=== PATIENT | male | born 1970 | race Caucasian/White ===

== ENCOUNTER 2017-10-11 11:33 | Inpatient (IN) | payer BC ==
[2017-10-11] MEDS ORDERED: SODIUM CHLORIDE 0.9% 1,000 ML IV ONE (12:40)
[2017-10-11] MEDS ORDERED: LIDOCAINE 2% INJ 20 MG/ML (20 ML MDV) ONE (13:56)
[2017-10-11] MEDS ORDERED: ALPRAZolam 0.25 MG TAB PO PRN (13:57)
[2017-10-11] MEDS ORDERED: ALPRAZolam 0.5 MG TAB PO PRN (13:57)
[2017-10-11] MEDS ORDERED: NITROGLYCERIN SL TABS 0.4 MG TAB SUBLINGUAL PRN ×2 (13:57→14:54)
[2017-10-11] MEDS ORDERED: ASPIRIN 325 MG TAB PO STA (13:57)
[2017-10-11] MEDS ORDERED: MIDAZOLAM 2 MG/2 ML VIAL ONE (14:27)
[2017-10-11] MEDS ORDERED: LIDOCAINE 2% INJ 20 MG/ML SQ ONE (14:29)
[2017-10-11] MEDS ORDERED: MIDAZOLAM 2 MG/2 ML VIAL IV ONE (14:30)
[2017-10-11] MEDS ORDERED: BIVALIRUDIN BOLUS 250 MG/50 ML IV ONE (14:35)
[2017-10-11] MEDS ORDERED: BIVALIRUDIN 250 MG in SODIUM CHLORIDE 0.9% 50 ML IV ONE (14:35)
[2017-10-11] MEDS ORDERED: NITROGLYCERIN 1000MCG/10ML SYRINGE INTRACORON ONE (14:42)
[2017-10-11] MEDS ORDERED: TICAGRELOR 90 MG TAB ONE (14:45)
[2017-10-11] MEDS ORDERED: TICAGRELOR 90 MG TAB PO ONE (14:46)
[2017-10-11] MEDS ORDERED: IOHEXOL 350 MG/ML (PER ML) 100ML BTL INJ ONE (14:48)
[2017-10-11] MEDS ORDERED: ZOLPIDEM 5 MG TAB PO PRN (14:54)
[2017-10-11] MEDS ORDERED: MAG HYDROX/AL HYDROX/SIMETH 30 ML CUP PO PRN (14:54)
[2017-10-11] MEDS ORDERED: RX INFO: IV CONTRAST WAS GIVEN 1 EACH MISC MISCELLANE PRN (14:54)
[2017-10-11] MEDS ORDERED: ATROPINE SULFATE 0.1 MG/ML 10ML SYRINGE IV PRN (14:54)
--- NOTE | 2017-10-11 16:22 | PTCA ---
PERCUTANEOUSTRANS CORORONARY ANGIOGRAPHY DATE OF SERVICE: 10/11/2017. PROCEDURE: PTCA and stenting of dominant distal right coronary artery. PERFORMED BY: Dr. Sarah Marcos. ANESTHESIA: Moderate conscious sedation time 19 minutes. CLINICAL INFORMATION: Mr. Lior Lao is a 47-year-old gentleman with family history of CAD who smokes 1-2 packs a day. He came in to [facility] with a clinical picture of non-ST elevation [facility] and underwent a cardiac cath by Dr. Briscoe. Study revealed an 80-90% distal RCA stenosis and he was transferred with a sheath already in place. He was advised PCI and I discussed with the patient the rationale, risks, benefits, options and proceeded to perform the procedure on the same day. PROCEDURE NOTE: The existing 6-Kyrgyz introducer in the right femoral artery was used to perform the procedure. The patient received Angiomax bolus and infusion as per protocol. He also received 180 mg of Brilinta. A standard right Lorne guide catheter was used to cannulate the right coronary artery. A BMW wire was used to cross the lesion. Without predilatation, a 2.5 caliber 12 mm long Xience stent was deployed at 13 atmospheres. Patient had mild chest discomfort and inferior ST elevation. Excellent angiographic result was achieved without complication. The sheath was taken out and Angio-Seal device used to secure hemostasis and he was sent to the room in stable condition. ASSESSMENT: From the pre PTCA stenosis of about 80-90% after stenting the residual stenosis is 0% with remarkably improved angiographic appearance and flow without complication. Results were discussed with the patient but no family was available. MMODL / IJN: [id number] /
[2017-10-11] MEDS: SODIUM CHLORIDE 0.9% 1,000 ML IV SCH (18:44)
[2017-10-11] MEDS ORDERED: ATORVASTATIN 80 MG TAB PO SCH (21:00)
[2017-10-11] MEDS ORDERED: LISINOPRIL 10 MG TAB PO SCH (21:00)
[2017-10-12] MEDS: SODIUM CHLORIDE 0.9% 1,000 ML IV SCH (06:11)
[2017-10-12 07:24] LABS: Basophils # (A) 0.1 k/uL (0-0.2); Basophils % (A) 1 %; Eosinophils # (A) 0.3 k/uL (0-0.7); Eosinophils % (A) 4 %; HGB 19.8 gm/dL (13.0-17.5); Lymphocytes # (A) 1.6 k/uL (1.0-4.8); Lymphocytes % (A) 18 %; MCH 32.8 pg (25.0-35.0); MCHC 32.6 g/dL (31.0-37.0); MCV 100.5 fL (80.0-100.0); Macrocytosis Slight; Mean Platelet Volume 7.4; Monocytes # (A) 0.6 k/uL (0-1.0); Monocytes % (A) 7 %; Neutrophils # (A) 6.4 k/uL (1.3-7.7); Neutrophils % (A) 69 %; Platelet Count 209 k/uL (150-450); RBC 6.05 m/uL (4.30-5.90); RDW 14.4 % (11.5-15.5); WBC 9.2 k/uL (3.8-10.6)
[2017-10-12 07:28] LABS: Blood Urea Nitrogen 8 mg/dL (9-20); Calcium 9.8 mg/dL (8.4-10.2); Carbon Dioxide 21 mmol/L (22-30); Glucose 108 mg/dL (74-99); Potassium 4.5 mmol/L (3.5-5.1); Sodium 140 mmol/L (137-145)
[2017-10-12 07:42] LABS: Anion Gap 12 mmol/L; Chloride 107 mmol/L (98-107)
[2017-10-12 07:44] LABS: HCT 60.8 % (39.0-53.0)
[2017-10-12] MEDS: NICOTINE 14MG/24HR PATCH TRANSDERM SCH ×2 (08:44→08:55)
[2017-10-12] MEDS ORDERED: CLOPIDOGREL 75 MG TAB PO SCH (09:00)
[2017-10-12] MEDS ORDERED: ASPIRIN 81 MG PO SCH (09:00)
[2017-10-12 09:01] VITALS: BP 135/85; PULSE 62; RESP 18; TEMP 96.5
[2017-10-12 09:46] VITALS: BMI 24.3
--- NOTE | 2017-10-12 10:43 | DS ---
DISCHARGE SUMMARY DATE OF ADMISSION: 10/11/2017 DATE OF DISCHARGE: 10/12/2017. PROCEDURES PERFORMED: Left heart angioplasty with stent placement of right coronary artery. This is a 47-year-old gentleman who was admitted to [facility] with chest pain and underwent cardiac catheterization that revealed a tight stenosis involving right coronary artery. He was transferred to [place] where he underwent angioplasty with stent placement. Overnight he has done well and is free of symptoms. He is free of angina. Groin is free of bleeding or hematoma. Foot pulses are intact. On exam, vital signs are stable. There is no jugular venous distention. Chest is clear to auscultation. Heart exam reveals first and second heart sounds. No gallop. Examination of the extremities did not reveal edema. Peripheral pulses are felt. GROIN: There is no bruit. LABS: His hemoglobin is 19.8. Platelet count is normal. Potassium is 4.5. Creatinine is 0.8. DISCHARGE MEDICATIONS: Discharge medications Include: 1. Aspirin. 2. Lipitor 80 mg daily. 3. Plavix 75 mg daily. 4. Lisinopril 10 mg daily. FOLLOWUP: He will be followed up in my office in a week's time. MMODL / IJN: [id number] /
== END 2017-10-12 11:09 | disposition home or self-care (01) | DRG 247 ==
LOC: 6SEL 15:48
PROVIDERS: ADMIT Internal Medicine Interventional Cardiology; ATTEND Internal Medicine Interventional Cardiology
PROC: 027034Z Dilation of Coronary Artery, One Artery with Drug-eluting Intraluminal Device, Percutaneous Approach (ICD-10-PCS; principal; 2017-10-11 13:59)
DX: I21.4 Non-ST elevation (NSTEMI) myocardial infarction (principal); E78.5 Hyperlipidemia, unspecified; I10 Essential (primary) hypertension; F17.210 Nicotine dependence, cigarettes, uncomplicated; I25.10 Atherosclerotic heart disease of native coronary artery without angina pectoris; Z82.49 Family history of ischemic heart disease and other diseases of the circulatory system
CPT/HCPCS: 80048; 85025

== ENCOUNTER 2018-02-02 08:41 | Observation (INO) | payer BC ==
[2018-02-02] MEDS ORDERED: NITROGLYCERIN OINT 1 INCH/GM PACKET TOPICAL STA (08:50)
[2018-02-02] MEDS ORDERED: ASPIRIN 81 MG PO STA (08:50)
--- NOTE | 2018-02-02 08:55 | ED ---
General Adult HPI - General Chief complaint: Chest Pain Stated complaint: CHEST PAIN Time Seen by Provider: 02/02/18 08:41 Source: EMS, RN notes reviewed Mode of arrival: EMS Limitations: no limitations - History of Present Illness Initial comments: This is a 47-year-old male who presents emergency Department with a past medical history significant for cardiac stents smoking high blood pressure high cholesterol. Patient states he comes in today because started having chest pain about 45 minutes ago at work while exerting himself. Patient states he was mildly short of breath. Patient denies any radiation of the pain today. Patient states it was a pressure sensation just like he had before when he had a stent placed. Patient states the only differences that last time he had radiation of the pain to the neck and arm which she does not have today. Any abdominal pain patient denies any nausea or vomiting. Patient states she was diaphoretic at the scene. Patient states he received an aspirin and nitroglycerin in route and it took away his pain. Patient denies any recent fever chills or cough. Patient denies headache patient denies numbness weakness. - Related Data Home Medications Medication Instructions Recorded Confirmed Ibuprofen [Advil] 400 mg PO Q6HR PRN 02/02/18 02/02/18 Lisinopril [Zestril] 20 mg PO DAILY 02/02/18 02/02/18 Previous Rx's Medication Instructions Recorded Aspirin 81 mg PO DAILY #30 chew 10/12/17 Atorvastatin [Lipitor] 80 mg PO HS #30 tab 10/12/17 Clopidogrel [Plavix] 75 mg PO DAILY #30 tab 10/12/17 Allergies Allergy/AdvReac Type Severity Reaction Status Date / Time amoxicillin Allergy Rash/Hives Verified 02/02/18 09:25 Review of Systems ROS Statement: Those systems with pertinent positive or pertinent negative responses have been documented in the HPI. ROS Other: All systems not noted in ROS Statement are negative. Past Medical History Past Medical History: Chest Pain / Angina, Hypertension Additional Past Medical History / Comment(s): arthritis History of Any Multi-Drug Resistant Organisms: None Reported Past Surgical History: Appendectomy, Heart Catheterization With Stent, Tonsillectomy Additional Past Surgical History / Comment(s): Stent placed September 2017 Smoking Status: Current every day smoker General Exam - General Exam Comments Initial Comments: GENERAL: Patient is well-developed and well-nourished. Patient is nontoxic and well- hydrated and is in mild distress. ENT: Neck is soft and supple. No significant lymphadenopathy is noted. Oropharynx is clear. Moist mucous membranes. Neck has full range of motion without eliciting any pain. EYES: The sclera were anicteric and conjunctiva were pink and moist. Extraocular movements were intact and pupils were equal round and reactive to light. Eyelids were unremarkable. PULMONARY: Unlabored respirations. Good breath sounds bilaterally. No audible rales rhonchi or wheezing was noted. CARDIOVASCULAR: There is a regular rate and rhythm without any murmurs gallops or rubs. ABDOMEN: Soft and nontender with normal bowel sounds. No palpable organomegaly was noted. There is no palpable pulsatile mass. SKIN: Skin is clear with no lesions or rashes and otherwise unremarkable. NEUROLOGIC: Patient is alert and oriented x3. Cranial nerves II through XII are grossly intact. Motor and sensory are also intact. Normal speech, volume and content. Symmetrical smile. MUSCULOSKELETAL: Normal extremities with adequate strength and full range of motion. No lower extremity swelling or edema. No calf tenderness. LYMPHATICS: No significant lymphadenopathy is noted PSYCHIATRIC: Normal psychiatric evaluation. Normal interpersonal interactions appears functionally intact in deals appropriately with others. No signs of depression. No signs of anxiety. Limitations: no limitations Course Vital Signs 02/02/18 02/02/18 08:44 10:26 Temperature 97.8 F Pulse Rate 58 L 53 L Respiratory 18 16 Rate Blood Pressure 154/93 138/75 O2 Sat by Pulse 99 99 Oximetry Medical Decision Making - Medical Decision Making EKG shows sinus bradycardia 57 bpm AL interval 112 QRS is 88 QT interval is 420 QTC is 408. Patient's EKG shows no ST segment elevation or depression or T wave abnormalities are noted. Patient's chest x-ray shows no acute abnormality. Patient had relief with nitroglycerin. Patient was started on heparin because the unstable angina. I spoke with Dr. Kurtz and he agreed to admit the patient admitted the patient I wrote admitting orders I consult to cardiology continue the heparin Nitropaste and aspirin on the floor. - Lab Data Result diagrams: 02/02/18 08:52 02/02/18 08:52 Lab Results 02/02/18 02/02/18 02/02/18 Range/Units 08:52 08:52 08:52 WBC 11.3 H (3.8-10.6) k/uL RBC 3.72 L (4.30-5.90) m/uL Hgb 12.2 L (13.0-17.5) gm/dL Hct 35.0 L (39.0-53.0) % MCV 94.1 (80.0-100.0) fL MCH 32.9 (25.0-35.0) pg MCHC 35.0 (31.0-37.0) g/dL RDW 14.0 (11.5-15.5) % Plt Count 278 (150-450) k/uL Neutrophils % 64 % Lymphocytes % 26 % Monocytes % 6 % Eosinophils % 3 % Basophils % 1 % Neutrophils # 7.2 (1.3-7.7) k/uL Lymphocytes # 2.9 (1.0-4.8) k/uL Monocytes # 0.6 (0-1.0) k/uL Eosinophils # 0.3 (0-0.7) k/uL Basophils # 0.1 (0-0.2) k/uL PT (9.0-12.0) sec INR (<1.2) APTT (22.0-30.0) sec Sodium 140 (137-145) mmol/L Potassium 4.1 (3.5-5.1) mmol/L Chloride 108 H (98-107) mmol/L Carbon Dioxide 20 L (22-30) mmol/L Anion Gap 12 mmol/L BUN 17 (9-20) mg/dL Creatinine 0.77 (0.66-1.25) mg/dL Est GFR (CKD-EPI)AfAm >90 (>60 ml/min/1.73 sqM) Est GFR (CKD-EPI)NonAf >90 (>60 ml/min/1.73 sqM) Glucose 114 H (74-99) mg/dL Calcium 9.4 (8.4-10.2) mg/dL Magnesium 1.7 (1.6-2.3) mg/dL Total Bilirubin 0.9 (0.2-1.3) mg/dL AST 28 (17-59) U/L ALT 40 (21-72) U/L Alkaline Phosphatase 77 (38-126) U/L Total Creatine Kinase 169 (55-170) U/L CK-MB (CK-2) 1.1 (0.0-2.4) ng/mL CK-MB (CK-2) Rel Index 0.7 Troponin I <0.012 (0.000-0.034) ng/mL Total Protein 5.8 L (6.3-8.2) g/dL Albumin 3.8 (3.5-5.0) g/dL 02/02/18 Range/Units 08:52 WBC (3.8-10.6) k/uL RBC (4.30-5.90) m/uL Hgb (13.0-17.5) gm/dL Hct (39.0-53.0) % MCV (80.0-100.0) fL MCH (25.0-35.0) pg MCHC (31.0-37.0) g/dL RDW (11.5-15.5) % Plt Count (150-450) k/uL Neutrophils % % Lymphocytes % % Monocytes % % Eosinophils % % Basophils % % Neutrophils # (1.3-7.7) k/uL Lymphocytes # (1.0-4.8) k/uL Monocytes # (0-1.0) k/uL Eosinophils # (0-0.7) k/uL Basophils # (0-0.2) k/uL PT 10.2 (9.0-12.0) sec INR 1.0 (<1.2) APTT 23.7 (22.0-30.0) sec Sodium (137-145) mmol/L Potassium (3.5-5.1) mmol/L Chloride (98-107) mmol/L Carbon Dioxide (22-30) mmol/L Anion Gap mmol/L BUN (9-20) mg/dL Creatinine (0.66-1.25) mg/dL Est GFR (CKD-EPI)AfAm (>60 ml/min/1.73 sqM) Est GFR (CKD-EPI)NonAf (>60 ml/min/1.73 sqM) Glucose (74-99) mg/dL Calcium (8.4-10.2) mg/dL Magnesium (1.6-2.3) mg/dL Total Bilirubin (0.2-1.3) mg/dL AST (17-59) U/L ALT (21-72) U/L Alkaline Phosphatase (38-126) U/L Total Creatine Kinase (55-170) U/L CK-MB (CK-2) (0.0-2.4) ng/mL CK-MB (CK-2) Rel Index Troponin I (0.000-0.034) ng/mL Total Protein (6.3-8.2) g/dL Albumin (3.5-5.0) g/dL Critical Care Time Critical Care Time: Yes Total Critical Care Time: 35 Disposition Clinical Impression: Unstable angina pectoris Disposition: ADMITTED IP TO THIS HOSP Referrals: Katlyn Díaz MD [Primary Care Provider] - 1-2 days Time of Disposition: 10:35
--- NOTE | 2018-02-02 09:12 | XR ---
EXAMINATION TYPE: XR chest 2V DATE OF EXAM: 02/02/2018 COMPARISON: 05/28/2009 HISTORY: Chest pain TECHNIQUE: Frontal and lateral views of the chest are obtained. FINDINGS: There is no focal air space opacity. No evidence for pneumothorax. No pleural effusion. The cardiac silhouette size is within normal limits. The osseous structures are grossly intact. IMPRESSION: 1. No acute cardiopulmonary process.
[2018-02-02 09:34] LABS: Basophils # (A) 0.1 k/uL (0-0.2); Basophils % (A) 1 %; Eosinophils # (A) 0.3 k/uL (0-0.7); Eosinophils % (A) 3 %; HGB 12.2 gm/dL (13.0-17.5); Lymphocytes # (A) 2.9 k/uL (1.0-4.8); Lymphocytes % (A) 26 %; MCH 32.9 pg (25.0-35.0); MCV 94.1 fL (80.0-100.0); Mean Platelet Volume 7.3; Monocytes # (A) 0.6 k/uL (0-1.0); Monocytes % (A) 6 %; Neutrophils # (A) 7.2 k/uL (1.3-7.7); Neutrophils % (A) 64 %; Platelet Count 278 k/uL (150-450); RBC 3.72 m/uL (4.30-5.90); WBC 11.3 k/uL (3.8-10.6)
[2018-02-02 09:45] LABS: ALT 40 U/L (21-72); AST 28 U/L (17-59); Albumin 3.8 g/dL (3.5-5.0); Alkaline Phosphatase 77 U/L (38-126); Anion Gap 12 mmol/L; Blood Urea Nitrogen 17 mg/dL (9-20); Calcium 9.4 mg/dL (8.4-10.2); Carbon Dioxide 20 mmol/L (22-30); Chloride 108 mmol/L (98-107); Glucose 114 mg/dL (74-99); Magnesium 1.7 mg/dL (1.6-2.3); Potassium 4.1 mmol/L (3.5-5.1); Sodium 140 mmol/L (137-145); Total Bilirubin 0.9 mg/dL (0.2-1.3); Total Protein 5.8 g/dL (6.3-8.2)
[2018-02-02 09:46] LABS: Partial Thromboplastin Time 23.7 sec (22.0-30.0); Prothrombin Time 10.2 sec (9.0-12.0)
[2018-02-02 10:01] LABS: Creatine Kinase 169 U/L (55-170)
[2018-02-02 10:14] LABS: Creatine Kinase MB 1.1 ng/mL (0.0-2.4); Troponin I <0.012 ng/mL (0.000-0.034)
[2018-02-02] MEDS ORDERED: HEPARIN SODIUM,PORCINE 5,000 UNIT/ML 1 ML VIAL IV ONE (10:34)
[2018-02-02] MEDS ORDERED: NITROGLYCERIN SL TABS 0.4 MG TAB SUBLINGUAL PRN (10:36)
[2018-02-02] MEDS ORDERED: HEPARIN SODIUM,PORCINE/D5W PMX 25,000 UNIT in DEXTROSE/WATER 1 500ML.BAG IV SCH (10:45)
[2018-02-02] MEDS ORDERED: HEPARIN SOD,PORK IN 0.45% NACL 25,000 UNIT in 0.45% NACL 1 500ML.BAG IV SCH (10:45)
--- NOTE | 2018-02-02 11:44 | P.HPIM ---
History of Present Illness Is an 65 years old male with past medical history of coronary artery disease, and diverticular disease. SP cardiac cath and stent placement in 09/2017 which showed a right coronary artery stenosis who presents because of chest pain of one-day duration, was at work when he felt central chest pain, nonradiating, pressure-like, 7/10 in severity, similar to the September chest pain when he heart heart attack. His chest pain is almost resolved by the time I'm seeing the patient. Patient confirms to me he was taking his Plavix and aspirin at home as well as at rest of his medication In the ED patient blood cell count of 11.3 K. Hemoglobin 12.2. INR is 1.0. Creatinine 0.77. Chest x-ray shows no acute cardiopulmonary process EKG shows sinus bradycardia with sinus arrhythmia Patient is currently smoker about one PPD, alcohol occasionally, illicit drugs only marijuana, no cough Review of Systems CONSTITUTIONAL: No fever, no malaise, no fatigue. HEENT: No recent visual problems or hearing problems. Denied any sore throat. CARDIOVASCULAR: No orthopnea, PND, no palpitations, no syncope. PULMONARY: No shortness of breath, no cough, no hemoptysis. GASTROINTESTINAL: No diarrhea, no nausea, no vomiting, no abdominal pain. Normoactive bowel sounds. NEUROLOGICAL: No headaches, no weakness, no numbness. HEMATOLOGICAL: Denies any bleeding or petechiae. GENITOURINARY: Denies any burning micturition, frequency, or urgency. MUSCULOSKELETAL/RHEUMATOLOGICAL: Denies any joint pain, swelling, or any muscle pain. ENDOCRINE: Denies any polyuria or polydipsia. Past Medical History Past Medical History: Chest Pain / Angina, Hypertension Additional Past Medical History / Comment(s): arthritis History of Any Multi-Drug Resistant Organisms: None Reported Past Surgical History: Appendectomy, Heart Catheterization With Stent, Tonsillectomy Additional Past Surgical History / Comment(s): Stent placed September 2017 Smoking Status: Current every day smoker Medications and Allergies Home Medications Medication Instructions Recorded Confirmed Type Aspirin 81 mg PO DAILY #30 chew 10/12/17 02/02/18 Rx Atorvastatin [Lipitor] 80 mg PO HS #30 tab 10/12/17 02/02/18 Rx Clopidogrel [Plavix] 75 mg PO DAILY #30 tab 10/12/17 02/02/18 Rx Ibuprofen [Advil] 400 mg PO Q6HR PRN 02/02/18 02/02/18 History Lisinopril [Zestril] 20 mg PO DAILY 02/02/18 02/02/18 History Allergies Allergy/AdvReac Type Severity Reaction Status Date / Time amoxicillin Allergy Rash/Hives Verified 02/02/18 09:25 Physical Exam Vitals: Vital Signs Temp Pulse Resp BP Pulse Ox 02/02/18 11:06 50 L 18 123/70 99 02/02/18 10:26 53 L 16 138/75 99 02/02/18 08:44 97.8 F 58 L 18 154/93 99 Intake and Output 02/01/18 02/02/18 02/02/18 22:59 06:59 14:59 Other: Weight 73.482 kg GENERAL: The patient is alert and oriented x3, not in any acute distress. Well developed, well nourished. HEENT: Pupils are round and equally reacting to light. EOMI. No scleral icterus. No conjunctival pallor. Normocephalic, atraumatic. No pharyngeal erythema. No thyromegaly. CARDIOVASCULAR: S1 and S2 present. No murmurs, rubs, or gallops. PULMONARY: Chest is clear to auscultation, no wheezing or crackles. ABDOMEN: Soft, nontender, nondistended, normoactive bowel sounds. No palpable organomegaly. MUSCULOSKELETAL: No joint swelling or deformity. EXTREMITIES: No cyanosis, clubbing, or pedal edema. NEUROLOGICAL: Gross neurological examination did not reveal any focal deficits. SKIN: No rashes. Results CBC & Chem 7: 02/02/18 08:52 02/02/18 08:52 Labs: Abnormal Lab Results - Last 24 Hours (Table) 02/02/18 02/02/18 Range/Units 08:52 08:52 WBC 11.3 H (3.8-10.6) k/uL RBC 3.72 L (4.30-5.90) m/uL Hgb 12.2 L (13.0-17.5) gm/dL Hct 35.0 L (39.0-53.0) % Chloride 108 H (98-107) mmol/L Carbon Dioxide 20 L (22-30) mmol/L Glucose 114 H (74-99) mg/dL Total Protein 5.8 L (6.3-8.2) g/dL Assessment and Plan Plan: -Chest pain syndrome, patient has history of CAD, SP catheter and stent placement on 09/2017, and consult cardiology team for evaluation. First troponin is negative at less than 0.012. Patient is on heparin drip, continue with aspirin. He was on Plavix at home -Bradycardia, heart rate is in the 50s. Patient denies dizziness. He is not on beta amber. Cardiology team evaluating the patient -Hypertension, continue with lisinopril -Hyperlipidemia continue with Lipitor 80 mg at bedtime -current smoker , 1 PPD, counseled and wants to quit. Continue with nicotine patch DVT prophylaxis he is already on heparin drip GI prophylaxis Pepcid
[2018-02-02] MEDS: CLOPIDOGREL 75 MG TAB PO SCH (12:51)
[2018-02-02] MEDS: FAMOTIDINE 20 MG TAB PO SCH ×2 (12:51→20:36)
[2018-02-02] MEDS: NICOTINE 21MG/24HR PATCH TRANSDERM SCH (12:51)
[2018-02-02] MEDS ORDERED: ALPRAZolam 0.25 MG TAB PO PRN (13:55)
[2018-02-02] MEDS ORDERED: SODIUM CHLORIDE 0.9% 1,000 ML in EMPTY BAG 1 BAG IV ONE (13:55)
[2018-02-02] MEDS ORDERED: ALPRAZolam 0.5 MG TAB PO PRN (13:55)
--- NOTE | 2018-02-02 14:09 | P.CRDCN ---
History of Present Illness History of present illness: Mr. Lao is a pleasant 47-year-old male past medical history significant for coronary artery disease s/p stenting of distal RCA 09/2017, hypertension and chronic tobacco use. He follows with Dr. Briscoe in the office. We have been asked to see him in consultation for chest pain. He states he developed a tightness in the left precordial region this morning while working. He had associated acute onset of diaphoresis and palpitations. The tightness persisted until EMS arrived and gave him 3 SL nitroglyerin. He denies shortness of breath, nausea, vomiting or dizziness. No radiation of the pain to the arm, back, neck or jaw. This is how he felt prior to his stent in September although last time he had radiation down his right arm. Despite recommendations he is still smoking. He states he is fairly compliant with medications but does miss sometimes. EKG reveals sinus mechanism with no acute ST or T-wave abnormalities. Chest xray is negative for an acute cardiopulmonary process. Laboratory data reviewed, WBC 11.3, hemoglobin 12.2, platelets 278, sodium 140, potassium 4.1, creatinine 0.77, GFR greater than 90, magnesium 1.7, cardiac enzymes negative 1. Current cardiac medications include Plavix 75 mg daily, atorvastatin 80 mg daily , lisinopril 20 mg daily and aspirin 81 mg daily. Most recent echocardiogram reveals preserved left ventricular systolic function with ejection fraction 55%. Review of Systems At the time of my exam: CONSTITUTIONAL: Denies fever. Denies chills. EYES: Denies blurred vision. Denies vision changes. Denies eye pain. EARS, NOSE, MOUTH & THROAT: Denies headache. Denies sore throat. Denies ear pain. CARDIOVASCULAR: Denies chest pain. Denies shortness of breath. Denies orthopnea. Denies PND. Denies palpitations. RESPIRATORY: Denies cough. GASTROINTESTINAL: Denies abdominal pain. Denies diarrhea. Denies constipation. Denies nausea. Denies vomiting. MUSCULOSKELETAL: Denies myalgias. INTEGUMENTARY: Denies pruitis. Denies rash. NEUROLOGIC: Denies numbness. Denies tingling. Denies weakness. PSYCHIATRIC: Denies anxiety. Denies depression. ENDOCRINE: Denies fatigue. Denies weight change. Denies polydipsia. Denies polyurina. GENITOURINARY: Denies burning, hematuria or urgency with micturation. HEMATOLOGIC: Denies history of anemia. Denies bleeding. Past Medical History Past Medical History: Chest Pain / Angina, Hypertension Additional Past Medical History / Comment(s): arthritis Last Myocardial Infarction Date:: 09/2017 History of Any Multi-Drug Resistant Organisms: None Reported Past Surgical History: Appendectomy, Heart Catheterization With Stent, Tonsillectomy Additional Past Surgical History / Comment(s): Stent placed September 2017 Past Anesthesia/Blood Transfusion Reactions: No Reported Reaction Date of Last Stent Placement:: 10/11/17 Smoking Status: Current every day smoker - Past Family History Father Family Medical History: Coronary Artery Disease (CAD), Myocardial Infarction (GA ) Additional Family Medical History / Comment(s): Father had CABG-6 vessel and cardiac stents. Pt does not know at what age his father had a GA. Mother Family Medical History: No Reported History Medications and Allergies Home Medications Medication Instructions Recorded Confirmed Type Aspirin 81 mg PO DAILY #30 chew 10/12/17 02/02/18 Rx Atorvastatin [Lipitor] 80 mg PO HS #30 tab 10/12/17 02/02/18 Rx Clopidogrel [Plavix] 75 mg PO DAILY #30 tab 10/12/17 02/02/18 Rx Ibuprofen [Advil] 400 mg PO Q6HR PRN 02/02/18 02/02/18 History Lisinopril [Zestril] 20 mg PO DAILY 02/02/18 02/02/18 History Allergies Allergy/AdvReac Type Severity Reaction Status Date / Time amoxicillin Allergy Rash/Hives Verified 02/02/18 09:25 Physical Exam Vitals: Vital Signs Temp Pulse Pulse Resp BP BP Pulse Ox 02/02/18 11:20 97.8 F 66 18 176/79 98 02/02/18 11:06 50 L 18 123/70 99 02/02/18 10:26 53 L 16 138/75 99 02/02/18 08:44 97.8 F 58 L 18 154/93 99 Intake and Output 02/01/18 02/02/18 02/02/18 22:59 06:59 14:59 Other: Weight 79 kg Blood pressure 176/79 heart rate 66 afebrile maintaining oxygen saturation on room air GENERAL: This is a 47-year-old male in no apparent distress at the time of my examination. HEENT: Head is atraumatic, normocephalic. Pupils are equal, round. Sclerae anicteric. Conjunctivae are clear. Mucous membranes of the mouth are moist. Neck is supple. There is no jugular venous distention. No carotid bruit is heard. LUNGS: Clear to auscultation no wheezes, rales or rhonchi. No chest wall tenderness is noted on palpation or with deep breathing. HEART: Regular rate and rhythm without murmurs, rubs or gallops. S1 and S2 heard. ABDOMEN: Soft, nontender. Bowel sounds are heard. No organomegaly noted. EXTREMITIES: No evidence of peripheral edema and no calf tenderness noted. VASCULAR: Radial and dorsalis pedis pulses palpated, no evidence of clubbing. NEUROLOGIC: Patient is awake, alert and oriented x3. Results 02/02/18 08:52 02/02/18 08:52 Cardiac Enzymes 02/02/18 02/02/18 Range/Units 08:52 08:52 AST 28 (17-59) U/L CK-MB (CK-2) 1.1 (0.0-2.4) ng/mL Troponin I <0.012 (0.000-0.034) ng/mL Coagulation 02/02/18 Range/Units 08:52 PT 10.2 (9.0-12.0) sec APTT 23.7 (22.0-30.0) sec CBC 02/02/18 Range/Units 08:52 WBC 11.3 H (3.8-10.6) k/uL RBC 3.72 L (4.30-5.90) m/uL Hgb 12.2 L (13.0-17.5) gm/dL Hct 35.0 L (39.0-53.0) % Plt Count 278 (150-450) k/uL Comprehensive Metabolic Panel 02/02/18 Range/Units 08:52 Sodium 140 (137-145) mmol/L Potassium 4.1 (3.5-5.1) mmol/L Chloride 108 H (98-107) mmol/L Carbon Dioxide 20 L (22-30) mmol/L BUN 17 (9-20) mg/dL Creatinine 0.77 (0.66-1.25) mg/dL Glucose 114 H (74-99) mg/dL Calcium 9.4 (8.4-10.2) mg/dL AST 28 (17-59) U/L ALT 40 (21-72) U/L Alkaline Phosphatase 77 (38-126) U/L Total Protein 5.8 L (6.3-8.2) g/dL Albumin 3.8 (3.5-5.0) g/dL Current Medications Generic Name Dose Route Start Last Admin Trade Name Freq PRN Reason Stop Dose Admin Aspirin 325 mg 02/03/18 09:00 Aspirin PO DAILY [facility] Atorvastatin Calcium 80 mg 02/02/18 21:00 Lipitor PO HS [facility]IN[facility] Famotidine 20 mg 02/02/18 12:00 Pepcid PO BID [facility] Heparin Sodium/Dextrose 25,000 500 mls @ 17.63 mls/hr 02/02/18 10:45 11:00 unit/ IV Solution IV 12 units/kg/hr .Q24H AMINATA 17.63 mls/hr Protocol Administration 12 UNITS/KG/HR Lisinopril 20 mg 02/03/18 09:00 Zestril PO DAILY [facility] Nicotine 1 patch 02/02/18 12:00 Habitrol 21mg/24hr Patch TRANSDERM DAILY [facility] Nitroglycerin 1 inch 02/02/18 12:00 Nitro-Bid Oint TOPICAL Q6HR [facility] Nitroglycerin 0.4 mg 02/02/18 10:36 Nitrostat SUBLINGUAL Q5M PRN Chest Pain Intake and Output 02/01/18 02/02/18 02/02/18 22:59 06:59 14:59 Other: Weight 79 kg Patient Weight 02/03/18 06:59 Weight 79 kg 02/02/18 08:52 02/02/18 08:52 Assessment and Plan Assessment: ASSESSMENT 1. Unstable angina 2. History of known coronary artery disease status post recent angioplasty of the distal RCA September 2017 3. Hypertension, uncontrolled 4. Chronic nicotine dependence 5. Questionable compliance PLAN Obtain 2-D echocardiogram and Doppler study to assess cardiac structure and function We recommend proceeding with cardiac catheterization to assess for in-stent restenosis. I have discussed the risks, benefits and alternative therapies for the above-mentioned procedure and for both sedation/analgesia as well as necessary blood product administration, if indicated, as they pertain to this patient. The patient has indicated understanding and acceptance of the risks and procedures discussed. Questions have been answered appropriately and he is in agreement to move forward with the above stated procedure. 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 He has been bloated for this procedure tomorrow morning. Smoking cessations discussed. Further recommendations based upon clinical course. Thank you kindly for this consultation. Nurse Practitioner note has been reviewed, I agree with a documented findings and plan of care. Patient was seen and examined.
[2018-02-02] MEDS ORDERED: LISINOPRIL 20 MG TAB PO ONE (14:10)
[2018-02-02 17:06] LABS: Creatine Kinase 138 U/L (55-170)
[2018-02-02 17:20] LABS: Creatine Kinase MB 0.8 ng/mL (0.0-2.4); Troponin I <0.012 ng/mL (0.000-0.034)
[2018-02-02] MEDS: NITROGLYCERIN OINT 1 INCH/GM PACKET TOPICAL SCH ×3 (17:21→23:16)
[2018-02-02 19:51] VITALS: RESP 16
[2018-02-02] MEDS ORDERED: ACETAMINOPHEN TAB 325 MG TAB PO PRN (20:30)
[2018-02-02] MEDS ORDERED: ATORVASTATIN 80 MG TAB PO SCH (21:00)
[2018-02-02 22:47] LABS: Creatine Kinase 125 U/L (55-170)
[2018-02-02 23:01] LABS: Creatine Kinase MB 0.6 ng/mL (0.0-2.4); Troponin I <0.012 ng/mL (0.000-0.034)
[2018-02-03] MEDS: NITROGLYCERIN OINT 1 INCH/GM PACKET TOPICAL SCH ×3 (05:16→17:00)
[2018-02-03 05:53] LABS: Basophils # (A) 0.1 k/uL (0-0.2); Basophils % (A) 1 %; Eosinophils # (A) 0.4 k/uL (0-0.7); Eosinophils % (A) 4 %; HCT 36.1 % (39.0-53.0); HGB 12.4 gm/dL (13.0-17.5); Lymphocytes % (A) 34 %; MCH 32.8 pg (25.0-35.0); MCHC 34.2 g/dL (31.0-37.0); Mean Platelet Volume 7.2; Monocytes # (A) 0.5 k/uL (0-1.0); Monocytes % (A) 5 %; Neutrophils # (A) 4.7 k/uL (1.3-7.7); Neutrophils % (A) 54 %; Platelet Count 262 k/uL (150-450); RBC 3.76 m/uL (4.30-5.90); RDW 14.1 % (11.5-15.5); WBC 8.7 k/uL (3.8-10.6)
[2018-02-03 06:09] LABS: Anion Gap 8 mmol/L; Blood Urea Nitrogen 11 mg/dL (9-20); Calcium 8.9 mg/dL (8.4-10.2); Carbon Dioxide 25 mmol/L (22-30); Chloride 109 mmol/L (98-107); Cholesterol 106 mg/dL (<200); Glucose 109 mg/dL (74-99); HDL Cholesterol 38 mg/dL (40-60); LDL Cholesterol,Calculated 55 mg/dL (0-99); Potassium 3.8 mmol/L (3.5-5.1); Sodium 142 mmol/L (137-145); Triglycerides 65 mg/dL (<150)
[2018-02-03] MEDS ORDERED: ASPIRIN 325 MG TAB PO STA (08:02)
[2018-02-03] MEDS: FAMOTIDINE 20 MG TAB PO SCH (08:45)
[2018-02-03] MEDS: CLOPIDOGREL 75 MG TAB PO SCH (08:45)
[2018-02-03] MEDS: NICOTINE 21MG/24HR PATCH TRANSDERM SCH (08:45)
[2018-02-03] MEDS ORDERED: ASPIRIN 325 MG TAB PO SCH (09:00)
[2018-02-03] MEDS ORDERED: LISINOPRIL 20 MG TAB PO SCH (09:00)
[2018-02-03] MEDS ORDERED: ASPIRIN 81 MG PO SCH (09:00)
[2018-02-03] MEDS ORDERED: MIDAZOLAM 2 MG/2 ML VIAL ONE (09:21)
[2018-02-03] MEDS ORDERED: LIDOCAINE 2% INJ 20 MG/ML SQ ONE (09:22)
[2018-02-03] MEDS: MIDAZOLAM 2 MG/2 ML VIAL IV ONE ×2 (09:29→10:21)
[2018-02-03] MEDS ORDERED: SODIUM CHLORIDE 0.9% 1,000 ML IV ONE (09:29)
[2018-02-03] MEDS ORDERED: IV FLUID CONTINUATION 1,000 ML IV ONE (09:29)
[2018-02-03] MEDS ORDERED: IOPAMIDOL-370 125ML BTL INJ ONE (10:25)
[2018-02-03] MEDS ORDERED: RX INFO: IV CONTRAST WAS GIVEN 1 EACH MISC MISCELLANE PRN (10:31)
[2018-02-03] MEDS ORDERED: SODIUM CHLORIDE 0.9% 1,000 ML IV SCH (10:45)
--- NOTE | 2018-02-03 11:02 | CC ---
CARDIAC CATHETERIZATION REPORT INDICATION: Unstable angina. PROCEDURE NOTE: After obtaining informed consent, left heart catheterization and coronary angiogram were performed via the right femoral artery using standard Lorne catheters. Patient tolerated the procedure well without any obvious immediate complications. Femoral angiogram was performed and Angio-Seal was deployed for hemostasis. Patient received moderate conscious sedation and total sedation time was 10 minutes. We initially started cardiac catheterization around 9 o'clock. Patient was sedated at that time, but we could not do cardiac catheterization because of challenges with the equipment. Equipment was fixed and we started back the second cardiac cath around 10:15 or so. FINDINGS: 1. HEMODYNAMICS: Left ventricular end-diastolic pressure is 8 to 10 mm, there is no significant gradient across aortic valve. 2. LEFT VENTRICULOGRAM: Left ventriculogram is not performed. 3. ANGIOGRAPHIC DATA: 4. LEFT MAIN CORONARY ARTERY: Left main coronary artery is a normal-sized vessel and is free of stenosis. Divides into left anterior descending coronary artery, circumflex coronary artery and ramus intermedius. LAD and its branches and circumflex coronary artery are free of significant stenosis. 5. RAMUS INTERMEDIUS is a small caliber vessel that has both the proximal and middle areas of stenosis that at their worst same around 30%-40% stenosed and there is no significant progression compared to prior cardiac cath done in September. 6. RIGHT CORONARY ARTERY is a large dominant vessel and was previously stented in the distal part, the stent appears patent. CONCLUSION: 1. Patent stent within the right coronary artery. 2. Mild to moderate disease involving proximal and midportion of the ramus intermedius, which has remained unchanged compared to a cardiac catheterization done in September. Patient does not need any intervention at this time. We will continue with the optimal aggressive medical therapy and risk factor modification. MMODL / IJN: [id number] /
--- NOTE | 2018-02-03 11:29 | ECHOF ---
Referral Reason:cp MEASUREMENTS -------- HEIGHT: 175.3 cm WEIGHT: 78.9 kg BP: 176/79 RVIDd: 3.4 cm (< 3.3) IVSd: 0.9 cm (0.6 - 1.1) LVIDd: 4.8 cm (3.9 - 5.3) LVPWd: 0.9 cm (0.6 - 1.1) IVSs: 1.3 cm LVIDs: 3.8 cm LVPWs: 1.3 cm LA Diam: 3.0 cm (2.7 - 3.8) LAESV Index (A-L): 28.66 ml/m Ao Diam: 3.3 cm (2.0 - 3.7) AV Cusp: 1.7 cm (1.5 - 2.6) LA Diam: 3.7 cm (2.7 - 3.8) MV EXCURSION: 22.213 mm (> 18.000) MV EF SLOPE: 115 mm/s (70 - 150) EPSS: 0.4 cm MV E Shakir: 0.88 m/s MV DecT: 222 ms MV A Shakir: 0.81 m/s MV E/A Ratio: 1.08 RAP: 5.00 mmHg RVSP: 20.61 mmHg FINDINGS -------- Sinus rhythm. This was a technically good study. LV size, wall thickness and systolic function are normal, with an EF greater than 55%. The left marivel tricular size is normal. The right ventricle is normal in size. The left atrial size is normal. Normal LA size by volume 22+/-6 ml/m2. The right atrial size is normal. The aortic valve is trileaflet, and appears structurally normal. No aortic stenosis or regurgitation. Mild mitral annular calcification present. Mild mitral regurgitation is present. Mild tricuspid regurgitation present. There is no evidence of pulmonary hypertension. The right v entricular systolic pressure, as measured by Doppler, is 20.61mmHg. There is no pulmonic regurgitation present. The aortic root size is normal. There is no pericardial effusion. CONCLUSIONS -------- 1. LV size, wall thickness and systolic function are normal, with an EF greater than 55%. 2. The left ventricular size is normal. 3. The right ventricle is normal in size. 4. The left atrial size is normal. 5. Normal LA size by volume 22+/-6 ml/m2. 6. The right atrial size is normal. 7. The aortic valve is trileaflet, and appears structurally normal. No aortic stenosis or regurgitati on. 8. Mild mitral annular calcification present. 9. Mild mitral regurgitation is present. 10. Mild tricuspid regurgitation present. 11. There is no evidence of pulmonary hypertension. 12. The right ventricular systolic pressure, as measured by Doppler, is 20.61mmHg. 13. There is no pulmonic regurgitation present. 14. The aortic root size is normal. 15. There is no pericardial effusion. PRIVATE TUTOR: Kesha Garcia RDCS
--- NOTE | 2018-02-03 14:57 | P.DS ---
Providers Date of admission: 02/02/18 10:47 Attending physician: Justice Kurtz Consults: 02/02/18 10:36 Consult Physician Urgent Consulting Provider: [facility] Consult Reason/Comments: [place] Do you want consulting provider notified?: Yes Primary care physician: Bre Potts [facility] Course: Is an 65 years old male with past medical history of coronary artery disease, and diverticular disease. SP cardiac cath and stent placement in 09/2017 which showed a right coronary artery stenosis who presents because of chest pain of one-day duration, 7/10 in severity, similar to the September chest pain when he heart heart attack. His chest pain is almost resolved by the time I'm seeing the patient. Patient confirms to me he was taking his Plavix and aspirin at home as well as at rest of his medication. Chest x-ray shows no acute cardiopulmonary process. EKG shows sinus bradycardia with sinus arrhythmia. 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 Which showed patent stents. And he did not need any intervention at this time. Echo: EF more than 55%. Patient currently is chest pain-free. He is been cleared by cardiology for discharge. His leukocytosis improved and WBC is 8.7K upon discharge Patient is currently smoker about one PPD, alcohol occasionally, illicit drugs only marijuana. Patient is counseled to quit smoking risks including but not limited to cancers, heart disease, stroke, organ dysfunction and/or are explained to the patient and he verbalized understanding and acceptance Patient is found stable and can be discharged home however he needs follow-up as an outpatient Discharge exam GENERAL: The patient is alert and oriented x3, not in any acute distress. Well developed, well nourished. HEENT: Pupils are round and equally reacting to light. EOMI. No scleral icterus. No conjunctival pallor. Normocephalic, atraumatic. No pharyngeal erythema. No thyromegaly. CARDIOVASCULAR: S1 and S2 present. No murmurs, rubs, or gallops. PULMONARY: Chest is clear to auscultation, no wheezing or crackles. ABDOMEN: Soft, nontender, nondistended, normoactive bowel sounds. No palpable organomegaly. MUSCULOSKELETAL: No joint swelling or deformity. EXTREMITIES: No cyanosis, clubbing, or pedal edema. NEUROLOGICAL: Gross neurological examination did not reveal any focal deficits. SKIN: No rashes. Time spent more than 35 minutes Plan - Discharge Summary Discharge Rx Participant: No New Discharge Prescriptions: No Action Aspirin 81 mg PO DAILY #30 chew Atorvastatin [Lipitor] 80 mg PO HS #30 tab Clopidogrel [Plavix] 75 mg PO DAILY #30 tab Ibuprofen [Advil] 400 mg PO Q6HR PRN PRN Reason: Pain Lisinopril [Zestril] 20 mg PO DAILY Discharge Medication List Aspirin 81 mg PO DAILY #30 chew 10/12/17 [Rx] Atorvastatin [Lipitor] 80 mg PO HS #30 tab 10/12/17 [Rx] Clopidogrel [Plavix] 75 mg PO DAILY #30 tab 10/12/17 [Rx] Ibuprofen [Advil] 400 mg PO Q6HR PRN 02/02/18 [History] Lisinopril [Zestril] 20 mg PO DAILY 02/02/18 [History] Follow up Appointment(s)/Referral(s): Katlyn Díaz MD [Primary Care Provider] - 1-2 days Bird Briscoe MD [STAFF PHYSICIAN] - 02/10/18 2:15 pm
[2018-02-03 16:03] VITALS: BP 150/78; PULSE 58; TEMP 98.2
[2018-02-04] MEDS ORDERED: ASPIRIN 81 MG PO SCH (09:00)
== END 2018-02-03 18:14 | disposition home or self-care (01) ==
LOC: EC 08:41 → 3OBS 10:47
PROVIDERS: ADMIT Internal Medicine; ATTEND Internal Medicine
DX: R07.89 Other chest pain (principal); R06.02 Shortness of breath; R61 Generalized hyperhidrosis; I10 Essential (primary) hypertension; F17.210 Nicotine dependence, cigarettes, uncomplicated; D72.829 Elevated white blood cell count, unspecified; F12.90 Cannabis use, unspecified, uncomplicated; M19.90 Unspecified osteoarthritis, unspecified site; I25.110 Atherosclerotic heart disease of native coronary artery with unstable angina pectoris; K57.90 Diverticulosis of intestine, part unspecified, without perforation or abscess without bleeding; R00.1 Bradycardia, unspecified; Z95.5 Presence of coronary angioplasty implant and graft; Z79.82 Long term (current) use of aspirin; Z79.02 Long term (current) use of antithrombotics/antiplatelets; Z79.899 Other long term (current) drug therapy; Z88.0 Allergy status to penicillin; I25.2 Old myocardial infarction; Z90.89 Acquired absence of other organs; Z82.49 Family history of ischemic heart disease and other diseases of the circulatory system
CPT/HCPCS: 99152; 99291 ×2; 96365 ×2; 96376 ×2; 96366 ×2; 36415; 94760; 93005; 93306; 93458; 80061; 80053; 80048; 82550; 82553; 83735; 84484; 85025 ×2; 85610; 85730 ×2; 71046; G0378 ×2; C1760; C1894; C1769; S4990 ×2; J2001; J2250; J1644 ×2; Q9967

== ENCOUNTER 2018-06-17 08:26 | Day surgery (SDC) | payer BC ==
[2018-06-15 15:55] VITALS: BMI 25.1
--- NOTE | 2018-06-17 06:16 | HP ---
HISTORY AND PHYSICAL CHIEF COMPLAINT: Severely impacted cerumen of the right ear. HISTORY OF PRESENT ILLNESS: This patient is a 48-year-old male who was recently seen in my office complaining of having bilateral decreased hearing. At the time that he was seen in the office, clinical examination of the ears revealed bilaterally impacted cerumen. Initially all of the impacted cerumen was removed from the patient's left ear and there was evidence of a possible perforation of the left tympanic membrane. However, multiple attempts to remove the impacted cerumen from the right ear was not successful because the cerumen was packed down to and on to the right tympanic membrane, which made it quite uncomfortable. Therefore, it was recommended the patient undergo removal of impacted cerumen from the right external auditory canal under IV sedation. PAST MEDICAL HISTORY: Past medical history reveals the patient has allergies to AMOXICILLIN. His current medications atorvastatin, clopidogrel, one baby aspirin daily, lisinopril, clindamycin. REVIEW OF SYSTEMS: Review of systems reveals the cardiovascular system to be positive for hypertension. The metabolic endocrine system is positive for hypercholesterolemia. The remainder of the review of systems is essentially unremarkable. PHYSICAL EXAMINATION: This patient is a 48-year-old male who is alert and cooperative. HEENT EXAMINATION: Patient is normocephalic. Left tympanic membrane reveals a moderate- sized perforation of the left tympanic membrane with no cholesteatoma or drainage in the left middle ear space. Examination of the right ear however reveals severely impacted cerumen which is impacted against the right tympanic membrane. Pupils are equal, round, reactive to light and accommodation. Extraocular movements are within normal limits. Intranasal examination reveals moderate to severe septal deviation with bilateral compensatory hypertrophy of the inferior turbinates. Examination of the oropharynx, cranial nerves 2 through 12 and the remainder of the head and neck exam are all within normal limits. CHEST/CARDIOVASCULAR: Both lung willoughby are clear to percussion and auscultation. The patient is in regular sinus rhythm. S1 and S2 are present without any murmurs, S3s or S4s. Peripheral pulses are bilaterally symmetrical. ABDOMEN: There is no evidence of any masses, megaly, or tenderness. The abdomen is soft. Skin is unremarkable. Musculoskeletal and neurological are within normal limits. RECTAL EXAMINATION: The rectal exam is deferred at this time because the patient has this done on a regular basis at his family physician's office. The remainder of physical exam is essentially unremarkable. IMPRESSION: Severely impacted cerumen of the right external auditory canal. PLAN: The patient is scheduled to undergo removal of impacted cerumen of the right external auditory canal under IV sedation in the a.m. ATTENTION RNS: I have not ordered any pre-surgical medications or pre-surgical prophylactic antibiotics for this patient. If the pharmacy department sends any pre- surgical prophylactic antibiotics to the pre-surgical area for this patient, please cancel the order and return the medication to the pharmacy department and make sure that the patient's account is credited appropriately. I have discussed the risks, benefits and alternative therapies for the above-mentioned procedure and for both sedation/analgesia as well as necessary blood product administration, if indicated, as they pertain to this patient. The patient has indicated his or her understanding and acceptance of the risks and procedures discussed. AZAEL / DIXIE: [id number] /
[~2018-06-17 08:26] MED LIST: LACTATED RINGERS 1,000 ML IV SCH; Pre Op ABX Message 1 EACH MISC MISCELLANE ONE
[2018-06-17 08:38] VITALS: TEMP 97.8
[2018-06-17] MEDS ORDERED: LACTATED RINGERS 1,000 ML IV ONE (08:42)
[2018-06-17] MEDS ORDERED: LIDOCAINE 1% 20 ML VIAL (10MG/ML) FOR IV START INTRADERMA ONE (08:43)
[2018-06-17] MEDS ORDERED: ONDANSETRON 4 MG/2 ML VIAL IVP ONE (08:50)
[2018-06-17] MEDS ORDERED: DEXAMETHASONE SOD PHOS (MDV) 100 MG/10 ML VIAL IVP ONE (08:50)
[2018-06-17] MEDS ORDERED: PROPOFOL 10 MG/ML 20 ML VIAL IV ONE (10:05)
[2018-06-17] MEDS ORDERED: LIDOCAINE 1% INJ 10MG/ML (20 ML MDV) ONE (10:05)
[2018-06-17] MEDS ORDERED: OFLOXACIN 0.3% OPHTH DROPS 5 ML BOTTLE RIGHT EAR ONE ×2 (10:23→10:36)
[2018-06-17] MEDS ORDERED: OFLOXACIN 0.3% OPHTH DROPS 5 ML BOTTLE LEFT EAR ONE (10:40)
[2018-06-17 11:10] VITALS: BP 117/69; PULSE 49; RESP 16
--- NOTE | 2018-06-19 18:03 | HP ---
OPERATIVE REPORT DATE OF SURGERY: 06/17/2018 PREOPERATIVE DIAGNOSIS: Severely impacted cerumen of the right external auditory canal and bilateral tympanic membrane perforations. POSTOPERATIVE DIAGNOSES: Severely impacted cerumen of the right external auditory canal and bilateral tympanic membrane perforations. ANESTHESIA: IV sedation with MAC. OPERATIVE PROCEDURE: Removal of impacted cerumen from the right external auditory canal and inspection of the left tympanic membrane under anesthesia. SURGEON: Dr. Browne. COMPLICATIONS: None. OPERATIVE PROCEDURE: The patient is placed on operating table in supine position and after uneventful induction and IV sedation, satisfactory sedation was obtained. Next, using the Zeiss operating microscope and a #3 aural speculum, the right external auditory canal was noted to be severely impacted with cerumen, which was impacted against the right tympanic membrane and into the right middle ear space. Therefore, the cerumen was very carefully peeled away from the skin of the external auditory canal and from the skin of the tympanic membrane remnant. In addition to this, the cerumen was carefully removed from the right middle ear space so as to not disturb the middle ear ossicles. After removing the cerumen, it was noted that there was a small amount of purulent material in the middle ear space with no evidence of any cholesteatoma. The middle ear ossicles in the right ear appeared to be intact. Attention was then directed to the left ear where again using the Zeiss operating microscope and a #3 aural speculum, the left external auditory canal was cleansed of all wax and debris. Inspection revealed that the patient had some purulent material in the left external auditory canal which was coming from the middle ear space. There was a central perforation of the left tympanic membrane. All of the purulent material was suctioned free from middle ear space and middle ear ossicles appeared to be free of any infection or cholesteatoma. The middle ear ossicles in the left ear also appeared to be intact. At this point, the procedure was terminated. There were no intraoperative complications. Patient tolerated procedure well and was returned to the recovery room in satisfactory condition. MMODL / IJN: [id number] / MTDD
== END 2018-06-17 11:37 | disposition home or self-care (01) ==
LOC: OR 08:26
PROVIDERS: ATTEND Otolaryngology
DX: H61.23 Impacted cerumen, bilateral (principal); I10 Essential (primary) hypertension; E78.00 Pure hypercholesterolemia, unspecified; I25.2 Old myocardial infarction; Z95.5 Presence of coronary angioplasty implant and graft; F17.210 Nicotine dependence, cigarettes, uncomplicated; Z88.0 Allergy status to penicillin; Z79.2 Long term (current) use of antibiotics; Z79.02 Long term (current) use of antithrombotics/antiplatelets; Z79.82 Long term (current) use of aspirin; Z79.899 Other long term (current) drug therapy; H72.93 Unspecified perforation of tympanic membrane, bilateral
CPT/HCPCS: 69210; J2405; J2001; J1100; J2704

== ENCOUNTER 2019-03-08 16:21 | Emergency (ER) | payer BC ==
--- NOTE | 2019-03-08 17:02 | ED ---
ENT HPI - General Chief complaint: Dental/Oral Stated complaint: Dental pain Time Seen by Provider: 03/08/19 16:57 Source: patient, RN notes reviewed, old records reviewed Mode of arrival: ambulatory Limitations: no limitations - History of Present Illness Initial comments: This is a 48-year-old male the ER with known history of dental disease. Patient resents today for evaluation dental abscess and x-ray sinusitis, no fevers. Patient denies any recent trauma. Patient was getting tooth pulled at dentists today and they're concerned over swelling over the aspect of right aspect of his maxilla right toe area. Patient is no difficulty swelling. No other complaints MD complaint: tooth pain, other (Right facial swelling) -: days(s) Location: R ear Severity: moderate Severity scale (1-10): 5 Improves with: none Worsens with: none Associated Symptoms: sore throat - Related Data Home Medications Medication Instructions Recorded Confirmed Clopidogrel [Plavix] 75 mg PO DAILY 06/15/18 03/08/19 Lisinopril [Zestril] 10 mg PO DAILY 06/15/18 03/08/19 Atorvastatin [Lipitor] 80 mg PO DAILY 03/08/19 03/08/19 Azithromycin [Zithromax] 500 mg PO DAILY 03/08/19 03/08/19 Ibuprofen [Motrin] 800 mg PO TID PRN 03/08/19 03/08/19 Previous Rx's Medication Instructions Recorded Aspirin 81 mg PO DAILY #30 chew 10/12/17 Clindamycin HCl [Cleocin] 300 mg PO Q6HR #40 cap 03/08/19 Allergies Allergy/AdvReac Type Severity Reaction Status Date / Time amoxicillin Allergy Rash/Hives Verified 03/08/19 17:30 Review of Systems ROS Statement: Those systems with pertinent positive or pertinent negative responses have been documented in the HPI. ROS Other: All systems not noted in ROS Statement are negative. Past Medical History Past Medical History: Chest Pain / Angina, Hyperlipidemia, Hypertension, Myocardial Infarction ([place]) Additional Past Medical History / Comment(s): 'silent heart attack', bruises easily, constipation, Last Myocardial Infarction Date:: 10/11/2017 History of Any Multi-Drug Resistant Organisms: None Reported Past Surgical History: Appendectomy, Heart Catheterization With Stent, Hernia Repair, Tonsillectomy Additional Past Surgical History / Comment(s): one cardiac stent, cyst removed from back of left leg, Past Anesthesia/Blood Transfusion Reactions: No Reported Reaction Date of Last Stent Placement:: 10/11/17 Past Psychological History: No Psychological Hx Reported Smoking Status: Current every day smoker - Past Family History Father Family Medical History: Deep Vein Thrombosis (DVT), Myocardial Infarction ([place]) Additional Family Medical History / Comment(s): CABG Mother Family Medical History: No Reported History General Exam - General Exam Comments Initial Comments: Right-sided facial swelling Limitations: no limitations General appearance: alert, in no apparent distress Head exam: Present: atraumatic, normocephalic, normal inspection Eye exam: Present: normal appearance, PERRL, EOMI. Absent: scleral icterus, conjunctival injection, periorbital swelling ENT exam: Present: normal exam, mucous membranes moist Neck exam: Present: normal inspection. Absent: tenderness, meningismus, lymphadenopathy Respiratory exam: Present: normal lung sounds bilaterally. Absent: respiratory distress, wheezes, rales, rhonchi, stridor Cardiovascular Exam: Present: regular rate, normal rhythm, normal heart sounds. Absent: systolic murmur, diastolic murmur, rubs, gallop, clicks GI/Abdominal exam: Present: soft, normal bowel sounds. Absent: distended, tenderness, guarding, rebound, rigid Extremities exam: Present: normal inspection, full ROM, normal capillary refill. Absent: tenderness, pedal edema, joint swelling, calf tenderness Back exam: Present: normal inspection Neurological exam: Present: alert, oriented X3, CN II-XII intact Psychiatric exam: Present: normal affect, normal mood Skin exam: Present: warm, dry, intact, normal color. Absent: rash Course Vital Signs 03/08/19 16:34 Temperature 98.8 F Pulse Rate 80 Respiratory 16 Rate Blood Pressure 115/75 O2 Sat by Pulse 98 Oximetry - Reevaluation(s) Reevaluation #1: 03/08/19 18:49 Medical record is reviewed Reevaluation #2: 03/08/19 18:49 Patient has adequate pain control Medical Decision Making - Medical Decision Making 48 male the ER for evaluation resents today for evaluation of facial swelling and pain. CT is negative for discrete abscess. No fever. Labwork is normal patient can be discharged home on antibiotics anti-inflammatories - Lab Data Result diagrams: 03/08/19 17:30 03/08/19 17:30 Lab Results 03/08/19 03/08/19 Range/Units 17:30 17:30 WBC 16.7 H (3.8-10.6) k/uL RBC 4.61 (4.30-5.90) m/uL Hgb 14.4 (13.0-17.5) gm/dL Hct 42.0 (39.0-53.0) % MCV 91.1 (80.0-100.0) fL MCH 31.2 (25.0-35.0) pg MCHC 34.2 (31.0-37.0) g/dL RDW 14.3 (11.5-15.5) % Plt Count 285 (150-450) k/uL Neutrophils % 72 % Lymphocytes % 17 % Monocytes % 7 % Eosinophils % 2 % Basophils % 1 % Neutrophils # 12.0 H (1.3-7.7) k/uL Lymphocytes # 2.8 (1.0-4.8) k/uL Monocytes # 1.2 H (0-1.0) k/uL Eosinophils # 0.3 (0-0.7) k/uL Basophils # 0.1 (0-0.2) k/uL Sodium 139 (137-145) mmol/L Potassium 4.0 (3.5-5.1) mmol/L Chloride 105 (98-107) mmol/L Carbon Dioxide 24 (22-30) mmol/L Anion Gap 10 mmol/L BUN 11 (9-20) mg/dL Creatinine 0.82 (0.66-1.25) mg/dL Est GFR (CKD-EPI)AfAm >90 (>60 ml/min/1.73 sqM) Est GFR (CKD-EPI)NonAf >90 (>60 ml/min/1.73 sqM) Glucose 104 H (74-99) mg/dL Calcium 10.0 (8.4-10.2) mg/dL Phosphorus 3.4 (2.5-4.5) mg/dL Magnesium 2.1 (1.6-2.3) mg/dL Total Bilirubin 1.1 (0.2-1.3) mg/dL AST 19 (17-59) U/L ALT 20 L (21-72) U/L Alkaline Phosphatase 85 (38-126) U/L Total Protein 7.1 (6.3-8.2) g/dL Albumin 4.4 (3.5-5.0) g/dL - EKG Data -: EKG Interpreted by Me (EKG shows sinus rhythm at 75, KY 90, QRS 80, QTC 408) - Radiology Data Radiology results: report reviewed (CT soft tissue neck and facial bones negative for abscess), image reviewed Disposition Clinical Impression: Dental abscess Disposition: HOME SELF-CARE Condition: Good Instructions (If sedation given, give patient instructions): Dental Abscess (ED) Prescriptions: Clindamycin HCl [Cleocin] 300 mg PO Q6HR #40 cap Is patient prescribed a controlled substance at d/c from ED?: No Referrals: Katlyn Díaz MD [Primary Care Provider] - 1-2 days
[2019-03-08] MEDS ORDERED: DEXAMETHASONE SOD PHOSPHATE 10 MG/ML 1 ML VIAL IV STA (17:07)
[2019-03-08] MEDS ORDERED: SODIUM CHLORIDE 0.9% 1,000 ML IV STA (17:07)
[2019-03-08] MEDS ORDERED: KETOROLAC 30 MG/ML 1 ML VIAL IVP STA (17:07)
[2019-03-08] MEDS ORDERED: CLINDAMYCIN 600 MG in DEXTROSE 5% IN WATER 50 ML IVPB STA ×2 (17:07)
[2019-03-08 17:41] LABS: Basophils # (A) 0.1 k/uL (0-0.2); Basophils % (A) 1 %; Eosinophils # (A) 0.3 k/uL (0-0.7); Eosinophils % (A) 2 %; HGB 14.4 gm/dL (13.0-17.5); Lymphocytes # (A) 2.8 k/uL (1.0-4.8); Lymphocytes % (A) 17 %; MCH 31.2 pg (25.0-35.0); MCHC 34.2 g/dL (31.0-37.0); MCV 91.1 fL (80.0-100.0); Mean Platelet Volume 6.8; Monocytes # (A) 1.2 k/uL (0-1.0); Monocytes % (A) 7 %; Neutrophils % (A) 72 %; Platelet Count 285 k/uL (150-450); RBC 4.61 m/uL (4.30-5.90); RDW 14.3 % (11.5-15.5); WBC 16.7 k/uL (3.8-10.6)
[2019-03-08 17:51] LABS: ALT 20 U/L (21-72); AST 19 U/L (17-59); African American GFR (CKD) >90 (>60 ml/min/1.73 sqM); Albumin 4.4 g/dL (3.5-5.0); Alkaline Phosphatase 85 U/L (38-126); Anion Gap 10 mmol/L; Blood Urea Nitrogen 11 mg/dL (9-20); Carbon Dioxide 24 mmol/L (22-30); Chloride 105 mmol/L (98-107); Glucose 104 mg/dL (74-99); Magnesium 2.1 mg/dL (1.6-2.3); Phosphorus 3.4 mg/dL (2.5-4.5); Sodium 139 mmol/L (137-145); Total Bilirubin 1.1 mg/dL (0.2-1.3); Total Protein 7.1 g/dL (6.3-8.2)
--- NOTE | 2019-03-08 18:14 | CT ---
EXAMINATION TYPE: CT soft tissue neck w con DATE OF EXAM: 03/08/2019 6:05 PM COMPARISON: HISTORY: Right side jaw swelling, Right eye vision changes CT DLP: 249.8 mGycm Automated exposure control for dose reduction was used. CONTRAST: CT scan of the neck is performed following with IV Contrast, patient injected with 100 mL of Isovue 3 00. Axial images are obtained, coronal and sagittal reformatted images are reviewed. FINDINGS: There is normal branching pattern of the great vessels on the aortic arch. Thyroid gland is symmetric . Epiglottis appears normal. Prevertebral soft tissues appear normal. Tongue appears normal. There is asymmetric enlargement of the left submandibular salivary gland compared to the right. Left parotid gland appears larger than the right. There are bilateral anterior triangle cervical lymph nodes. Thes e measure up to 1 cm. Posterior cervical lymph nodes are fairly normal. The tonsils are fairly symmet luca. Adenoids are not enlarged. There is asymmetric subcutaneous edema and soft tissue swelling anterior to the right maxilla. There is some mucosal asymmetric thickening right maxillary sinus. Cervical vertebra have mild straightening. There is degenerative mild disc space narrowing at C5-6 wi th spurring of the endplates. I see no pathologic fluid collection. IMPRESSION: There is some asymmetric enlargement of the left parotid and left submandibular salivary glands compared to the right. Nonspecific bilateral anterior triangle cervical lymph nodes. Asymmetric increased soft tissue swelling anterior to the right maxilla in the subcutaneous tissues. Mild right maxillary sinusitis.
--- NOTE | 2019-03-08 18:16 | CT ---
EXAMINATION TYPE: CT facial bones w con DATE OF EXAM: 03/08/2019 COMPARISON: None HISTORY: Right side jaw swelling, Right eye vision changes CT DLP: 249.8 mGycm Automated exposure control for dose reduction was used. CONTRAST: CT scan of the facial bones is performed with IV Contrast, patient injected with 100 mL of Isovue 300 . TECHNIQUE: CT scan of the sinuses is performed without contrast, axial images are obtained, coronal r eformatted images are also reviewed. FINDINGS: There is soft tissue swelling and subcutaneous edema anterior to the right maxilla. There i s mucosal thickening right maxillary sinus. There is mucosal mild thickening at the right ostiomeatal complex. The other paranasal sinuses are fairly well aerated. I see no focal bone destruction. Maxil la is intact. Zygomatic arches are intact. There is no evidence of orbital mass. There is no retro-or bital mass. IMPRESSION: Right-sided maxillary sinusitis. Right side maxillary soft tissue swelling.
[2019-03-08 19:11] VITALS: BP 127/87; PULSE 64; RESP 18; TEMP 98.2
== END 2019-03-08 19:12 | disposition home or self-care (01) ==
LOC: EC 16:21
DX: K04.7 Periapical abscess without sinus (principal); J02.9 Acute pharyngitis, unspecified; I20.9 Angina pectoris, unspecified; E78.5 Hyperlipidemia, unspecified; I10 Essential (primary) hypertension; I25.2 Old myocardial infarction; F17.200 Nicotine dependence, unspecified, uncomplicated; Z90.49 Acquired absence of other specified parts of digestive tract; Z95.5 Presence of coronary angioplasty implant and graft; Z98.890 Other specified postprocedural states; Z79.02 Long term (current) use of antithrombotics/antiplatelets; Z79.899 Other long term (current) drug therapy; Z88.0 Allergy status to penicillin
CPT/HCPCS: 36415; 80053; 83735; 84100; 85025; 87040; 70487; 70491; 99284; 96365; 96375 ×2; J1100; J1885; Q9967

== ENCOUNTER 2019-03-09 09:11 | Emergency (ER) | payer BC ==
[2019-03-09 09:28] VITALS: BP 116/72; PULSE 77; RESP 18; TEMP 97.7
[2019-03-09] MEDS ORDERED: KETOROLAC 30 MG/ML 1 ML VIAL IVP STA (10:12)
[2019-03-09] MEDS ORDERED: ONDANSETRON 4 MG/2 ML VIAL IVP STA (10:12)
[2019-03-09] MEDS ORDERED: SODIUM CHLORIDE 0.9% 1,000 ML IV STA (10:12)
--- NOTE | 2019-03-09 10:14 | ED ---
General Adult HPI - General Chief complaint: Abdominal Pain Stated complaint: Kidney pain, vomiting Time Seen by Provider: 03/09/19 09:52 Source: patient, RN notes reviewed Mode of arrival: wheelchair Limitations: no limitations - History of Present Illness Initial comments: 48-year-old male with a past medical history of chest pain, CT, hyperlipidemia, hypertension presents to the emergency department for a chief complaint of right flank and lower back pain. States has been ongoing for about 2 weeks. However last night this worsened and is not letting up this time. States it radiates around into his right hip. He states movement seems to make this worse including standing. States he feels better laying on his right side. Denies any pain with movement of the right hip. Denies fevers or chills. Denies dysuria. Denies noticing any blood in the urine. Denies any history of kidney stones.Patient has no other complaints at this time including shortness of breath, chest pain, abdominal pain, nausea or vomiting, headache, or visual baker ges. - Related Data Home Medications Medication Instructions Recorded Confirmed Clopidogrel [Plavix] 75 mg PO DAILY 06/15/18 03/08/19 Lisinopril [Zestril] 10 mg PO DAILY 06/15/18 03/08/19 Atorvastatin [Lipitor] 80 mg PO DAILY 03/08/19 03/08/19 Azithromycin [Zithromax] 500 mg PO DAILY 03/08/19 03/08/19 Ibuprofen [Motrin] 800 mg PO TID PRN 03/08/19 03/08/19 Previous Rx's Medication Instructions Recorded Aspirin 81 mg PO DAILY #30 chew 10/12/17 Clindamycin HCl [Cleocin] 300 mg PO Q6HR #40 cap 03/08/19 Allergies Allergy/AdvReac Type Severity Reaction Status Date / Time amoxicillin Allergy Rash/Hives Verified 03/09/19 09:26 Review of Systems ROS Statement: Those systems with pertinent positive or pertinent negative responses have been documented in the HPI. ROS Other: All systems not noted in ROS Statement are negative. Past Medical History Past Medical History: Chest Pain / Angina, Hyperlipidemia, Hypertension, Myocardial Infarction (CT) Additional Past Medical History / Comment(s): 'silent heart attack', bruises easily, constipation, Last Myocardial Infarction Date:: 10/11/2017 History of Any Multi-Drug Resistant Organisms: None Reported Past Surgical History: Appendectomy, Heart Catheterization With Stent, Hernia Repair, Tonsillectomy Additional Past Surgical History / Comment(s): one cardiac stent, cyst removed from back of left leg, Past Anesthesia/Blood Transfusion Reactions: No Reported Reaction Date of Last Stent Placement:: 10/11/17 Past Psychological History: No Psychological Hx Reported Smoking Status: Current every day smoker - Past Family History Father Family Medical History: Deep Vein Thrombosis (DVT), Myocardial Infarction (CT) Additional Family Medical History / Comment(s): CABG Mother Family Medical History: No Reported History General Exam Limitations: no limitations General appearance: alert, in no apparent distress Head exam: Present: atraumatic, normocephalic, normal inspection Eye exam: Present: normal appearance, PERRL, EOMI. Absent: scleral icterus, conjunctival injection, periorbital swelling ENT exam: Present: normal exam, mucous membranes moist Neck exam: Present: normal inspection, full ROM. Absent: tenderness, meningismus, lymphadenopathy Respiratory exam: Present: normal lung sounds bilaterally. Absent: respiratory distress, wheezes, rales, rhonchi, stridor Cardiovascular Exam: Present: regular rate, normal rhythm, normal heart sounds. Absent: systolic murmur, diastolic murmur, rubs, gallop, clicks GI/Abdominal exam: Present: soft, normal bowel sounds. Absent: distended, tenderness, guarding, rebound, rigid Extremities exam: Present: full ROM (Full range motion of the right hip without pain.) Back exam: Present: CVA tenderness (R). Absent: CVA tenderness (L) Course Vital Signs 03/09/19 09:26 Temperature 97.7 F Pulse Rate 77 Respiratory 18 Rate Blood Pressure 116/72 O2 Sat by Pulse 98 Oximetry Medical Decision Making - Medical Decision Making 48-year-old male with a past medical history of chest pain, CT, hyperlipidemia, hypertension presents to the emergency department for chief complaint of right flank pain and lower right-sided back pain. Patient states that this has been ongoing for several weeks. States that it feels better when he lies on his right side and worse with walking. On exam patient does have some right CVA tenderness. No pain with passive range of motion of the right hip. Neurovascular status intact in the right lower extremity with a DP pulses 2+. No abdominal tenderness. Exam is generally unremarkable, patient does not seem distressed. CBC does reveal a white count of 19.2 however this is likely secondary to dental abscess. Patient started antibiotics about 24 hours ago and had a CT of the soft tissue neck and face yesterday. Patient does have poor dentition noted, at this time no abscess but does have some mild right-sided facial swelling. CMP is unremarkable. Urine negative for infection. CT abdomen and pelvis shows diverticulosis without acute diverticulitis. Patient given pain medications, isn't better at this time. At this time I do not see an emergent cause for right-sided back pain could be muscular skeletal in nature, no changes in urination or bowel function. Patient will follow up with his primary care provider for this however he will return here for any worsening symptoms that she does agree to do. - Lab Data Result diagrams: 03/09/19 10:20 03/09/19 10:20 Lab Results 03/09/19 03/09/19 03/09/19 Range/Units 10:20 10:20 10:20 WBC 19.2 H (3.8-10.6) k/uL RBC 4.37 (4.30-5.90) m/uL Hgb 13.7 (13.0-17.5) gm/dL Hct 39.6 (39.0-53.0) % MCV 90.5 (80.0-100.0) fL MCH 31.4 (25.0-35.0) pg MCHC 34.7 (31.0-37.0) g/dL RDW 15.1 (11.5-15.5) % Plt Count 295 (150-450) k/uL Neutrophils % 82 % Lymphocytes % 10 % Monocytes % 6 % Eosinophils % 0 % Basophils % 0 % Neutrophils # 15.7 H (1.3-7.7) k/uL Lymphocytes # 1.9 (1.0-4.8) k/uL Monocytes # 1.2 H (0-1.0) k/uL Eosinophils # 0.0 (0-0.7) k/uL Basophils # 0.1 (0-0.2) k/uL Sodium 141 (137-145) mmol/L Potassium 4.5 (3.5-5.1) mmol/L Chloride 106 (98-107) mmol/L Carbon Dioxide 23 (22-30) mmol/L Anion Gap 12 mmol/L BUN 18 (9-20) mg/dL Creatinine 0.94 (0.66-1.25) mg/dL Est GFR (CKD-EPI)AfAm >90 (>60 ml/min/1.73 sqM) Est GFR (CKD-EPI)NonAf >90 (>60 ml/min/1.73 sqM) Glucose 109 H (74-99) mg/dL Calcium 10.5 H (8.4-10.2) mg/dL Total Bilirubin 0.8 (0.2-1.3) mg/dL AST 21 (17-59) U/L ALT 26 (21-72) U/L Alkaline Phosphatase 86 (38-126) U/L Total Protein 7.0 (6.3-8.2) g/dL Albumin 4.2 (3.5-5.0) g/dL Amylase 48 (30-110) U/L Lipase 49 (23-300) U/L Urine Color Yellow Urine Appearance Cloudy (Clear) Urine pH 6.0 (5.0-8.0) Ur Specific [place] 1.038 H (1.001-1.035) Urine Protein 1+ H (Negative) Urine Glucose (UA) 3+ H (Negative) Urine Ketones Trace H (Negative) Urine Blood Negative (Negative) Urine Nitrite Negative (Negative) Urine Bilirubin Negative (Negative) Urine Urobilinogen 4.0 (<2.0) mg/dL Ur Leukocyte Esterase Negative (Negative) Urine RBC 9 H (0-5) /hpf Urine WBC 3 (0-5) /hpf Hyaline Casts 10 H (0-2) /lpf Urine Mucus Many H (None) /hpf Ur Yeast w Hyphae Rare (None) /hpf Disposition Clinical Impression: Right flank pain Disposition: HOME SELF-CARE Condition: Good Instructions (If sedation given, give patient instructions): Flank Pain (ED) Additional Instructions: Please follow up with primary care in 1-2 days. Return here to the emergency department if you have any worsening symptoms. Is patient prescribed a controlled substance at d/c from ED?: No Referrals: Katlyn Díaz MD [Primary Care Provider] - 1-2 days Time of Disposition: 11:42
[2019-03-09 10:32] LABS: Basophils # (A) 0.1 k/uL (0-0.2); Basophils % (A) 0 %; Eosinophils % (A) 0 %; HCT 39.6 % (39.0-53.0); HGB 13.7 gm/dL (13.0-17.5); Lymphocytes # (A) 1.9 k/uL (1.0-4.8); Lymphocytes % (A) 10 %; MCH 31.4 pg (25.0-35.0); MCHC 34.7 g/dL (31.0-37.0); MCV 90.5 fL (80.0-100.0); Mean Platelet Volume 7.7; Monocytes # (A) 1.2 k/uL (0-1.0); Monocytes % (A) 6 %; Neutrophils # (A) 15.7 k/uL (1.3-7.7); Neutrophils % (A) 82 %; Platelet Count 295 k/uL (150-450); RBC 4.37 m/uL (4.30-5.90); RDW 15.1 % (11.5-15.5); WBC 19.2 k/uL (3.8-10.6)
[2019-03-09 10:40] LABS: ALT 26 U/L (21-72); AST 21 U/L (17-59); African American GFR (CKD) >90 (>60 ml/min/1.73 sqM); Albumin 4.2 g/dL (3.5-5.0); Alkaline Phosphatase 86 U/L (38-126); Amylase 48 U/L (30-110); Anion Gap 12 mmol/L; Blood Urea Nitrogen 18 mg/dL (9-20); Calcium 10.5 mg/dL (8.4-10.2); Carbon Dioxide 23 mmol/L (22-30); Chloride 106 mmol/L (98-107); Glucose 109 mg/dL (74-99); Lipase 49 U/L (23-300); Potassium 4.5 mmol/L (3.5-5.1); Sodium 141 mmol/L (137-145); Total Bilirubin 0.8 mg/dL (0.2-1.3)
[2019-03-09 10:56] LABS: Appearance,Urine Cloudy (Clear); Bilirubin,Urine Negative (Negative); Blood,Urine Negative (Negative); Color,Urine Yellow; Glucose,Urine (UA) 3+ (Negative); Hyaline Casts,Urine 10 /lpf (0-2); Hyphae Yeast, Urine Rare /hpf; Ketones,Urine Trace (Negative); Leukocyte Esterase,Urine Negative (Negative); Mucus,Urine Many /hpf; Nitrite,Urine Negative (Negative); Protein,Urine 1+ (Negative); RBC,Urine 9 /hpf (0-5); Specific Gravity,Urine 1.038 (1.001-1.035); WBC,Urine 3 /hpf (0-5)
--- NOTE | 2019-03-09 11:03 | CT ---
EXAMINATION TYPE: CT abdomen pelvis wo con DATE OF EXAM: 03/09/2019 COMPARISON: None INDICATION: Right flank pain. DLP: 446.4 mGycm, Automated exposure control for dose reduction was used. CONTRAST: 0 mL of Isovue 300. Study performed without Oral Contrast TECHNIQUE: Axial images were obtained from above the diaphragm to the pubic rami in the axial plane a t 5 mm thick sections. Reconstructed images are reviewed on the computer in the coronal plane. FINDINGS: Limited CT sections are obtained the lung bases. The lung bases are clear. CT ABDOMEN: Liver: Normal Spleen: Normal Pancreas: Normal Adrenal glands: The adrenal glands are normal. Gallbladder: Normal Kidneys: No masses are evident. No hydronephrosis is present. No cysts are present. Delayed images were obtained through the kidneys, which remain unremarkable. Aorta: Vascular calcification is within the aorta. Inferior vena cava: Normal. CT PELVIS: Loops of bowel within the abdomen and pelvis are normal. Some scattered diverticuli are within the sigmoid colon. No acute diverticulitis is evident There are loops of bowel which are incompletely di stended or lack oral contrast limiting their evaluation. Appendix: Not identified. No suspicious inflammatory changes or dilated tubular structures are eviden t. Correlate with the patient's surgical history. Couple of small nonspecific lymph nodes in the righ t lower quadrant. Urinary bladder: Contrast is within the decompressed urinary bladder. Genitourinary structures: Prostate is mildly prominent. Osseous structures: No suspicious lytic or sclerotic lesions. IMPRESSIONS: 1. Diverticulosis without acute diverticulitis.
[2019-03-09] MEDS ORDERED: MORPHINE SULFATE 4 MG/ML SYRINGE IVP STA (11:15)
== END 2019-03-09 12:14 | disposition home or self-care (01) ==
LOC: EC 09:11
DX: K57.90 Diverticulosis of intestine, part unspecified, without perforation or abscess without bleeding (principal); M54.5 Low back pain; R22.0 Localized swelling, mass and lump, head; D72.829 Elevated white blood cell count, unspecified; E78.5 Hyperlipidemia, unspecified; I10 Essential (primary) hypertension; I25.2 Old myocardial infarction; F17.200 Nicotine dependence, unspecified, uncomplicated; Z90.49 Acquired absence of other specified parts of digestive tract; Z95.5 Presence of coronary angioplasty implant and graft; Z79.02 Long term (current) use of antithrombotics/antiplatelets; Z79.899 Other long term (current) drug therapy; Z88.0 Allergy status to penicillin
CPT/HCPCS: 99284; 96374; 96375 ×2; 96361; 36415; 80053; 82150; 83690; 85025; 81001; 74176; J2270; J2405; J1885

== ENCOUNTER 2019-03-16 09:03 | Emergency (ER) | payer BC ==
[2019-03-16 09:07] VITALS: BP 124/73; PULSE 80; RESP 18; TEMP 97.8
[2019-03-16] MEDS ORDERED: methylPREDNISolone SOD SUCCI 125 MG/2 ML VIAL IM ONE (09:22)
[2019-03-16] MEDS ORDERED: HYDROcodone/APAP 5-325MG 1 EACH TAB PO STA (09:22)
[2019-03-16] MEDS ORDERED: ORPHENADRINE 30 MG/ML 2 ML VIAL IM STA (09:22)
[2019-03-16] MEDS ORDERED: KETOROLAC 60 MG/2 ML VIAL IM STA (09:22)
--- NOTE | 2019-03-16 09:30 | ED ---
Extremity Problem HPI - General Chief complaint: Extremity Problem,Nontraumatic Stated complaint: Hip pain Time Seen by Provider: 03/16/19 09:11 Source: patient, RN notes reviewed, old records reviewed Mode of arrival: ambulatory Limitations: no limitations - History of Present Illness Initial comments: Patient is a 48-year-old male with chief complaint of right hip pain for one week. He reports it radiates on his leg. Patient reports he was here last week for this incomplete, and was evaluated for possible kidney stone. At that time he had a CT of his abdomen and pelvis which was negative for any acute process. All test were within normal limits. Patient reports he called his PCP, they had repeat blood work. Patient states that he has had no fall or trauma to his lower back or hip. Patient denies any saddle anesthesia. - Related Data Home Medications Medication Instructions Recorded Confirmed Clopidogrel [Plavix] 75 mg PO DAILY 06/15/18 03/16/19 Lisinopril [Zestril] 10 mg PO DAILY 06/15/18 03/16/19 Atorvastatin [Lipitor] 80 mg PO DAILY 03/08/19 03/16/19 Ibuprofen [Motrin] 800 mg PO TID PRN 03/08/19 03/16/19 Previous Rx's Medication Instructions Recorded Aspirin 81 mg PO DAILY #30 chew 10/12/17 Cyclobenzaprine [Flexeril] 10 mg PO TID #12 tab 03/16/19 Dexamethasone 0.75 mg PO DAILY #12 tab 03/16/19 HYDROcodone/APAP 5-325MG [[place] 1 tab PO Q6HR PRN #10 tab 03/16/19 5-325] Allergies Allergy/AdvReac Type Severity Reaction Status Date / Time amoxicillin Allergy Rash/Hives Verified 03/16/19 09:31 Review of Systems ROS Statement: Those systems with pertinent positive or pertinent negative responses have been documented in the HPI. ROS Other: All systems not noted in ROS Statement are negative. Past Medical History Past Medical History: Chest Pain / Angina, Hyperlipidemia, Hypertension, Myocardial Infarction ([place]) Additional Past Medical History / Comment(s): 'silent heart attack', bruises easily, constipation, Last Myocardial Infarction Date:: 10/11/2017 History of Any Multi-Drug Resistant Organisms: None Reported Past Surgical History: Appendectomy, Heart Catheterization With Stent, Hernia Repair, Tonsillectomy Additional Past Surgical History / Comment(s): one cardiac stent, cyst removed from back of left leg, Past Anesthesia/Blood Transfusion Reactions: No Reported Reaction Date of Last Stent Placement:: 10/11/17 Past Psychological History: No Psychological Hx Reported Smoking Status: Current every day smoker Past Alcohol Use History: Occasional Past Drug Use History: Marijuana - Past Family History Father Family Medical History: Deep Vein Thrombosis (DVT), Myocardial Infarction ([place]) Additional Family Medical History / Comment(s): CABG Mother Family Medical History: No Reported History General Exam - General Exam Comments Initial Comments: This Patient is a 48-year-old male. Alert and oriented 3. No distress. Limitations: no limitations General appearance: alert, in no apparent distress Head exam: Present: atraumatic, normocephalic, normal inspection Eye exam: Present: normal appearance, PERRL, EOMI. Absent: scleral icterus, conjunctival injection, periorbital swelling ENT exam: Present: normal exam, mucous membranes moist Neck exam: Present: normal inspection. Absent: tenderness, meningismus, lymphadenopathy Respiratory exam: Present: normal lung sounds bilaterally. Absent: respiratory distress, wheezes, rales, rhonchi, stridor Cardiovascular Exam: Present: regular rate, normal rhythm, normal heart sounds. Absent: systolic murmur, diastolic murmur, rubs, gallop, clicks GI/Abdominal exam: Present: soft, normal bowel sounds. Absent: distended, tenderness, guarding, rebound, rigid Extremities exam: Present: normal inspection, full ROM, normal capillary refill. Absent: tenderness, pedal edema, joint swelling, calf tenderness Right Hip exam: Present: normal inspection, tenderness (Patient is has tenderness over right sciatic notch.) Knee exam: Present: normal inspection, full ROM Lower Leg exam: Present: normal inspection, full ROM Ankle exam: Present: normal inspection, full ROM Foot/Toe exam: Present: normal inspection, full ROM Neurovascular tendon exam: Present: no vascular compromise Gait: observed and normal Back exam: Present: normal inspection Neurological exam: Present: alert, oriented X3, CN II-XII intact Psychiatric exam: Present: normal affect, normal mood Skin exam: Present: warm, dry, intact, normal color. Absent: rash Course Vital Signs 03/16/19 09:04 Temperature 97.8 F Pulse Rate 80 Respiratory 18 Rate Blood Pressure 124/73 O2 Sat by Pulse 96 Oximetry Medical Decision Making - Medical Decision Making 48-year-old male presents emergency Department today with complaints of right hip pain radiating down the leg. At this time Patient is positive for sciatic nerve tenderness. and given IM Toradol's for Norflex and slight Medrol given by mouth Norvasc ago. Patient was evaluated one week ago had a CT of the abdomen and pelvis. That time there is no sign of any acute osseous lesions. Discussed no further imaging needs today. Patient is likely suffering from some piriformis syndrome. Patient will be discharged at this time with prescription for integument her medicine. Disposition Clinical Impression: Right sciatic nerve pain Disposition: HOME SELF-CARE Condition: Good Instructions (If sedation given, give patient instructions): Sciatica (ED) Additional Instructions: Patient advised him close follow-up with primary care physician. Recommend following with rn orthopedic as well. Take medications as prescribed. Return to emergency department if any alarming signs occur. Prescriptions: Dexamethasone 0.75 mg PO DAILY #12 tab Cyclobenzaprine [Flexeril] 10 mg PO TID #12 tab HYDROcodone/APAP 5-325MG [[place] 5-325] 1 tab PO Q6HR PRN #10 tab PRN Reason: Pain Is patient prescribed a controlled substance at d/c from ED?: Yes When asked, does pt state using other controlled substances?: No If prescribed controlled substance>3 days was MAPS reviewed?: Prescribed <3 Days If opioid is for acute pain is fill amount 7 days or less?: Yes If Rx opioid, was Start Talking consent form obtained?: Yes Referrals: Katlyn Díaz MD [Primary Care Provider] - 1-2 days Time of Disposition: 10:18
== END 2019-03-16 10:31 | disposition home or self-care (01) ==
LOC: EC 09:03
DX: M54.31 Sciatica, right side (principal); F17.200 Nicotine dependence, unspecified, uncomplicated; E78.5 Hyperlipidemia, unspecified; I20.9 Angina pectoris, unspecified; I10 Essential (primary) hypertension; I25.2 Old myocardial infarction; Z79.02 Long term (current) use of antithrombotics/antiplatelets; Z79.899 Other long term (current) drug therapy; Z88.0 Allergy status to penicillin; Z95.5 Presence of coronary angioplasty implant and graft
CPT/HCPCS: 99283; 96372; J2360; J2930; J1885

== ENCOUNTER 2019-06-08 06:04 | Inpatient (IN) | payer BC ==
[2019-06-08] MEDS ORDERED: ASPIRIN 81 MG PO STA (06:23)
[2019-06-08] MEDS ORDERED: MORPHINE SULFATE 4 MG/ML SYRINGE IV STA (06:23)
[2019-06-08] MEDS ORDERED: SODIUM CHLORIDE 0.9% 500 ML 500 ML IV STA (06:23)
--- NOTE | 2019-06-08 06:25 | ED ---
Chest Pain HPI - General Chief Complaint: Chest Pain Stated Complaint: chest pain Time Seen by Provider: 06/08/19 06:14 Source: patient, family Mode of arrival: ambulatory Limitations: no limitations - History of Present Illness Initial Comments: This patient is a 49-year-old man who presents to be evaluated for chest pain that started when he is going to work last night. Patient states that it is in the epigastric area. The pain is aching and it does seem to get better and worse. He also has had some nausea and vomiting, stating that he has thrown up over a dozen times. No blood or coffee-ground emesis. MD Complaint: chest pain Onset/Timin -: hour(s) Onset: during rest Pain Location: substernal Pain Radiation: none Severity: severe Quality: sharp Consistency: intermittent Improves With: nothing Worsens With: nothing Anginal Symptoms: nausea, vomiting Treatments Prior to Arrival: none - Related Data Home Medications Medication Instructions Recorded Confirmed Lisinopril [Zestril] 10 mg PO HS 06/15/18 06/08/19 Atorvastatin [Lipitor] 80 mg PO HS 03/08/19 06/08/19 Aspirin 81 mg PO HS 06/08/19 06/08/19 Ibuprofen [Advil] 600 mg PO TID PRN 06/08/19 06/08/19 Allergies Allergy/AdvReac Type Severity Reaction Status Date / Time amoxicillin Allergy Rash/Hives Verified 06/08/19 08:08 Review of Systems ROS Statement: Those systems with pertinent positive or pertinent negative responses have been documented in the HPI. ROS Other: All systems not noted in ROS Statement are negative. Constitutional: Denies: fever, chills, weakness Respiratory: Denies: cough, dyspnea Cardiovascular: Reports: chest pain. Denies: palpitations, edema, syncope Gastrointestinal: Reports: nausea, vomiting. Denies: abdominal pain, diarrhea Genitourinary: Denies: urgency, dysuria, hematuria Musculoskeletal: Denies: back pain Skin: Denies: rash Neurological: Denies: headache, weakness, numbness EKG Findings - EKG Results: EKG: interpreted by ZULEYMA, sinus rhythm (Rate 61 bpm), normal axis, normal QRS, normal ST/T Past Medical History Past Medical History: Chest Pain / Angina, Hyperlipidemia, Hypertension, Myocardial Infarction ([place]) Additional Past Medical History / Comment(s): 'silent heart attack', bruises easily, constipation, Last Myocardial Infarction Date:: 10/11/2017 History of Any Multi-Drug Resistant Organisms: None Reported Past Surgical History: Appendectomy, Heart Catheterization With Stent, Hernia Repair, Tonsillectomy Additional Past Surgical History / Comment(s): one cardiac stent, cyst removed from back of left leg, Past Anesthesia/Blood Transfusion Reactions: No Reported Reaction Date of Last Stent Placement:: 10/11/17 Past Psychological History: No Psychological Hx Reported Smoking Status: Current every day smoker Past Alcohol Use History: Occasional Past Drug Use History: Marijuana - Past Family History Father Family Medical History: Deep Vein Thrombosis (DVT), Myocardial Infarction (SD) Additional Family Medical History / Comment(s): CABG Mother Family Medical History: No Reported History General Exam Limitations: no limitations General appearance: alert, in no apparent distress Head exam: Present: atraumatic, normocephalic Eye exam: Present: normal appearance. Absent: scleral icterus, conjunctival injection ENT exam: Present: normal oropharynx Neck exam: Present: normal inspection Respiratory exam: Present: normal lung sounds bilaterally. Absent: respiratory distress, wheezes, rales, rhonchi, stridor Cardiovascular Exam: Present: regular rate, normal rhythm, normal heart sounds. Absent: systolic murmur, diastolic murmur, rubs, gallop GI/Abdominal exam: Present: soft. Absent: distended, tenderness, guarding, rebound, mass Extremities exam: Present: normal inspection, normal capillary refill. Absent: pedal edema, calf tenderness Back exam: Present: normal inspection. Absent: CVA tenderness (R), CVA tenderness (L) Skin exam: Present: warm, dry, intact, normal color. Absent: rash Course Vital Signs 06/08/19 06/08/19 06/08/19 06:05 07:00 07:30 Temperature 98 F Pulse Rate 62 45 L 44 L Respiratory 20 15 18 Rate Blood Pressure 157/42 146/84 161/86 O2 Sat by Pulse 99 100 99 Oximetry 06/08/19 08:00 Temperature Pulse Rate 43 L Respiratory 17 Rate Blood Pressure 143/79 O2 Sat by Pulse 99 Oximetry Disposition Clinical Impression: Epigastric abdominal pain Disposition: ADMITTED IP TO THIS HOSP Condition: Fair Is patient prescribed a controlled substance at d/c from ED?: No
[2019-06-08 06:32] LABS: HGB 16.4 gm/dL (13.0-17.5); MCH 33.7 pg (25.0-35.0); MCV 96.5 fL (80.0-100.0); Mean Platelet Volume 6.4; Neutrophils % (A) 61 %; Platelet Count 312 k/uL (150-450); RBC 4.87 m/uL (4.30-5.90); RDW 12.8 % (11.5-15.5); WBC 10.3 k/uL (3.8-10.6)
[2019-06-08 06:33] LABS: Basophils # (A) 0.2 k/uL (0-0.2); Basophils % (A) 2 %; Eosinophils # (A) 0.3 k/uL (0-0.7); Eosinophils % (A) 3 %; Lymphocytes # (A) 2.6 k/uL (1.0-4.8); Lymphocytes % (A) 26 %; Monocytes # (A) 0.7 k/uL (0-1.0); Monocytes % (A) 7 %; Neutrophils # (A) 6.3 k/uL (1.3-7.7)
[2019-06-08 06:43] LABS: ALT 27 U/L (21-72); AST 24 U/L (17-59); African American GFR (CKD) >90 (>60 ml/min/1.73 sqM); Albumin 4.3 g/dL (3.5-5.0); Alkaline Phosphatase 98 U/L (38-126); Amylase 52 U/L (30-110); Anion Gap 8 mmol/L; Blood Urea Nitrogen 10 mg/dL (9-20); Carbon Dioxide 24 mmol/L (22-30); Chloride 105 mmol/L (98-107); Glucose 123 mg/dL (74-99); Magnesium 1.9 mg/dL (1.6-2.3); Potassium 4.3 mmol/L (3.5-5.1); Sodium 137 mmol/L (137-145); Total Bilirubin 1.1 mg/dL (0.2-1.3); Total Protein 6.9 g/dL (6.3-8.2)
[2019-06-08 06:45] LABS: D-Dimer 0.35 mg/L FEU (<0.60); INR 0.9 (<1.2); Partial Thromboplastin Time 23.9 sec (22.0-30.0); Prothrombin Time 9.9 sec (9.0-12.0)
[2019-06-08] MEDS ORDERED: NITROGLYCERIN SL TABS 0.4 MG TAB SUBLINGUAL PRN (07:01)
--- NOTE | 2019-06-08 07:06 | XR ---
EXAMINATION TYPE: XR chest 2V DATE OF EXAM: 06/08/2019 COMPARISON: Chest x-ray February 02, 2018. HISTORY: Chest pain for one day. TECHNIQUE: Frontal and lateral views of the chest are obtained. FINDINGS: Overlying EKG leads are seen. There is no focal air space opacity, pleural effusion, or pne umothorax seen. The cardiac silhouette size is within normal limits. The osseous structures are in tact. IMPRESSION: No acute cardiopulmonary process. No significant change from prior.
[2019-06-08] MEDS ORDERED: MORPHINE SULFATE 4 MG/ML SYRINGE IVP STA (07:28)
[2019-06-08] MEDS: SODIUM CHLORIDE 0.9% 1,000 ML IV SCH (08:03)
[2019-06-08 08:32] VITALS: RESP 18
[2019-06-08 08:56] VITALS: BMI 25.1
[2019-06-08] MEDS ORDERED: INFLUENZA VACCINE (6 MOS+) 60 MCG/0.5 ML SYRINGE IM ONE (08:58)
--- NOTE | 2019-06-08 09:49 | US ---
EXAMINATION TYPE: US gallbladder DATE OF EXAM: 06/08/2019 COMPARISON: CT from March 09, 2019 CLINICAL HISTORY: cp, nausea, vomit. EXAM MEASUREMENTS: Liver Length: 13.3 cm Gallbladder Wall: 0.3 cm CBD: 0.2 cm Right Kidney: 10.2 x 4.2 x 4.5 cm Extensive overlying bowel gas. Pancreas: Partially obscured by bowel gas Liver: portions visualized wnl, somewhat obscured by bowel gas Gallbladder: wnl Evidence for sonographic Rivera's sign: no CBD: wnl Right Kidney: Inferior pole obscured by overlying bowel gas IMPRESSION: Suboptimal study without shadowing mobile gallstones or ultrasound evidence for acute cho lecystitis
[2019-06-08] MEDS ORDERED: MORPHINE SULFATE 2 MG/ML SYRINGE IVP PRN ×2 (12:12→13:21)
--- NOTE | 2019-06-08 13:00 | ECHOF ---
Referral Reason:cp MEASUREMENTS -------- HEIGHT: 175.3 cm WEIGHT: 77.1 kg BP: 153/85 RVIDd: 3.1 cm (< 3.3) IVSd: 1.2 cm (0.6 - 1.1) LVIDd: 4.7 cm (3.9 - 5.3) LVPWd: 1.1 cm (0.6 - 1.1) IVSs: 1.7 cm LVIDs: 2.9 cm LVPWs: 1.7 cm LA Diam: 3.5 cm (2.7 - 3.8) LAESV Index (A-L): 28.22 ml/m Ao Diam: 3.0 cm (2.0 - 3.7) AV Cusp: 2.0 cm (1.5 - 2.6) MV EXCURSION: 21.150 mm (> 18.000) MV EF SLOPE: 139 mm/s (70 - 150) EPSS: 0.6 cm MV E Shakir: 1.03 m/s MV DecT: 261 ms MV A Shakir: 0.78 m/s MV E/A Ratio: 1.32 RAP: 5.00 mmHg RVSP: 22.03 mmHg TAPSE: 25.68 mm FINDINGS -------- Sinus rhythm. This was a technically good study. The left ventricular size is normal. There is borderline concentric left ventricular hypertrophy. Overall left ventricular systolic function is normal with, an EF between 60 - 65 %. The diastolic filling pattern is normal for the age of the patient 11.21. The right ventricle is normal in size. Normal LA size by volume 22+/-6 ml/m2. The right atrium is normal in size. Interatrial and interventricular septum intact. The aortic valve is trileaflet and appears structurally normal. The mitral valve is normal. Mild tricuspid regurgitation present. Right ventricular systolic pressure is normal at < 35 mmHg. There is no pulmonic regurgitation present. The aortic root size is normal. Normal inferior vena cava with normal inspiratory collapse consistent with estimated right atrial pre ssure of 5 mmHg. There is no pericardial effusion. CONCLUSIONS -------- 1. Sinus rhythm. 2. This was a technically good study. 3. The left ventricular size is normal. 4. There is borderline concentric left ventricular hypertrophy. 5. Overall left ventricular systolic function is normal with, an EF between 60 - 65 %. 6. The diastolic filling pattern is normal for the age of the patient 11.21 7. The right ventricle is normal in size. 8. Normal LA size by volume 22+/-6 ml/m2. 9. The right atrium is normal in size. 10. Interatrial and interventricular septum intact. 11. The aortic valve is trileaflet and appears structurally normal. 12. The mitral valve is normal. 13. Mild tricuspid regurgitation present. 14. Right ventricular systolic pressure is normal at < 35 mmHg. 15. There is no pulmonic regurgitation present. 16. The aortic root size is normal. 17. Normal inferior vena cava with normal inspiratory collapse consistent with estimated right atrial pressure of 5 mmHg. 18. There is no pericardial effusion. HOURLY ASSOCIATE: Julia Garcia RDCS
--- NOTE | 2019-06-08 13:19 | P.HPIM ---
History of Present Illness This is a pleasant 49 years old male with past medical history of coronary artery disease status post stent placement, hyperlipidemia, hypertension. Patient presents with moderate to severe epigastric abdominal pain which started yesterday, the pain is about 9/10 in severity coming down with morphine 2/10, felt like pressure associated with recurrent vomiting, patient vomited about 12 times with no blood, mainly fluid. He did not have bowel movement for the last 24 hour, he is not passing gases. His last bowel movement was yesterday which was regular. No chest pain or dyspnea. He has some mild dry cough. Vitas looks stable except for mild symptomatic bradycardia. Labs including CBC, BMP, LFTs are unremarkable. Serial troponins are negative. D-dimer is within normal limits at 0.35. Lipase is normal.chest x-ray: No acute pulmonary process. EKG: Normal sinus rhythm at [address]-T changes. Gall bladder ultrasound showing gallbladder normal, no evidence of acute cholecystitis by ultrasound on admission patient was given 500 mL of normal saline bolus, and started on pain medication with morphine. Review of Systems CONSTITUTIONAL: No fever, no malaise, no fatigue. HEENT: No recent visual problems or hearing problems. Denied any sore throat. CARDIOVASCULAR: No orthopnea, PND, no palpitations, no syncope. PULMONARY: No shortness of breath, no cough, no hemoptysis. GASTROINTESTINAL: No diarrhea, Normoactive bowel sounds. NEUROLOGICAL: No headaches, no weakness, no numbness. HEMATOLOGICAL: Denies any bleeding or petechiae. GENITOURINARY: Denies any burning micturition, frequency, or urgency. MUSCULOSKELETAL/RHEUMATOLOGICAL: Denies any joint pain, swelling, or any muscle pain. ENDOCRINE: Denies any polyuria or polydipsia. Past Medical History Past Medical History: Coronary Artery Disease (CAD), Chest Pain / Angina, Hyperlipidemia, Hypertension, Myocardial Infarction ([place]) Additional Past Medical History / Comment(s): Irregular heart beat at times "fluttering" Last Myocardial Infarction Date:: 10/11/2017 History of Any Multi-Drug Resistant Organisms: None Reported Past Surgical History: Appendectomy, Heart Catheterization With Stent, Hernia Repair, Tonsillectomy Additional Past Surgical History / Comment(s): PCI with one stent, R inguinal hernia repair, cyst removed from back of L leg, removal of impacted cerumen R ear. Past Anesthesia/Blood Transfusion Reactions: No Reported Reaction Date of Last Stent Placement:: 10/11/17 Smoking Status: Current every day smoker - Past Family History Father Family Medical History: Deep Vein Thrombosis (DVT), Myocardial Infarction ([place]) Additional Family Medical History / Comment(s): Father had a [place] around age 55 yrs. He had CABG Mother Family Medical History: No Reported History Additional Family Medical History / Comment(s): Mother is healthy Medications and Allergies Home Medications Medication Instructions Recorded Confirmed Type Lisinopril [Zestril] 10 mg PO HS 06/15/18 06/08/19 History Atorvastatin [Lipitor] 80 mg PO HS 03/08/19 06/08/19 History Aspirin 81 mg PO HS 06/08/19 06/08/19 History Ibuprofen [Advil] 600 mg PO TID PRN 06/08/19 06/08/19 History Allergies Allergy/AdvReac Type Severity Reaction Status Date / Time amoxicillin Allergy Rash/Hives Verified 06/08/19 08:08 Physical Exam Vitals: Vital Signs Temp Pulse Pulse Resp BP BP Pulse Ox 06/08/19 11:52 98.2 F 50 L 18 150/78 99 06/08/19 08:30 97.9 F 53 L 18 153/85 99 06/08/19 08:00 43 L 17 143/79 99 06/08/19 07:30 44 L 18 161/86 99 06/08/19 07:00 45 L 15 146/84 100 06/08/19 06:05 98 F 62 20 157/42 99 Intake and Output 06/07/19 06/08/19 06/08/19 22:59 06:59 14:59 Other: Weight 77.111 kg GENERAL: The patient is alert and oriented x3, not in any acute distress. Well developed, well nourished. HEENT: Pupils are round and equally reacting to light. EOMI. No scleral icterus. No conjunctival pallor. Normocephalic, atraumatic. No pharyngeal erythema. No thyromegaly. CARDIOVASCULAR: S1 and S2 present. No murmurs, rubs, or gallops. PULMONARY: Chest is clear to auscultation, no wheezing or crackles. -ABDOMEN: Soft, epigastric tenderness with no rebound tenderness or guarding, nondistended, normoactive bowel sounds. No palpable organomegaly. MUSCULOSKELETAL: No joint swelling or deformity. EXTREMITIES: No cyanosis, clubbing, or pedal edema. NEUROLOGICAL: Gross neurological examination did not reveal any focal deficits. SKIN: No rashes. No petechiae Results CBC & Chem 7: 06/08/19 06:16 06/08/19 06:16 Labs: Abnormal Lab Results - Last 24 Hours (Table) 06/08/19 Range/Units 06:16 Glucose 123 H (74-99) mg/dL Thrombosis Risk Factor Assmnt - Choose All That Apply Any of the Below Risk Factors Present?: Yes Each Factor Represents 1 point: Age 41-60 years Other Risk Factors: Yes Each Risk Factor Represents 3 Points: Family history of DVT/PE Other congenital or acquired thrombophilia - If yes, enter type in comment: No Thrombosis Risk Factor Assessment Total Risk Factor Score: 4 Thrombosis Risk Factor Assessment Level: Moderate Risk Assessment and Plan Assessment: abdominal/epigastric pain. Gallbladder ultrasound is negative. history of coronary artery disease status post stent placement Hyperlipidemia Hypertension Plan: this is a pleasant 49 years old male who presents with abdominal pain and recurrent vomiting. Going to do abdominal x-ray, we'll ask for GI and surgery consult. Keep the patient nothing by mouth for now. Pain management. IV fluids. 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 Labs and medication were reviewed.. Continue same treatment. Continue with symptomatic treatment. Resume home medication. Monitor lytes and vitals. DVT and GI prophylaxis. Further recommendations of the clinical course of the patient DVT prophylaxis: Subcutaneous heparin GI Prophylaxis: Protonix Prognosis is guarded
[2019-06-08] MEDS ORDERED: ONDANSETRON 4 MG/2 ML VIAL IVP PRN (13:21)
--- NOTE | 2019-06-08 13:49 | P.CRDCN ---
History of Present Illness History of present illness: This is a pleasant 49-year-old male past medical history significant for coronary artery disease status post stent placement to the RCA, hypertension, dyslipidemia, chronic nicotine dependence and daily marijuana use. He follows in the office with Dr. Briscoe. We have been asked to see him in consultation secondary to chest discomfort. He states yesterday while working he felt a pressure in the chest associated with nausea. The discomfort was ongiong and persistent into the evening with no specific alleviating factors. He vomited a couple times once at home. He took nitro and achieved some relief but not completely. At times the pain is pleuritic. He has some associated shortness of breath and a dry cough. He is seen and examined sitting up in bed in no acute distress chest pain free. EKG reveals sinus mechanism heart rate of [address] or T wave abnormal ities noted. Chest x-ray is negative for an acute cardiopulmonary process. Laboratory data reviewed, CBC unremarkable, d-dimer 0.35, sodium 137, potassium 4.3, creatinine 0.9, magnesium 1.9, cardiac enzymes negative 1. Current daily cardiac medications include lisinopril 10 mg daily, atorvastatin 8 1 mg daily and aspirin 81 mg daily. Most recent cardiac catheterization performed January 2018 revealed patent stent in the RCA and a 30-40% lesion in the proximal to mid ramus. At the time of my exam: CONSTITUTIONAL: Denies fever. Denies chills. EYES: Denies blurred vision. Denies vision changes. Denies eye pain. EARS, NOSE, MOUTH & THROAT: Denies headache. Denies sore throat. Denies ear pain. CARDIOVASCULAR: Denies chest pain. Denies shortness of breath. Denies orthopnea. Denies PND. Denies palpitations. RESPIRATORY: Denies cough. GASTROINTESTINAL: Denies abdominal pain. Denies diarrhea. Denies constipation. Denies nausea. Denies vomiting. MUSCULOSKELETAL: Denies myalgias. INTEGUMENTARY: Denies pruitis. Denies rash. NEUROLOGIC: Denies numbness. Denies tingling. Denies weakness. PSYCHIATRIC: Denies anxiety. Denies depression. ENDOCRINE: Denies fatigue. Denies weight change. Denies polydipsia. Denies polyurina. GENITOURINARY: Denies burning, hematuria or urgency with micturation. HEMATOLOGIC: Denies history of anemia. Denies bleeding. Blood pressure 150/78 heart rate 58 afebrile maintaining oxygen saturation on room air GENERAL: This is a 49-year-old male in no apparent distress at the time of my examination. HEENT: Head is atraumatic, normocephalic. Pupils are equal, round. Sclerae anicteric. Conjunctivae are clear. Mucous membranes of the mouth are moist. Neck is supple. There is no jugular venous distention. No carotid bruit is heard. LUNGS: Clear to auscultation no wheezes, rales or rhonchi. No chest wall tenderness is noted on palpation or with deep breathing. HEART: Regular rate and rhythm without murmurs, rubs or gallops. S1 and S2 heard. ABDOMEN: Soft, nontender. Bowel sounds are heard. No organomegaly noted. EXTREMITIES: No evidence of peripheral edema and no calf tenderness noted. VASCULAR: Radial and dorsalis pedis pulses palpated, no evidence of clubbing. NEUROLOGIC: Patient is awake, alert and oriented x3. ASSESSMENT Chest pain with nausea and vomiting History of coronary artery disease s/p stent placement to the RCA 09/2017 in the setting of an acute NSTEMI Hypertension Dyslipidemia Chronic nicotine dependence Daily marijuana use PLAN Symptoms of constant chest pressure with no change in EKG or troponin unlikely to be related to ACS, consider underlying GI etiology. Continue to obtain serial cardiac enzymes to rule out an acute coronary event. Obtain 2D echocardiogram and doppler study to assess cardiac structure and function. Check an ultrasound of the gallbladder. Tobacco and marijuana use discouraged. Further recommendations to follow based on clinical course. Thank you kindly for this consultation. Nurse Practitioner note has been reviewed, I agree with a documented findings and plan of care. Patient was seen and examined. Past Medical History Past Medical History: Chest Pain / Angina, Hyperlipidemia, Hypertension, Myocardial Infarction ([place]) Additional Past Medical History / Comment(s): 'silent heart attack', bruises easily, constipation, Last Myocardial Infarction Date:: 10/11/2017 History of Any Multi-Drug Resistant Organisms: None Reported Past Surgical History: Appendectomy, Heart Catheterization With Stent, Hernia Repair, Tonsillectomy Additional Past Surgical History / Comment(s): one cardiac stent, cyst removed from back of left leg, Past Anesthesia/Blood Transfusion Reactions: No Reported Reaction Date of Last Stent Placement:: 10/11/17 Past Psychological History: No Psychological Hx Reported Smoking Status: Current every day smoker Past Alcohol Use History: Occasional Past Drug Use History: Marijuana - Past Family History Father Family Medical History: Deep Vein Thrombosis (DVT), Myocardial Infarction ([place]) Additional Family Medical History / Comment(s): CABG Mother Family Medical History: No Reported History Medications and Allergies Home Medications Medication Instructions Recorded Confirmed Type Lisinopril [Zestril] 10 mg PO HS 06/15/18 06/08/19 History Atorvastatin [Lipitor] 80 mg PO HS 03/08/19 06/08/19 History Aspirin 81 mg PO HS 06/08/19 06/08/19 History Ibuprofen [Advil] 600 mg PO TID PRN 06/08/19 06/08/19 History Allergies Allergy/AdvReac Type Severity Reaction Status Date / Time amoxicillin Allergy Rash/Hives Verified 06/08/19 08:08 Physical Exam Vitals: Vital Signs Temp Pulse Pulse Resp BP BP Pulse Ox 06/08/19 08:30 97.9 F 53 L 18 153/85 99 06/08/19 08:00 43 L 17 143/79 99 06/08/19 07:30 44 L 18 161/86 99 06/08/19 07:00 45 L 15 146/84 100 06/08/19 06:05 98 F 62 20 157/42 99 Intake and Output 06/07/19 06/08/19 06/08/19 22:59 06:59 14:59 Other: Weight 77.111 kg Results 06/08/19 06:16 06/08/19 06:16 Cardiac Enzymes 06/08/19 06/08/19 Range/Units 06:16 06:16 AST 24 (17-59) U/L Troponin I <0.012 (0.000-0.034) ng/mL Coagulation 06/08/19 Range/Units 06:16 PT 9.9 (9.0-12.0) sec APTT 23.9 (22.0-30.0) sec CBC 06/08/19 Range/Units 06:16 WBC 10.3 (3.8-10.6) k/uL RBC 4.87 (4.30-5.90) m/uL Hgb 16.4 (13.0-17.5) gm/dL Hct 47.0 (39.0-53.0) % Plt Count 312 (150-450) k/uL Comprehensive Metabolic Panel 06/08/19 Range/Units 06:16 Sodium 137 (137-145) mmol/L Potassium 4.3 (3.5-5.1) mmol/L Chloride 105 (98-107) mmol/L Carbon Dioxide 24 (22-30) mmol/L BUN 10 (9-20) mg/dL Creatinine 0.90 (0.66-1.25) mg/dL Glucose 123 H (74-99) mg/dL Calcium 10.0 (8.4-10.2) mg/dL AST 24 (17-59) U/L ALT 27 (21-72) U/L Alkaline Phosphatase 98 (38-126) U/L Total Protein 6.9 (6.3-8.2) g/dL Albumin 4.3 (3.5-5.0) g/dL Current Medications Generic Name Dose Route Start Last Admin Trade Name Freq PRN Reason Stop Dose Admin Aspirin 325 mg 06/09/19 09:00 Aspirin PO DAILY AMINATA Sodium Chloride 1,000 mls @ 20 mls/hr 06/08/19 07:15 06/08/19 08:03 Saline 0.9% IV 20 mls/hr .Q24H AMINATA Administration Nitroglycerin 0.4 mg 06/08/19 07:01 Nitrostat SUBLINGUAL Q5M PRN Chest Pain Intake and Output 06/07/19 06/08/19 06/08/19 22:59 06:59 14:59 Other: Weight 77.111 kg 06/08/19 06:16 06/08/19 06:16
[2019-06-08] MEDS: PANTOPRAZOLE 40 MG/10 ML VIAL IVP SCH (14:47)
[2019-06-08] MEDS: DEXTROSE 5%-0.9% NACL 1,000 ML IV SCH (14:48)
--- NOTE | 2019-06-08 14:54 | XR ---
EXAMINATION TYPE: XR abdomen 1V DATE OF EXAM: 06/08/2019 2:46 PM CLINICAL HISTORY: Epigastric pain and tenderness. TECHNIQUE: Two supine KUB images of the abdomen are obtained. COMPARISON: Abdominal x-ray May 28, 2009 FINDINGS: Scattered gas is seen in non-distended stomach and small bowel loops. Gas is seen in non-di stended colon. There is no visceromegaly or abnormal calcification appreciated. The lung bases are cl ear and the osseous structures are intact. IMPRESSION: Overall nonobstructive bowel gas pattern.
[2019-06-08] MEDS ORDERED: DICYCLOMINE 20 MG TAB PO PRN (16:20)
--- NOTE | 2019-06-08 18:35 | P.GSCN ---
History of Present Illness Consult date: 06/08/19 History of present illness: 49-year-old male began having abdominal pain midepigastric yesterday he had multiple bouts of emesis greater than 10 yesterday. He denies any blood in his emesis. He's never had pain like this before. He does have a history of CAD. Hit stents placed 3 years ago. He is not currently on Plavix. He takes a baby aspirin daily. He also has hypertension. His past surgical history is significant for appendectomy. He denies any regular NSAID use. He denies any diarrhea. He had a normal bowel movement yesterday. No blood. Ultrasound of the gallbladder showed no signs of his cholecystitis. No gallstones. Past Medical History Past Medical History: Chest Pain / Angina, Hyperlipidemia, Hypertension, Myocardial Infarction ([place]) Additional Past Medical History / Comment(s): 'silent heart attack', bruises easily, constipation, Last Myocardial Infarction Date:: 10/11/2017 History of Any Multi-Drug Resistant Organisms: None Reported Past Surgical History: Appendectomy, Heart Catheterization With Stent, Hernia Repair, Tonsillectomy Additional Past Surgical History / Comment(s): one cardiac stent, cyst removed from back of left leg, Past Anesthesia/Blood Transfusion Reactions: No Reported Reaction Date of Last Stent Placement:: 10/11/17 Past Psychological History: No Psychological Hx Reported Smoking Status: Current every day smoker Past Alcohol Use History: Occasional Past Drug Use History: Marijuana - Past Family History Father Family Medical History: Deep Vein Thrombosis (DVT), Myocardial Infarction ([place]) Additional Family Medical History / Comment(s): CABG Mother Family Medical History: No Reported History Additional Family Medical History / Comment(s): Mother is healthy Medications and Allergies Home Medications Medication Instructions Recorded Confirmed Type Lisinopril [Zestril] 10 mg PO HS 06/15/18 06/08/19 History Atorvastatin [Lipitor] 80 mg PO HS 03/08/19 06/08/19 History Aspirin 81 mg PO HS 06/08/19 06/08/19 History Ibuprofen [Advil] 600 mg PO TID PRN 06/08/19 06/08/19 History Allergies Allergy/AdvReac Type Severity Reaction Status Date / Time amoxicillin Allergy Rash/Hives Verified 06/08/19 08:08 Surgical - Exam Osteopathic Statement: *. No significant issues noted on an osteopathic structural exam other than those noted in the History and Physical/Consult. Vital Signs Temp Pulse Resp BP Pulse Ox 98 F 62 20 157/42 99 06/08/19 06:05 06/08/19 06:05 06/08/19 06:05 06/08/19 06:05 06/08/19 06:05 - General well developed, well nourished, no distress - Eyes PERRL - Respiratory normal expansion, normal respiratory effort - Cardiovascular Rhythm: regular - Abdomen Abdomen: soft, non tender - Neurologic normal coordination, normal sensation - Psychiatric oriented to time, oriented to person, oriented to place Results - Labs 06/08/19 06:16 06/08/19 06:16 Abnormal Lab Results - Last 24 Hours (Table) 06/08/19 Range/Units 06:16 Glucose 123 H (74-99) mg/dL Diabetes panel 06/08/19 Range/Units 06:16 Sodium 137 (137-145) mmol/L Potassium 4.3 (3.5-5.1) mmol/L Chloride 105 (98-107) mmol/L Carbon Dioxide 24 (22-30) mmol/L BUN 10 (9-20) mg/dL Creatinine 0.90 (0.66-1.25) mg/dL Glucose 123 H (74-99) mg/dL Calcium 10.0 (8.4-10.2) mg/dL AST 24 (17-59) U/L ALT 27 (21-72) U/L Alkaline Phosphatase 98 (38-126) U/L Total Protein 6.9 (6.3-8.2) g/dL Albumin 4.3 (3.5-5.0) g/dL Calcium panel 06/08/19 Range/Units 06:16 Calcium 10.0 (8.4-10.2) mg/dL Albumin 4.3 (3.5-5.0) g/dL Pituitary panel 06/08/19 Range/Units 06:16 Sodium 137 (137-145) mmol/L Potassium 4.3 (3.5-5.1) mmol/L Chloride 105 (98-107) mmol/L Carbon Dioxide 24 (22-30) mmol/L BUN 10 (9-20) mg/dL Creatinine 0.90 (0.66-1.25) mg/dL Glucose 123 H (74-99) mg/dL Calcium 10.0 (8.4-10.2) mg/dL Adrenal panel 06/08/19 Range/Units 06:16 Sodium 137 (137-145) mmol/L Potassium 4.3 (3.5-5.1) mmol/L Chloride 105 (98-107) mmol/L Carbon Dioxide 24 (22-30) mmol/L BUN 10 (9-20) mg/dL Creatinine 0.90 (0.66-1.25) mg/dL Glucose 123 H (74-99) mg/dL Calcium 10.0 (8.4-10.2) mg/dL Total Bilirubin 1.1 (0.2-1.3) mg/dL AST 24 (17-59) U/L ALT 27 (21-72) U/L Alkaline Phosphatase 98 (38-126) U/L Total Protein 6.9 (6.3-8.2) g/dL Albumin 4.3 (3.5-5.0) g/dL Assessment and Plan Assessment: abdominal pain likely secondary to gastritis Plan: no plans for acute surgical intervention at this time. Continue with PPI and GI recommendations.
[2019-06-08] MEDS: HEPARIN SODIUM,PORCINE 5,000 UNIT/ML 1 ML VIAL SQ SCH (20:39)
[2019-06-08] MEDS ORDERED: ATORVASTATIN 80 MG TAB PO SCH (21:00)
[2019-06-08] MEDS ORDERED: LISINOPRIL 10 MG TAB PO SCH (21:00)
--- NOTE | 2019-06-08 21:51 | P.CONS ---
History of Present Illness - Reason for Consult Consult date: 06/08/19 Abdominal pain, nausea and vomiting Requesting physician: Joselo E Sheet - Chief Complaint Abdominal pain, nausea and vomiting - History of Present Illness 49-year-old with a past medical history significant for coronary artery disease with prior stent placement, hypertension and hyperlipidemia who presented to the hospital with complaints of abdominal pain. The patient describes abdominal pain in the epigastric region of his abdomen and described as intense and press ure-like in sensation. She states that there is no radiation of the pain and it was constant. The pain has improved with IV pain medications but is still present. No prior episodes of abdominal pain similar in nature. He had associated nausea and vomiting with what he describes as 12 episodes of nonbloody emesis where he brought up previously eating food. Denies any triggering events, sick contacts, or unusual foods or new medications. He reports using Advil 2-3 times per week at which time he'll take 3 pills. He denies any change in bowel habits reporting his last normal bowel movement was yesterday with no blood per rectum or melena noted. Laboratory evaluation on presentation significant for a WBC 10.3, hemoglobin 16.4, platelet count 3- 12,000, INR 0.9, total bilirubin 1.1, alkaline phosphatase 98, AST 24, ALT 25, amylase 52, lipase 64. Ultrasound of the abdomen negative for any cholelithiasis. No prior cholecystectomy, upper endoscopy, colonoscopy or history of peptic ulcer disease. Review of Systems REVIEW OF SYSTEMS: CONSTITUTIONAL: Denies any fevers, chills, weight change or fatigue. CARDIOVASCULAR: Denies any chest pain, palpitations high or low blood pressures RESPIRATORY: Denies any shortness of breath, hemoptysis or cough. GENITOURINARY: No dysuria or hematuria. MUSCULOSKELETAL: No weakness reported. SKIN: Denies any new rashes or lesions, jaundice or pallor. PSYCHIATRIC: Denies any depression or anxiety. NEUROLOGY: Denies headache, denies any new focal deficits. EARS/NOSE/THROAT: No recent hearing change, congestion, nasal discharge or sore throat. EYES: No pain in eyes, discharge or change in vision. GASTROINTESTINAL: As per HPI. Past Medical History Past Medical History: Chest Pain / Angina, Hyperlipidemia, Hypertension, Myocardial Infarction ([place]) Additional Past Medical History / Comment(s): 'silent heart attack', bruises easily, constipation, Last Myocardial Infarction Date:: 10/11/2017 History of Any Multi-Drug Resistant Organisms: None Reported Past Surgical History: Appendectomy, Heart Catheterization With Stent, Hernia Repair, Tonsillectomy Additional Past Surgical History / Comment(s): one cardiac stent, cyst removed from back of left leg, Past Anesthesia/Blood Transfusion Reactions: No Reported Reaction Date of Last Stent Placement:: 10/11/17 Past Psychological History: No Psychological Hx Reported Smoking Status: Current every day smoker Past Alcohol Use History: Occasional Past Drug Use History: Marijuana - Past Family History Father Family Medical History: Deep Vein Thrombosis (DVT), Myocardial Infarction ([place]) Additional Family Medical History / Comment(s): CABG Mother Family Medical History: No Reported History Additional Family Medical History / Comment(s): Mother is healthy Medications and Allergies Home Medications Medication Instructions Recorded Confirmed Type Lisinopril [Zestril] 10 mg PO HS 06/15/18 06/08/19 History Atorvastatin [Lipitor] 80 mg PO HS 03/08/19 06/08/19 History Aspirin 81 mg PO HS 06/08/19 06/08/19 History Ibuprofen [Advil] 600 mg PO TID PRN 06/08/19 06/08/19 History Allergies Allergy/AdvReac Type Severity Reaction Status Date / Time amoxicillin Allergy Rash/Hives Verified 06/08/19 08:08 Physical Exam Vitals: Vital Signs Temp Pulse Pulse Resp BP BP Pulse Ox 06/08/19 13:27 98 06/08/19 11:52 98.2 F 50 L 18 150/78 99 06/08/19 08:30 97.9 F 53 L 18 153/85 99 06/08/19 08:00 43 L 17 143/79 99 06/08/19 07:30 44 L 18 161/86 99 06/08/19 07:00 45 L 15 146/84 100 06/08/19 06:05 98 F 62 20 157/42 99 Intake and Output 06/07/19 06/08/19 06/08/19 22:59 06:59 14:59 Other: Weight 77.111 kg On physical examination, patient appears comfortable in no apparent distress. HEAD: Normocephalic, atraumatic. EYES: No scleral icterus. No conjunctival injection. MOUTH: No lesions, tongue midline. NECK: Trachea midline, no gross abnormalities. CHEST: Clear to auscultation with no wheezing or rhonchi appreciated. HEART: Regular rate and rhythm. ABDOMEN: Soft. Bowel sounds are positive. No organomegaly. No guarding or rigidity. EXTREMITIES: No pedal edema. SKIN: No rashes, no jaundice. NEUROLOGIC: Alert and oriented x3. No focal deficits. Results CBC & Chem 7: 06/08/19 06:16 06/08/19 06:16 Labs: Abnormal Lab Results - Last 24 Hours (Table) 06/08/19 Range/Units 06:16 Glucose 123 H (74-99) mg/dL US - abdomen: report reviewed (Ultrasound of the abdomen with no evidence of cholelithiasis.) Assessment and Plan (1) Abdominal pain Narrative/Plan: 49-year-old with multiple medical comorbidities presenting to the hospital with complaints of abdominal pain in the epigastric region of his abdomen. Pain was severe in nature with associated nausea and vomiting. No elevation in amylase and lipase to suggest pancreatitis, or elevation in liver enzymes or findings on ultrasound to suggest cholelithiasis or cholecystitis. Patient does have a history of daily aspirin use and Advil use 2-3 times weekly with differential including peptic ulcer disease, GERD, esophagitis/gastritis, functional pain or other etiology. Current Visit: Yes Status: Acute Code(s): R10.9 - UNSPECIFIED ABDOMINAL PAIN SNOMED Code(s): 71820303 (2) Nausea and vomiting Current Visit: Yes Status: Acute Code(s): R11.2 - NAUSEA WITH VOMITING, UNSPECIFIED SNOMED Code(s): 21772614 Plan: Supportive care Okay for diet, nothing by mouth after midnight Continue Protonix 40 mg daily Bentyl 20 mg 4 times a day as needed for pain added Plan for EGD tomorrow for further evaluation Continue to monitor CBC, CMP and clinically Ultrasound abdomen reviewed Thank you for allowing us to participate in the care of this patient we will continue to follow
[2019-06-09] MEDS: DEXTROSE 5%-0.9% NACL 1,000 ML IV SCH (02:15)
[2019-06-09 04:31] LABS: Cholesterol 109 mg/dL (<200); HDL Cholesterol 35 mg/dL (40-60); LDL Cholesterol,Calculated 54 mg/dL (0-99); Triglycerides 102 mg/dL (<150)
[2019-06-09] MEDS: SODIUM CHLORIDE 0.9% 1,000 ML IV SCH (08:45)
[2019-06-09] MEDS: PANTOPRAZOLE 40 MG/10 ML VIAL IVP SCH (08:45)
[2019-06-09] MEDS: HEPARIN SODIUM,PORCINE 5,000 UNIT/ML 1 ML VIAL SQ SCH (08:45)
[2019-06-09] MEDS ORDERED: ASPIRIN 81 MG PO SCH (09:00)
[2019-06-09] MEDS ORDERED: ASPIRIN 325 MG TAB PO SCH (09:00)
--- NOTE | 2019-06-09 10:01 | P.PN ---
Subjective This is a pleasant 49-year-old male past medical history significant for coronary artery disease status post stent placement to the RCA, h ypertension, dyslipidemia, chronic nicotine dependence and daily marijuana use. He follows in the office with Dr. Briscoe. He is seen and examined sitting up in bed in no acute distress. He denies ongoing chest pain, nausea or vomiting. He has been seen by GI and is scheduled for an EGD today. Laboratory data reviewed, cardiac enzymes negative x3. Blood pressure 126/76 heart rate 65 afebrile and ma intaining oxygen saturation on room air. Echocardiogram obtained reveals preserved LV systolic function with EF 60-65%, normal diastolic filling, no wall motion abnormalities and mild TR. GENERAL: This is a 49-year-old male in no apparent distress at the time of my examination. HEENT: Head is atraumatic, normocephalic. Pupils are equal, round. Sclerae anicteric. Conjunctivae are clear. Mucous membranes of the mouth are moist. Neck is supple. There is no jugular venous distention. No carotid bruit is heard. LUNGS: Clear to auscultation no wheezes, rales or rhonchi. No chest wall ten derness is noted on palpation or with deep breathing. HEART: Regular rate and rhythm without murmurs, rubs or gallops. S1 and S2 heard. EXTREMITIES: No evidence of peripheral edema and no calf tenderness noted. ASSESSMENT Chest pain with nausea and vomiting History of coronary artery disease s/p stent placement to the RCA 09/2017 in the setting of an acute NSTEMI Hypertension Dyslipidemia Chronic nicotine dependence Daily marijuana use PLAN Stable from a cardiac perspective. Follow up with Dr. Briscoe in 1-week. Nurse Practitioner note has been reviewed, I agree with a documented findings a nd plan of care. Patient was seen and examined. Objective - Vital Signs Vital signs: Vital Signs Temp 98.8 F 06/09/19 07:07 Pulse 65 06/09/19 07:07 Resp 18 06/09/19 08:00 BP 126/76 06/09/19 07:07 Pulse Ox 98 06/09/19 07:07 Intake & Output 06/08/19 06/09/19 06/09/19 18:59 06:59 18:59 Intake Total 495 Balance 495 Intake: Intake, IV Titration 75 Amount Dextrose 5%-0.9% NaCl 1, 75 000 ml @ 75 mls/hr IV . [id number] AMINATA Rx#:[id number] Oral 420 Other: # Voids 1 - Labs CBC & Chem 7: 06/08/19 06:16 06/08/19 06:16 Labs: Abnormal Lab Results - Last 24 Hours (Table) 06/08/19 Range/Units 06:16 HDL Cholesterol 35 L (40-60) mg/dL
[2019-06-09 11:08] VITALS: TEMP 98.6
[2019-06-09] MEDS ORDERED: LIDOCAINE 1% INJ 10MG/ML (20 ML MDV) ONE (13:39)
[2019-06-09] MEDS ORDERED: PROPOFOL 10 MG/ML 20 ML VIAL IV ONE (13:39)
--- NOTE | 2019-06-09 14:01 | P.PCN ---
Date of Procedure: 06/09/19 Procedure(s) Performed: BRIEF HISTORY: Patient is a 49-year-old, pleasant, male, admitted hospital with severe epigastric abdominal pain and chest pain of 2 days' duration. He takes Aleve on a regular basis. Scheduled for an upper endoscopy to evaluate further.. PROCEDURE PERFORMED: Esophagogastroduodenoscopy With biopsy PREOPERATIVE DIAGNOSIS: [Severe epigastric pain of 2 days' duration IV sedation per anesthesia. PROCEDURE: After informed consent was obtained, the patient was brought into [facility] endoscopy unit. IV sedation was administered by Anesthesia under continuous monitoring. Initially the Olympus GIF-140 video endoscope was inserted into the mouth. Esophagus intubated without any difficulty. It was gradually advanced into the stomach and duodenum and carefully examined. The bulb and the second part of the duodenum appeared normal. The scope at this time was withdrawn to the stomach, adequately insufflated with air, and upon careful examination, mucosa of the antrum, had a 2 cm clean-based deep antral ulcer in the pyloric area that was biopsied. There were scattered erosions in the antrum consistent with erosive gastritis. Rest of thebody, cardia and the fundus appeared normal. The scope was then withdrawn into the esophagus. The GE junction was located at 39 cm from the incisors. was a short segment of Gonzalez's esophagus identified which was biopsied. The rest of the esophagus appeared normal. There were no erosions or ulcerations seen and the patient tolerated the procedure well. IMPRESSION: 1. 2 cm clean-based deep antral ulcer status post biopsy 2. Antral erosive Gastritis 3. Short segment Gonzalez's esophagus RECOMMENDATIONS: The findings of this examination were discussed with the patient as well as his family. He was advised to follow with the biopsy results. He will continue with Protonix 40 mg daily and avoid NSAIDs . Diet will be advanced as tolerated.
[2019-06-09] MEDS ORDERED: IV FLUID CONTINUATION 200 ML IV ONE (14:08)
[2019-06-09 15:14] VITALS: BP 144/68; PULSE 52
--- NOTE | 2019-06-09 15:45 | P.DS ---
Providers Date of admission: 06/08/19 14:35 Attending physician: Jonathan Rich Consults: 06/08/19 07:01 Consult Physician Routine Consulting Provider: Keon Briones Consult Reason/Comments: chest pain Do you want consulting provider notified?: Yes 06/08/19 13:20 Consult Physician Urgent Consulting Provider: Gonsalo Walker Consult Reason/Comments: abd pain and vomiting Do you want consulting provider notified?: Yes Consult Physician Urgent Consulting Provider: Brigida Briscoe Consult Reason/Comments: abd pain and vomiting Do you want consulting provider notified?: Yes Primary care physician: Bre Smith [facility] Course: Diagnoses: abdominal/epigastric pain. EGD: Antral ulcer And Gonzalez's esophagus Recurrent vomiting. Resolved history of coronary artery disease status post stent placement Hyperlipidemia Hypertension Hospital course: This is a pleasant 49 years old male with past medical history of coronary artery disease status post stent placement, hyperlipidemia, hypertension. Patient presents with moderate to severe epigastric abdominal pain of one-day duration associated with several bouts of vomiting, patient came to the hospital was started on Protonix his abdominal pain is completely resolved and he tolerated diet well. Patient has been evaluated by several consultants including dynamite packing machine operator, and surgical team who found the patient with no need for further workup. However of gastric dynamite packing machine operator recommended EGD which showed a 2 cm clean-based deep antral ulcer status post biopsy and antral erosive gastritis with short segment of Gonzalez's esophagus. Patient was informed about these findings and he was instructed to follow up with GI team with the appointments made for him on 06/29/2019 risks including but not limited to cancer are explained for the patient and he states he will follow-up. Also patient was counseled that Gonzalez's esophagus was precancerous lesion and he needs to follow up for its and he agrees. As stated above patient's symptoms completely resolved and he tolerated diet well, patient was referred to be discharged home. Patient will be discharged on antiacids Protonix. Patient also advised to avoid NSAIDs slight Improvement and he agrees. Patient was cleared for discharge by GI, surgery and cardiology team Problems and management plan were discussed with the patient and he verbalized understanding and acceptance Patient was found stable and can be discharged home however he needs follow-up as an outpatient. Patient was instructed to follow up with PCP within one week and patient agrees. Patient agrees with the appointments made for him with the [facility] and cartilage team and the timing and states he will follow-up Gen: patient is a AAOx3, no distress CVS: S1-S2, RRR, no murmur Lungs: B/L CTA, no wheezing Abdomen: soft, no distention, no tenderness, positive bowel sounds Extremity: no leg edema or induration Time spent more than 35 minutes Patient Condition at Discharge: Fair Plan - Discharge Summary Discharge Rx Participant: No New Discharge Prescriptions: No Action Lisinopril [Zestril] 10 mg PO HS Atorvastatin [Lipitor] 80 mg PO HS Ibuprofen [Advil] 600 mg PO TID PRN PRN Reason: Pain Aspirin 81 mg PO HS Discharge Medication List Lisinopril [Zestril] 10 mg PO HS 06/15/18 [History] Atorvastatin [Lipitor] 80 mg PO HS 03/08/19 [History] Aspirin 81 mg PO HS 06/08/19 [History] Pantoprazole Sodium [Protonix] 40 mg PO DAILY #30 tablet. 06/09/19 [Rx] Follow up Appointment(s)/Referral(s): Katlyn Díaz MD [Primary Care Provider] - 1-2 days Brigida Briscoe MD [STAFF PHYSICIAN] - 06/29/19 9:50 am Bird Briscoe MD [STAFF PHYSICIAN] - 06/21/19 9:15 am Patient Instructions/Handouts: Chest Pain (DC)
== END 2019-06-09 16:08 | disposition home or self-care (01) | DRG 384 ==
LOC: EC 06:04 → 1SOBS 07:41 → OBSVTOIN 14:35
PROVIDERS: ADMIT Hospitalist; ATTEND Hospitalist
PROC: 0DB58ZX Excision of Esophagus, Via Natural or Artificial Opening Endoscopic, Diagnostic (ICD-10-PCS; principal; 2019-06-09 07:30)
PROC: 0DB78ZX Excision of Stomach, Pylorus, Via Natural or Artificial Opening Endoscopic, Diagnostic (ICD-10-PCS; principal; 2019-06-09 07:30)
DX: K25.9 Gastric ulcer, unspecified as acute or chronic, without hemorrhage or perforation (principal); K22.70 Barrett's esophagus without dysplasia; K29.50 Unspecified chronic gastritis without bleeding; E78.5 Hyperlipidemia, unspecified; F17.200 Nicotine dependence, unspecified, uncomplicated; I10 Essential (primary) hypertension; I25.10 Atherosclerotic heart disease of native coronary artery without angina pectoris; I25.2 Old myocardial infarction; Z79.02 Long term (current) use of antithrombotics/antiplatelets; Z79.82 Long term (current) use of aspirin; Z79.899 Other long term (current) drug therapy; Z82.49 Family history of ischemic heart disease and other diseases of the circulatory system; Z95.5 Presence of coronary angioplasty implant and graft
CPT/HCPCS: 36415; 43239; 71046; 74018; 76705; 80053; 80061; 82150; 83690; 83735; 84484; 85025; 85379; 85610; 85730; 88305; 88342; 90686; 93005; 93306; 94760; 96361; 96374; 96376; 99285

== ENCOUNTER 2019-09-14 07:04 | Emergency (ER) | payer BC ==
[2019-09-14] MEDS ORDERED: KETOROLAC 30 MG/ML 1 ML VIAL IVP STA (07:29)
[2019-09-14] MEDS ORDERED: SODIUM CHLORIDE 0.9% 1,000 ML IV STA ×2 (07:29)
[2019-09-14] MEDS ORDERED: methylPREDNISolone SOD SUCCI 125 MG/2 ML VIAL IV STA (07:29)
[2019-09-14] MEDS ORDERED: ORPHENADRINE 30 MG/ML 2 ML VIAL IVP STA (07:30)
--- NOTE | 2019-09-14 07:36 | ED ---
Extremity Problem HPI - General Chief complaint: Extremity Problem,Nontraumatic Stated complaint: Left Leg Pain Time Seen by Provider: 09/14/19 07:20 Source: patient, RN notes reviewed Mode of arrival: wheelchair - History of Present Illness Initial comments: This is a 49-year-old male with no known prior history of back injury who states for the past couple weeks she's had some low back pain and pain radiates from his buttock down to his foot and toes. He states is gotten worse last couple days he does state he's been seen by orthopedics as well as a chiropractor with no relief thus far. He says he got really bad over last day or so is no 9/10 severity sharp pain radiating no urinary or fecal incontinence states had diarrhea for last 2 days. He does feel somewhat weak and does complain of again the pain no fevers chills sweats. The patient is noted to be a smoker. There are no other modifying factors at this time MD Complaint: extremity pain - Related Data Home Medications Medication Instructions Recorded Confirmed Lisinopril [Zestril] 10 mg PO HS 06/15/18 06/08/19 Atorvastatin [Lipitor] 80 mg PO HS 03/08/19 06/08/19 Aspirin 81 mg PO HS 06/08/19 06/08/19 Previous Rx's Medication Instructions Recorded Pantoprazole Sodium [Protonix] 40 mg PO DAILY #30 tablet. 06/09/19 Cyclobenzaprine [Flexeril] 10 mg PO TID #14 tab 09/14/19 Hydrocodone/Acetaminophen [Stephenson 1 each PO Q6HR PRN #20 tab 09/14/19 5-325] predniSONE 20 mg PO BID #10 tab 09/14/19 Allergies Allergy/AdvReac Type Severity Reaction Status Date / Time amoxicillin Allergy Rash/Hives Verified 09/14/19 07:13 Review of Systems ROS Statement: Those systems with pertinent positive or pertinent negative responses have been documented in the HPI. ROS Other: All systems not noted in ROS Statement are negative. Past Medical History Past Medical History: Chest Pain / Angina, Hyperlipidemia, Hypertension, Myocardial Infarction ([place]) Additional Past Medical History / Comment(s): 'silent heart attack', bruises easily, constipation, Last Myocardial Infarction Date:: 10/11/2017 History of Any Multi-Drug Resistant Organisms: None Reported Past Surgical History: Appendectomy, Heart Catheterization With Stent, Hernia Repair, Tonsillectomy Additional Past Surgical History / Comment(s): one cardiac stent, cyst removed from back of left leg, Past Anesthesia/Blood Transfusion Reactions: No Reported Reaction Date of Last Stent Placement:: 10/11/17 Past Psychological History: No Psychological Hx Reported Smoking Status: Current every day smoker Past Alcohol Use History: Occasional Past Drug Use History: Marijuana - Past Family History Father Family Medical History: Deep Vein Thrombosis (DVT), Myocardial Infarction ([place]) Additional Family Medical History / Comment(s): CABG Mother Family Medical History: No Reported History Additional Family Medical History / Comment(s): Mother is healthy General Exam - General Exam Comments Initial Comments: This a well-developed asthenic appearing male was awake alert oriented 3 General appearance: alert, anxious Head exam: Present: atraumatic, normocephalic, normal inspection Eye exam: Present: normal appearance, PERRL, EOMI. Absent: scleral icterus, conjunctival injection, periorbital swelling ENT exam: Present: mucous membranes dry Neck exam: Present: normal inspection. Absent: tenderness, meningismus, lymphadenopathy Respiratory exam: Present: normal lung sounds bilaterally. Absent: respiratory distress, wheezes, rales, rhonchi, stridor Cardiovascular Exam: Present: regular rate, normal rhythm, normal heart sounds. Absent: systolic murmur, diastolic murmur, rubs, gallop, clicks GI/Abdominal exam: Present: soft, normal bowel sounds. Absent: distended, tenderness, guarding, rebound, rigid Extremities exam: Present: normal inspection, tenderness, normal capillary refill, other (Limited range of motion secondary to pain or tenderness palpation over the left SI joint area as well as left upper gluteus consistent with sciatica. Patient was noted have his wallet in his right hip pocket he was cautioned about doing this is a does also the pelvis when he is sitting or lying.). Absent: pedal edema, joint swelling, calf tenderness Back exam: Present: normal inspection Neurological exam: Present: alert, oriented X3, CN II-XII intact Psychiatric exam: Present: normal affect, normal mood Skin exam: Present: warm, dry, intact, normal color. Absent: rash Course Vital Signs 09/14/19 07:11 Temperature 98.7 F Pulse Rate 79 Respiratory 18 Rate Blood Pressure 147/91 O2 Sat by Pulse 98 Oximetry Medical Decision Making - Medical Decision Making Patient did not get much relief thus far but the lab work is within normal limits the presentation is consistent with sciatica patient will be discharged with appropriate medication follow-up with his doctor tomorrow for when necessary he did drive himself here today so narcotics or not to be given - Lab Data Result diagrams: 09/14/19 07:50 Lab Results 09/14/19 Range/Units 07:50 Sodium 140 (137-145) mmol/L Potassium 4.0 (3.5-5.1) mmol/L Chloride 107 (98-107) mmol/L Carbon Dioxide 25 (22-30) mmol/L Anion Gap 8 mmol/L BUN 10 (9-20) mg/dL Creatinine 0.80 (0.66-1.25) mg/dL Est GFR (CKD-EPI)AfAm >90 (>60 ml/min/1.73 sqM) Est GFR (CKD-EPI)NonAf >90 (>60 ml/min/1.73 sqM) Glucose 99 (74-99) mg/dL Calcium 9.5 (8.4-10.2) mg/dL Magnesium 2.1 (1.6-2.3) mg/dL Total Bilirubin 0.6 (0.2-1.3) mg/dL AST 38 (17-59) U/L ALT 32 (4-49) U/L Alkaline Phosphatase 94 (38-126) U/L Total Protein 6.9 (6.3-8.2) g/dL Albumin 4.2 (3.5-5.0) g/dL Lipase 111 (23-300) U/L Disposition Clinical Impression: Sciatica of left side Disposition: HOME SELF-CARE Condition: Good Instructions (If sedation given, give patient instructions): Sciatica (ED) Additional Instructions: Keep your follow-up with your doctor tomorrow Prescriptions: Cyclobenzaprine [Flexeril] 10 mg PO TID #14 tab Hydrocodone/Acetaminophen [Stephenson 5-325] 1 each PO Q6HR PRN #20 tab PRN Reason: Pain predniSONE 20 mg PO BID #10 tab Is patient prescribed a controlled substance at d/c from ED?: Yes When asked, does pt state using other controlled substances?: No If prescribed controlled substance>3 days was MAPS reviewed?: Prescribed <3 Days If Rx opioid, was Start Talking consent form obtained?: Yes Referrals: Katlyn Díaz MD [Primary Care Provider] - 1-2 days
[2019-09-14 08:17] LABS: ALT 32 U/L (4-49); AST 38 U/L (17-59); African American GFR (CKD) >90 (>60 ml/min/1.73 sqM); Albumin 4.2 g/dL (3.5-5.0); Alkaline Phosphatase 94 U/L (38-126); Anion Gap 8 mmol/L; Blood Urea Nitrogen 10 mg/dL (9-20); Calcium 9.5 mg/dL (8.4-10.2); Carbon Dioxide 25 mmol/L (22-30); Chloride 107 mmol/L (98-107); Glucose 99 mg/dL (74-99); Magnesium 2.1 mg/dL (1.6-2.3); Non-African American GFR(CKD) >90 (>60 ml/min/1.73 sqM); Sodium 140 mmol/L (137-145); Total Bilirubin 0.6 mg/dL (0.2-1.3); Total Protein 6.9 g/dL (6.3-8.2)
[2019-09-14 09:44] VITALS: BP 122/83; PULSE 76; RESP 21; TEMP 98.1
== END 2019-09-14 09:44 | disposition home or self-care (01) ==
LOC: EC 07:04
DX: M54.32 Sciatica, left side (principal); I10 Essential (primary) hypertension; E78.5 Hyperlipidemia, unspecified; I25.2 Old myocardial infarction; F17.200 Nicotine dependence, unspecified, uncomplicated; Z79.82 Long term (current) use of aspirin; Z79.899 Other long term (current) drug therapy; Z88.0 Allergy status to penicillin; Z95.5 Presence of coronary angioplasty implant and graft
CPT/HCPCS: 36415; 80053; 83690; 83735; 99283; 96374; 96375 ×2; 96361 ×2; J2360; J2930; J1885

== ENCOUNTER 2020-06-19 08:50 | Emergency (ER) | payer BC ==
[2020-06-19 08:53] VITALS: RESP 16; TEMP 97.5
--- NOTE | 2020-06-19 09:13 | ED ---
General Adult HPI - General Chief complaint: Shortness of Breath Stated complaint: GWENDOLYN Time Seen by Provider: 06/19/20 08:50 Source: patient, EMS, RN notes reviewed, old records reviewed Mode of arrival: EMS Limitations: no limitations - History of Present Illness Initial comments: This is a 50-year-old male who presents emergency Department complaining of shortness of breath per patient states while he was at work he became severely short of breath and diaphoretic and lightheaded. Patient states it lasts about an hour now it is subsided. Patient states she's had a heart attack in the past he has had no chest pain today or tightness or discomfort. Patient states he had no palpitations per patient denies any recent fever chills or cough. Sera ent states he is a smoker and continues to smoke. Patient denies any abdominal pain patient denies nausea vomiting diarrhea. Patient denies headache patient denies numbness weakness. - Related Data Home Medications Medication Instructions Recorded Confirmed lisinopriL [Zestril] 10 mg PO DAILY 06/15/18 06/19/20 Atorvastatin [Lipitor] 80 mg PO DAILY 03/08/19 06/19/20 Aspirin 81 mg PO DAILY 06/08/19 06/19/20 Allergies Allergy/AdvReac Type Severity Reaction Status Date / Time amoxicillin Allergy Rash/Hives Verified 06/19/20 09:47 Review of Systems ROS Statement: Those systems with pertinent positive or pertinent negative responses have been documented in the HPI. ROS Other: All systems not noted in ROS Statement are negative. Past Medical History Past Medical History: Chest Pain / Angina, Hyperlipidemia, Hypertension, Myocardial Infarction (NE) Additional Past Medical History / Comment(s): 'silent heart attack', bruises easily, constipation, Last Myocardial Infarction Date:: 10/11/2017 History of Any Multi-Drug Resistant Organisms: None Reported Past Surgical History: Appendectomy, Heart Catheterization With Stent, Hernia Repair, Tonsillectomy Additional Past Surgical History / Comment(s): one cardiac stent, cyst removed from back of left leg, Past Anesthesia/Blood Transfusion Reactions: No Reported Reaction Date of Last Stent Placement:: 10/11/17 Past Psychological History: No Psychological Hx Reported Smoking Status: Current every day smoker Past Alcohol Use History: Occasional Past Drug Use History: Marijuana - Past Family History Father Family Medical History: Deep Vein Thrombosis (DVT), Myocardial Infarction (NE) Additional Family Medical History / Comment(s): CABG Mother Family Medical History: No Reported History Additional Family Medical History / Comment(s): Mother is healthy General Exam - General Exam Comments Initial Comments: GENERAL: Patient is well-developed and well-nourished. Patient is nontoxic and well- hydrated and is in mild distress. ENT: Neck is soft and supple. No significant lymphadenopathy is noted. Oropharynx is clear. Moist mucous membranes. Neck has full range of motion without eliciting any pain. EYES: The sclera were anicteric and conjunctiva were pink and moist. Extraocular movements were intact and pupils were equal round and reactive to light. Eyelids were unremarkable. PULMONARY: Unlabored respirations. Good breath sounds bilaterally. No audible rales rhonchi or wheezing was noted. CARDIOVASCULAR: There is a regular rate and rhythm without any murmurs gallops or rubs. ABDOMEN: Soft and nontender with normal bowel sounds. SKIN: Skin is clear with no lesions or rashes and otherwise unremarkable. NEUROLOGIC: Patient is alert and oriented x3. Cranial nerves II through XII are grossly intact. Motor and sensory are also intact. Normal speech, volume and content. Symmetrical smile. MUSCULOSKELETAL: Normal extremities with adequate strength and full range of motion. No lower extremity swelling or edema. No calf tenderness. LYMPHATICS: No significant lymphadenopathy is noted PSYCHIATRIC: Normal psychiatric evaluation. Limitations: no limitations Course Vital Signs 06/19/20 06/19/20 08:51 10:23 Temperature 97.5 F L Pulse Rate 54 L 54 L Respiratory 16 16 Rate Blood Pressure 114/64 111/70 O2 Sat by Pulse 100 95 Oximetry Medical Decision Making - Medical Decision Making EKG shows sinus bradycardia at 49 bpm WI interval is 110 QRS is 88 QT interval 426 QTC is 384. Patient's EKG shows no ST segment elevation or depression or T wave abnormalities are noted. Chest x-ray shows no acute abnormality. Initially patient was willing to stay and I wrote admitting orders and then he decided to leave [facility]. - Lab Data Result diagrams: 06/19/20 09:19 06/19/20 09:19 Lab Results 06/19/20 06/19/20 06/19/20 Range/Units 09:19 09:19 09:19 WBC 8.7 (3.8-10.6) k/uL RBC 3.76 L (4.30-5.90) m/uL Hgb 12.6 L (13.0-17.5) gm/dL Hct 36.4 L (39.0-53.0) % MCV 96.6 (80.0-100.0) fL MCH 33.5 (25.0-35.0) pg MCHC 34.7 (31.0-37.0) g/dL RDW 12.4 (11.5-15.5) % Plt Count 304 (150-450) k/uL Neutrophils % 54 % Lymphocytes % 35 % Monocytes % 6 % Eosinophils % 2 % Basophils % 1 % Neutrophils # 4.7 (1.3-7.7) k/uL Lymphocytes # 3.0 (1.0-4.8) k/uL Monocytes # 0.5 (0-1.0) k/uL Eosinophils # 0.2 (0-0.7) k/uL Basophils # 0.1 (0-0.2) k/uL PT 9.8 (9.0-12.0) sec INR 0.9 (<1.2) APTT 23.8 (22.0-30.0) sec Sodium 139 (137-145) mmol/L Potassium 3.8 (3.5-5.1) mmol/L Chloride 110 H (98-107) mmol/L Carbon Dioxide 22 (22-30) mmol/L Anion Gap 7 mmol/L BUN 14 (9-20) mg/dL Creatinine 0.77 (0.66-1.25) mg/dL Est GFR (CKD-EPI)AfAm >90 (>60 ml/min/1.73 sqM) Est GFR (CKD-EPI)NonAf >90 (>60 ml/min/1.73 sqM) Glucose 100 H (74-99) mg/dL Plasma Lactic Acid Jhon (0.7-2.0) mmol/L Calcium 9.5 (8.4-10.2) mg/dL Magnesium 1.7 (1.6-2.3) mg/dL Total Bilirubin 0.7 (0.2-1.3) mg/dL AST 28 (17-59) U/L ALT 26 (4-49) U/L Alkaline Phosphatase 75 (38-126) U/L Troponin I (0.000-0.034) ng/mL Total Protein 6.3 (6.3-8.2) g/dL Albumin 3.9 (3.5-5.0) g/dL 06/19/20 06/19/20 Range/Units 09:19 09:19 WBC (3.8-10.6) k/uL RBC (4.30-5.90) m/uL Hgb (13.0-17.5) gm/dL Hct (39.0-53.0) % MCV (80.0-100.0) fL MCH (25.0-35.0) pg MCHC (31.0-37.0) g/dL RDW (11.5-15.5) % Plt Count (150-450) k/uL Neutrophils % % Lymphocytes % % Monocytes % % Eosinophils % % Basophils % % Neutrophils # (1.3-7.7) k/uL Lymphocytes # (1.0-4.8) k/uL Monocytes # (0-1.0) k/uL Eosinophils # (0-0.7) k/uL Basophils # (0-0.2) k/uL PT (9.0-12.0) sec INR (<1.2) APTT (22.0-30.0) sec Sodium (137-145) mmol/L Potassium (3.5-5.1) mmol/L Chloride (98-107) mmol/L Carbon Dioxide (22-30) mmol/L Anion Gap mmol/L BUN (9-20) mg/dL Creatinine (0.66-1.25) mg/dL Est GFR (CKD-EPI)AfAm (>60 ml/min/1.73 sqM) Est GFR (CKD-EPI)NonAf (>60 ml/min/1.73 sqM) Glucose (74-99) mg/dL Plasma Lactic Acid Jhon 1.2 (0.7-2.0) mmol/L Calcium (8.4-10.2) mg/dL Magnesium (1.6-2.3) mg/dL Total Bilirubin (0.2-1.3) mg/dL AST (17-59) U/L ALT (4-49) U/L Alkaline Phosphatase (38-126) U/L Troponin I <0.012 (0.000-0.034) ng/mL Total Protein (6.3-8.2) g/dL Albumin (3.5-5.0) g/dL Disposition Clinical Impression: Dyspnea, Anginal equivalent Disposition: Left Against Medical Advice Referrals: Katlyn Daíz MD [Primary Care Provider] - 1-2 days Time of Disposition: 10:40
[2020-06-19 09:28] LABS: Basophils # (A) 0.1 k/uL (0-0.2); Basophils % (A) 1 %; Eosinophils # (A) 0.2 k/uL (0-0.7); Eosinophils % (A) 2 %; HCT 36.4 % (39.0-53.0); HGB 12.6 gm/dL (13.0-17.5); Lymphocytes % (A) 35 %; MCH 33.5 pg (25.0-35.0); MCHC 34.7 g/dL (31.0-37.0); MCV 96.6 fL (80.0-100.0); Mean Platelet Volume 7.7; Monocytes # (A) 0.5 k/uL (0-1.0); Monocytes % (A) 6 %; Neutrophils # (A) 4.7 k/uL (1.3-7.7); Neutrophils % (A) 54 %; Platelet Count 304 k/uL (150-450); RBC 3.76 m/uL (4.30-5.90); RDW 12.4 % (11.5-15.5); WBC 8.7 k/uL (3.8-10.6)
[2020-06-19 09:36] LABS: INR 0.9 (<1.2); Partial Thromboplastin Time 23.8 sec (22.0-30.0); Prothrombin Time 9.8 sec (9.0-12.0)
--- NOTE | 2020-06-19 09:45 | XR ---
EXAMINATION TYPE: XR chest 2V DATE OF EXAM: 06/19/2020 CLINICAL HISTORY: difficulty breathing. TECHNIQUE: Frontal and lateral view of the chest. COMPARISON: 06/08/2019 chest radiograph FINDINGS: The cardiomediastinal silhouette is within normal limits for size. Pulmonary vasculature i s normal. There is no focal air space opacity, pleural effusion, or pneumothorax seen. The osseous st ructures are intact. IMPRESSION: No acute cardiopulmonary process.
[2020-06-19 09:48] LABS: ALT 26 U/L (4-49); AST 28 U/L (17-59); African American GFR (CKD) >90 (>60 ml/min/1.73 sqM); Albumin 3.9 g/dL (3.5-5.0); Alkaline Phosphatase 75 U/L (38-126); Anion Gap 7 mmol/L; Blood Urea Nitrogen 14 mg/dL (9-20); Calcium 9.5 mg/dL (8.4-10.2); Carbon Dioxide 22 mmol/L (22-30); Chloride 110 mmol/L (98-107); Glucose 100 mg/dL (74-99); Magnesium 1.7 mg/dL (1.6-2.3); Non-African American GFR(CKD) >90 (>60 ml/min/1.73 sqM); Potassium 3.8 mmol/L (3.5-5.1); Sodium 139 mmol/L (137-145); Total Bilirubin 0.7 mg/dL (0.2-1.3); Total Protein 6.3 g/dL (6.3-8.2)
[2020-06-19] MEDS ORDERED: NITROGLYCERIN SL TABS 0.4 MG TAB SUBLINGUAL PRN (10:42)
[2020-06-19 11:21] VITALS: BP 132/83; PULSE 86
[2020-06-19] MEDS ORDERED: NITROGLYCERIN OINT 1 INCH/GM PACKET TOPICAL SCH (12:00)
[2020-06-20] MEDS ORDERED: ASPIRIN 325 MG TAB PO SCH (09:00)
== END 2020-06-19 11:20 | disposition left against medical advice (07) ==
LOC: EC 08:50
DX: I20.8 Other forms of angina pectoris (principal); R06.02 Shortness of breath; R61 Generalized hyperhidrosis; I25.2 Old myocardial infarction; E78.5 Hyperlipidemia, unspecified; I10 Essential (primary) hypertension; F17.200 Nicotine dependence, unspecified, uncomplicated; Z88.0 Allergy status to penicillin; Z79.899 Other long term (current) drug therapy; Z79.82 Long term (current) use of aspirin; Z95.5 Presence of coronary angioplasty implant and graft; Z82.49 Family history of ischemic heart disease and other diseases of the circulatory system
CPT/HCPCS: 36415; 71046; 80053; 83605; 83735; 84484; 85025; 85610; 85730; 93005; 99285

== ENCOUNTER → 2021-02-11 | Outpatient (CLI) | payer BC ==
--- NOTE | 2021-02-11 11:03 | XR ---
EXAMINATION TYPE: XR chest 2V DATE OF EXAM: 02/11/2021 COMPARISON: 06/19/2020 HISTORY: Preoperative for spinal surgery TECHNIQUE: Frontal and lateral views of the chest are obtained. FINDINGS: There is no focal air space opacity, pleural effusion, or pneumothorax seen. The cardiac silhouette size is within normal limits. The osseous structures are intact. IMPRESSION: No acute cardiopulmonary process.
[2021-02-11 11:14] LABS: INR 0.9 (<1.2); Partial Thromboplastin Time 24.6 sec (22.0-30.0); Prothrombin Time 10.1 sec (9.0-12.0)
[2021-02-11 11:17] LABS: Basophils # (A) 0.1 k/uL (0-0.2); Basophils % (A) 1 %; Eosinophils # (A) 0.5 k/uL (0-0.7); Eosinophils % (A) 5 %; HCT 47.8 % (39.0-53.0); HGB 16.1 gm/dL (13.0-17.5); Lymphocytes # (A) 2.8 k/uL (1.0-4.8); Lymphocytes % (A) 32 %; MCH 32.3 pg (25.0-35.0); MCHC 33.7 g/dL (31.0-37.0); MCV 95.8 fL (80.0-100.0); Mean Platelet Volume 7.8; Monocytes # (A) 0.5 k/uL (0-1.0); Monocytes % (A) 6 %; Neutrophils # (A) 4.6 k/uL (1.3-7.7); Neutrophils % (A) 53 %; Platelet Count 288 k/uL (150-450); RBC 4.99 m/uL (4.30-5.90); RDW 13.7 % (11.5-15.5); WBC 8.7 k/uL (3.8-10.6)
[2021-02-11 11:49] LABS: Appearance,Urine Clear (Clear); Bilirubin,Urine Negative (Negative); Blood,Urine Negative (Negative); Color,Urine Yellow; Glucose,Urine (UA) Negative (Negative); Ketones,Urine Negative (Negative); Leukocyte Esterase,Urine Negative (Negative); Nitrite,Urine Negative (Negative); PH, Urine 5.5 (5.0-8.0); Protein,Urine Negative (Negative); Specific Gravity,Urine 1.024 (1.001-1.035); Urobilinogen,Urine <2.0 mg/dL (<2.0)
[2021-02-11 11:53] LABS: African American GFR (CKD) >90 (>60 ml/min/1.73 sqM); Anion Gap 7 mmol/L; Blood Urea Nitrogen 19 mg/dL (9-20); Calcium 10.1 mg/dL (8.4-10.2); Carbon Dioxide 26 mmol/L (22-30); Chloride 103 mmol/L (98-107); Glucose 82 mg/dL (74-99); Non-African American GFR(CKD) 79 (>60 ml/min/1.73 sqM); Potassium 4.4 mmol/L (3.5-5.1); Sodium 136 mmol/L (137-145)
== END | disposition home or self-care (01) ==
LOC: LABPAT 10:03
PROVIDERS: ATTEND Orthopaedic Surgery Orthopaedic Surgery of the Spine
DX: Z01.812 Encounter for preprocedural laboratory examination (principal); M51.27 Other intervertebral disc displacement, lumbosacral region; Z01.810 Encounter for preprocedural cardiovascular examination; Z01.818 Encounter for other preprocedural examination
CPT/HCPCS: 36415; 71046; 80048; 81003; 85025; 85610; 85730

== ENCOUNTER → 2021-03-11 | Outpatient (CLI) | payer BC ==
[2021-03-11 10:47] LABS: Basophils # (A) 0.1 k/uL (0-0.2); Basophils % (A) 1 %; Eosinophils # (A) 0.6 k/uL (0-0.7); Eosinophils % (A) 5 %; HCT 42.5 % (39.0-53.0); HGB 14.7 gm/dL (13.0-17.5); Lymphocytes # (A) 3.4 k/uL (1.0-4.8); Lymphocytes % (A) 32 %; MCH 32.6 pg (25.0-35.0); MCHC 34.7 g/dL (31.0-37.0); Mean Platelet Volume 6.9; Monocytes # (A) 0.6 k/uL (0-1.0); Monocytes % (A) 5 %; Neutrophils # (A) 5.9 k/uL (1.3-7.7); Neutrophils % (A) 55 %; Platelet Count 298 k/uL (150-450); RBC 4.52 m/uL (4.30-5.90); RDW 13.3 % (11.5-15.5); WBC 10.7 k/uL (3.8-10.6)
[2021-03-11 11:07] LABS: African American GFR (CKD) >90 (>60 ml/min/1.73 sqM); Anion Gap 5 mmol/L; Blood Urea Nitrogen 18 mg/dL (9-20); Carbon Dioxide 26 mmol/L (22-30); Chloride 107 mmol/L (98-107); Glucose 107 mg/dL (74-99); Non-African American GFR(CKD) >90 (>60 ml/min/1.73 sqM); Potassium 4.6 mmol/L (3.5-5.1); Sodium 138 mmol/L (137-145)
[2021-03-11 11:29] LABS: INR 0.9 (<1.2); Partial Thromboplastin Time 23.2 sec (22.0-30.0); Prothrombin Time 9.8 sec (9.0-12.0)
[2021-03-11 12:07] LABS: Appearance,Urine Clear (Clear); Bilirubin,Urine Negative (Negative); Blood,Urine Trace (Negative); Color,Urine Yellow; Glucose,Urine (UA) Negative (Negative); Ketones,Urine Negative (Negative); Leukocyte Esterase,Urine Negative (Negative); Mucus,Urine Occasional /hpf; Nitrite,Urine Negative (Negative); Protein,Urine Trace (Negative); RBC,Urine 5 /hpf (0-5); Urobilinogen,Urine <2.0 mg/dL (<2.0); WBC,Urine 1 /hpf (0-5)
== END | disposition home or self-care (01) ==
LOC: LABPAT 09:45
PROVIDERS: ATTEND Orthopaedic Surgery Orthopaedic Surgery of the Spine
DX: Z01.812 Encounter for preprocedural laboratory examination (principal); M51.9 Unspecified thoracic, thoracolumbar and lumbosacral intervertebral disc disorder
CPT/HCPCS: 80048; 81001; 85025; 85610; 85730; 87070

== ENCOUNTER 2021-03-19 07:14 | Observation (INO) | payer BC ==
[2021-03-14 13:16] VITALS: BMI 25.8
[~2021-03-19 07:14] MED LIST changes: +DEXAMETHASONE SOD PHOSPHATE 4 MG/ML 1 ML VIAL IV ONE; +HYDROmorphone 0.5 MG/0.5 ML SYRINGE IVP PRN; -LACTATED RINGERS 1,000 ML IV SCH; +LIDOCAINE 1% (10MG/ML) FOR IV START INTRADERMA PRN; +ONDANSETRON 4 MG/2 ML VIAL IVP ONE; +SCOPOLAMINE 1.5MG/72HR PATCH TRANSDERM ONE; +ceFAZolin 1,000 MG in SODIUM CHLORIDE 0.9% IRRIGATIO 1,000 ML IRRIGATION PRN
[2021-03-19] MEDS: LACTATED RINGERS 1,000 ML IV SCH (07:56)
[2021-03-19] MEDS ORDERED: HYDROmorphone (PF) 1 MG/ML ONE (08:24)
[2021-03-19] MEDS ORDERED: fentaNYL (PF) 50 MCG/ML 2 ML AMP ONE (08:24)
[2021-03-19] MEDS ORDERED: GLYCOPYRROLATE 0.2 MG/ML 2 ML VIAL ONE (08:24)
[2021-03-19] MEDS ORDERED: NEOSTIGMINE 1 MG/ML 10 ML VIAL ONE (08:24)
[2021-03-19] MEDS ORDERED: KETAMINE 10 MG/ML 20 ML VIAL ONE (08:24)
[2021-03-19] MEDS ORDERED: SUCCINYLCHOLINE CHLORIDE 100 MG/5 ML SYR IV ONE (08:24)
[2021-03-19] MEDS ORDERED: WATER FOR INJECTION, STERILE 10 ML VIAL IV ONE (08:24)
[2021-03-19] MEDS ORDERED: PROPOFOL 10 MG/ML 20 ML VIAL IV ONE (08:24)
[2021-03-19] MEDS ORDERED: ROCURONIUM 10 MG/ML (5 ML VIAL) IV ONE (08:24)
[2021-03-19] MEDS ORDERED: MIDAZOLAM 2 MG/2 ML VIAL ONE (08:24)
[2021-03-19] MEDS ORDERED: ePHEDrine SULFATE/0.9% NACL/PF 50 MG/5 ML SYRINGE IV ONE (08:24)
[2021-03-19] MEDS ORDERED: LIDOCAINE 1% INJ 10MG/ML (20 ML MDV) ONE (08:24)
[2021-03-19] MEDS ORDERED: PHENYLEPHRINE-0.9% NACL SYG 1,000 MCG/10 ML SYRINGE ONE (08:24)
[2021-03-19] MEDS ORDERED: GELATIN SPONGE,ABSORB (LARGE) 1 EACH SPONGE TOPICAL ONE (08:31)
[2021-03-19] MEDS ORDERED: THROMBIN (BOVINE) 5,000 UNIT VIAL TOPICAL ONE (08:32)
[2021-03-19] MEDS ORDERED: LIDOCAINE 1%-EPI 1:100,000 20 ML VIAL SQ ONE ×2 (08:32→09:04)
[2021-03-19] MEDS ORDERED: BUPIVACAINE (PF) 0.25% 30 ML VIAL SQ ONE ×2 (08:33→09:04)
[2021-03-19] MEDS ORDERED: LACTATED RINGERS 1,000 ML IV ONE (09:25)
[2021-03-19] MEDS ORDERED: ACETAMINOPHEN TAB 325 MG TAB PO PRN (11:35)
[2021-03-19] MEDS ORDERED: HYDROmorphone 1 MG/ML 1 ML SYRINGE IVP PRN (11:35)
[2021-03-19] MEDS ORDERED: traMADol 50 MG TAB PO PRN (11:35)
[2021-03-19] MEDS ORDERED: BENZOCAINE/MENTHOL LOZENG 1 EACH LOZENGE MUCOUS MEM PRN (11:35)
[2021-03-19] MEDS ORDERED: HYDROcodone/APAP 5-325MG 1 EACH TAB PO PRN (11:35)
[2021-03-19] MEDS ORDERED: CYCLOBENZAPRINE 10 MG TAB PO PRN (11:35)
[2021-03-19] MEDS ORDERED: MAGNESIUM HYDROXIDE 2,400 MG/10 ML CUP PO PRN (11:35)
[2021-03-19] MEDS ORDERED: ONDANSETRON 4 MG/2 ML VIAL IVP PRN (11:35)
[2021-03-19] MEDS ORDERED: IV FLUID CONTINUATION 200 ML IV ONE ×2 (11:38)
--- NOTE | 2021-03-19 11:47 | P.OP ---
Date of Procedure: 03/19/21 Preoperative Diagnosis: Recurrent disc herniation L5-S1 with massive extruded disc, history of prior laminectomy discectomy L5-S1, left lower extremity weakness, left lower extremity radiculopathy, disc degeneration, low back pain Postoperative Diagnosis: Same Anesthesia: GETA Pathology: none sent Condition: stable Disposition: PACU Description of Procedure: DESCRIPTION OF PROCEDURE(S): BRIEF OPERATIVE NOTE Preoperative Diagnosis: Recurrent disc herniation L5-S1 with massive extruded disc, history of prior laminectomy discectomy L5-S1, left lower extremity weakness, left lower extremity radiculopathy, disc degeneration, low back pain Postoperative Diagnosis:Recurrent disc herniation L5-S1 with massive extruded disc, history of prior laminectomy discectomy L5-S1, left lower extremity weakness, left lower extremity radiculopathy, disc degeneration, low back pain Procedure: Revision Laminectomy and decompression L5-S1 Minimally invasive Posterior lateral decompression and facet fusion L5-S1 Minimally invasive Transforaminal lumbar interbody fusion for a 360 fusion L5-S1 Revision Discectomy for decompression L5-S1 Placement of interbody graft L5-S1 Local autogenous bone grafting Use of Cell Saver Aspiration of bone marrow aspirate for use in adjunct of bone grafting Use of bone graft extenders Surgeon: Dr. Enciso Credit Analyst: Taran MONTOYA who is present throughout the entire the case persistence during positioning, dissection, exposure, visualization, and all crucial elements of the case as well as closure. Anesthesia: General anesthesia Estimated blood loss:Approximately 100 mL Complications: None apparent Components implanted:K2M minimally invasive Mantador pedicle screw system with 6.5 mm screws with 8 mm Ragland interbody cage with bio4 and DBX bone putty to supplemental local autogenous bone graft and bone marrow aspirate Disposition: To recovery room in good stable condition. OPERATIVE INDICATIONS The patient has daily severe issues in their lower back and lower extremities. he had had a disc herniation in the past with extruded fragment at L5-S1 with severe left lower extremity radiculopathy. He had previously undergone laminectomy decompression with discectomy and had very good results. However these were somewhat short-lived as he had large recurrent disc herniation at L5- S1. There was massive extrusion of disc fragments and with recurrence he is not having any benefit with conservative treatment. The patient has been through conservative treatment. We discussed various treatment options including surgery,we discussed the possibility of revision decompression versus the possibility of revision decompression with fusion, and the patient wishes to proceed with surgery We discussed the risk, patient's alternatives and benefits of surgery including but not limited to, risk of bleeding risk of infection, risk of need for further surgery, risk of decreased, loss of motion, muscle function, malunion nonunion, hardware failure, nerve damage, paralysis, heart attack, blindness and . OPERATIVE SUMMARY After discussing all the risks, patient alternatives and benefits at length, the patient elected to proceed with surgical intervention, signed informed consent, and presented for their procedure. The patient was seen and examined in the preoperative holding area and the surgical site was marked. The patient was given antibiotics and brought to the operating room. The patient was sedated and intubated by anesthesia in standard fashion. The patient was positioned on to the operating room table in a prone position on the appropriate frame which was well-padded and well molded. We were careful to pad any bony prominences and pressure points. We were careful to maintain the patient's cervical spine and good neutral alignment and position throughout. The patient was prepped and draped in a normal standard fashion. An appropriate timeout and keystone protocol performed. We were able to proceed with the surgery. The local wound area was infiltrated with local anesthetic. I was able utilize C-arm guidance to establish appropriate position over the pedicles bilaterally at the appropriate levels At L5-S1. With the appropriate levels confirmed was able to make small stab incisions over the appropriate pedicle sites bilaterally. Utilizing C-arm in his house able to establish a Jamshidi needle over the lateral aspect of the pedicle and advanced the trocar into the pedicle being careful not to breech superiorly inferiorly medially or laterally. Position was confirmed regularly with AP and lateral images on C- arm. I was able to establish the trocar into the pedicle appropriately into the posterior aspect of the vertebral body bilaterally at the appropriate levels. This was done at each of the pedicle positions and each of the vertebrae At L5- S1 bilaterally. I was able place the guidewire into the trocar and into the vertebral body appropriately under C-arm guidance. Dissection was taken down over the wire to the appropriate starting position for the screw placed. The appropriate length screw was chosen, threaded over the guidewire and screwed appropriately into the pedicle and vertebral body under C-arm guidance in excellent alignment and position with good bony purchase. This is done at each of the screw sites at the appropriate levels At L5-S1. With the screws intact I extended the incision to connect the screw hole sites on the most symptomatic side On the left. I dissected down to establish access over the pars and lamina to the base of the spinous process. I was able to expose the facet joint. The capsule the facet was taken down and showed some facet arthrosis at the joint. I had to do revision laminectomy and decompression at this point. I was able to use a combination of curettes and Kerrison rongeurs and a high-speed drill to take down the facet joint and do a facetectomy. Partial laminectomy was also performed. I was able get excellent foraminal decompression and central decompression with undermining across midline to perform a laminectomy centrally and contralaterally. there was massive amounts disc herniation which had extruded hammer causing severe left sided stenosis at the left paracentral area and at the neural foramen. I was able to remove massive portions of extruded disc herniation. I was able get good central decompression. The ligamentum flavum was taken down to further decompress centrally and at bilateral neural foramen. I was able to expose the disc space and visualize the traversing nerve root. I was able to establish a annulotomy at the appropriate level protecting soft tissue and neural structures, which allowed further discectomy and decompression. Note was made of some severe disc desiccation and disc loss at the disc. I performed a complete discectomy with a combination of curettes and rasps and scrapers. I was able get good endplate preparation at the disc space. I sized for the appropriate size interbody spacer protecting the soft tissue and neural structures. The wound was copiously irrigated and suctioned dry. There is no evidence of any dural tear or leak. I was able to pack the disc space with local autogenous bone graft as well as a small amount of bone graft which was also placed into the interbody cage itself. Protecting the soft tissue structures and neural structures I was able place the interbody cage in good alignment and good position with good fit and fill at the interbody space. His issues was confirmed with C-arm guidance. Good hemostasis maintained. There is no evidence of any dural tear or leak. The wound was irrigated and suctioned dry. With the hardware intact, intraoperative C-arm imaging was again taken which showed good alignment and position of the hardware at the appropriate levelsof L5-S1 . We were then able to measure, contour and place the rods and appropriate hardware bilaterally. I was able to place capcrews, tighten them down, and torque them with the torque screwdriver appropriately. With this intact I was able to place the local autogenous bone graft with additional bone graft enhancer as necessary into the posterior lateral gutters over the decorticated transverse processes. The remainder of the bone graft was placed over the facet joint on the contralateral side after taking down the facet joint capsule. With the bone graft intact, a stable construct, and good decompression at the appropriate levels, we were able to proceed with closure. Good hemostasis was maintained. There is no evidence of dural tear or leak. The fascia was closed for a watertight closure. he subcuticular tissue was closed with absorbable suture. The wound was cleaned and dried and dressed with the appropriate dressing. The drapes were broken down. The patient was gently rolled back onto their hospital bed being careful to maintain their cervical spine and good neutral alignment and position. They were woken up by anesthesia, extubated, and brought to the recovery room in good stable condition. The patient will be admitted to the hospital for appropriate postoperative care, medical management and monitoring. We will continue to follow them closely about the postoperative course.
[2021-03-19] MEDS ORDERED: SODIUM CHLORIDE 0.9% 1,000 ML IV ONE ×2 (12:40)
--- NOTE | 2021-03-19 13:41 | XR ---
EXAMINATION TYPE: XR lumbar spine 2 or 3V DATE OF EXAM: 03/19/2021 COMPARISON: NONE HISTORY: Lumbar fusion TECHNIQUE: 2 nondiagnostic images scanned from the procedure were submitted for review. FINDINGS: Patient is status post lower lumbar fusion. For full details please see operative report. IMPRESSION: Patient is status post lower lumbar fusion. For full details please see operative report.
[2021-03-19] MEDS: HYDROmorphone 0.5 MG/0.5 ML SYRINGE IVP PRN ×2 (14:49→19:25)
--- NOTE | 2021-03-19 16:18 | FL ---
Fluoroscopy HISTORY: lumbar fusion 34 seconds fluoroscopy time supplied to the referring clinician. 2 intraoperative C-arm images do cument the procedure. See dictated report from orthopedic surgery.
[2021-03-19] MEDS: GABAPENTIN 100 MG CAP PO SCH ×2 (16:22→19:26)
[2021-03-19] MEDS: SODIUM CHLORIDE 0.9% 1,000 ML IV SCH (22:31)
[2021-03-20] MEDS: HYDROmorphone 0.5 MG/0.5 ML SYRINGE IVP PRN ×2 (00:27→04:29)
[2021-03-20] MEDS: SODIUM CHLORIDE 0.9% 1,000 ML IV SCH ×2 (02:30→03:56)
[2021-03-20] MEDS: GABAPENTIN 100 MG CAP PO SCH (07:56)
[2021-03-20] MEDS: LACTATED RINGERS 1,000 ML IV SCH (07:59)
[2021-03-20 08:54] LABS: African American GFR (CKD) >90 (>60 ml/min/1.73 sqM); Anion Gap 6 mmol/L; Blood Urea Nitrogen 7 mg/dL (9-20); Calcium 9.4 mg/dL (8.4-10.2); Carbon Dioxide 25 mmol/L (22-30); Chloride 103 mmol/L (98-107); Glucose 106 mg/dL (74-99); Non-African American GFR(CKD) >90 (>60 ml/min/1.73 sqM); Sodium 134 mmol/L (137-145)
[2021-03-20] MEDS ORDERED: ATORVASTATIN 80 MG TAB PO SCH (09:00)
[2021-03-20] MEDS ORDERED: SENNOSIDES-DOCUSATE SODIUM 1 EACH TAB PO SCH (09:00)
[2021-03-20] MEDS ORDERED: ASPIRIN 81 MG PO SCH (09:00)
[2021-03-20] MEDS ORDERED: lisinopriL 10 MG TAB PO SCH (09:00)
[2021-03-20] MEDS: oxyCODONE-APAP 5-325MG 1 EACH TAB PO PRN ×2 (10:02→15:07)
--- NOTE | 2021-03-20 10:20 | P.DS ---
Providers Date of admission: 03/20/21 00:57 Attending physician: Modesto Enciso Consults: 03/19/21 11:35 Consult Physician Routine Consulting Provider: Jonathan Rich Consult Reason/Comments: Medical management Do you want consulting provider notified?: Yes Primary care physician: Bre Potts [facility] Course: The patient presented on the day of admission as per their operative note. He had a large recurrent disc herniation at L5 S1 with severe stenosis and debilitating radicular symptoms with weakness. The patient went through surgical intervention yesterday for revision decompression and discectomy and fusion L5-S1. The patient feels that he is doing much better in terms of his legs. He feels his back is quite sore from his surgery. He has not yet been out of bed but is eager to start mobilizing. He denies any fevers chills. Denies any change in bowel bladder function. Physical Exam The incision site is clean dry and intact. There is no erythema no drainage. There is no purulence no evidence of infection. There is some diffuse swelling but there is no erythema. Abdomen soft and nontender. Chest has good excursion with deep inspiration and expiration. The patient has active and passive range of motion intact at the upper and lower extremities. There is no acute change in neurologic status. He has sustained dorsal flexion plantar flexion and EHL intact. His thighs and calves are soft and nontender. Hospital Course Postoperative day #1 status post revision laminectomy and discectomy L5-S1 with fusion L5-S1 for recurrent disc herniation area the patient had a massive disc herniation with severe radiculopathy and some weakness at his lower extremity is. Lower extremities are doing much better today but is still having some back pain. If he is able to tolerate oral medications and mobilized he would like to try to go home today. I think that is reasonable as long as his oral medications are controlling his symptoms and he is able to mobilize independen tly to the bathroom in and out of bed. Otherwise she should stay overnight for continued pain control and training for mobility. The patient has been making good progress postoperatively. They have completed the prophylactic antibiotics without any signs or symptoms of infection. The patient has been able to advance their diet, and is tolerating diet adequately. The pain was initially controlled with IV medications and will hopefully be controlled appropriately with oral medications. The patient should be able to increase their mobilization. The patient has progressed appropriately. I think they are in good stable condition for discharge today if he can control his pain well with oral medications and mobilized appropriately. Otherwise we will have him stay overnight for further medical management and care. They will be sent home with appropriate prescriptions. I answered their questions to the best of my ability in a language that they can understand and they are agreeable with the plan. They will follow up as directed. Patient Condition at Discharge: Fair Plan - Discharge Summary Discharge Rx Participant: Yes New Discharge Prescriptions: New oxyCODONE HCL/ACETAMINOPHEN [Percocet 5-325 mg] 1 tab PO Q6HR PRN 7 Days #28 tab PRN Reason: Pain traMADol HCL 50 mg PO Q6HR PRN #24 tablet PRN Reason: Pain No Action lisinopriL [Zestril] 10 mg PO DAILY Atorvastatin [Lipitor] 80 mg PO DAILY Aspirin 81 mg PO DAILY Gabapentin [Neurontin] 100 mg PO TID Diclofenac Sodium [Voltaren] 75 mg PO DAILY Discharge Medication List lisinopriL [Zestril] 10 mg PO DAILY 06/15/18 [History] Atorvastatin [Lipitor] 80 mg PO DAILY 03/08/19 [History] Aspirin 81 mg PO DAILY 06/08/19 [History] Diclofenac Sodium [Voltaren] 75 mg PO DAILY 03/14/21 [History] Gabapentin [Neurontin] 100 mg PO TID 03/14/21 [History] oxyCODONE HCL/ACETAMINOPHEN [Percocet 5-325 mg] 1 tab PO Q6HR PRN 7 Days #28 tab 03/20/21 [Rx] traMADol HCL 50 mg PO Q6HR PRN #24 tablet 03/20/21 [Rx] Follow up Appointment(s)/Referral(s): Modesto Enciso DO [Doctor of Osteopathic Medicine] - 2 Weeks Activity/Diet/Wound Care/Special Instructions: Keep site clean. May shower with waterproof Tegaderm intact. Do not soak in a tub. After 72 hours postoperatively, patient May remove dressing and then may shower with area uncovered. Leave glue intact and allow it to fray off on its own. May ambulate as tolerated. Avoid heavy or rigorous activity. No repetitive bending twisting or lifting. No overhead work. Discharge Disposition: HOME SELF-CARE
[2021-03-20 12:15] LABS: Basophils # (A) 0.06 X 10*3/uL (0.00-0.10); Basophils % (A) 0.4 %; Eosinophils # (A) 0.03 X 10*3/uL (0.04-0.35); Eosinophils % (A) 0.2 %; HCT 35.3 % (39.6-50.0); HGB 12.2 g/dL (13.0-17.0); Lymphocytes # (A) 1.54 X 10*3/uL (0.90-5.00); Lymphocytes % (A) 9.3 %; MCH 32.7 pg (27.0-32.0); MCHC 34.6 g/dL (32.0-37.0); MCV 94.6 fL (80.0-97.0); Mean Platelet Volume 10.3 fL (9.5-12.2); Monocytes # (A) 1.44 X 10*3/uL (0.20-1.00); Monocytes % (A) 8.7 %; Neutrophils # (A) 13.46 X 10*3/uL (1.80-7.70); Neutrophils % (A) 80.8 %; Platelet Count 263 X 10*3/uL (140-440); RBC 3.73 X 10*6/uL (4.40-5.60); RDW 13.4 % (11.5-14.5); WBC 16.63 X 10*3/uL (4.50-10.00)
[2021-03-20 14:21] VITALS: BP 107/65; PULSE 80; RESP 18; TEMP 99.1
--- NOTE | 2021-03-20 17:26 | P.CONS ---
History of Present Illness - Reason for Consult Hypotension, leukocytosis, hyponatremia - History of Present Illness Patient is a pleasant 50-year-old male admitted for L5-S1 severe stenosis and history debilitating radicular symptoms for which patient underwent decompression and discectomy and fusion of L5-S1. Patient was incidentally last night his pain is currently improving at this time. Patient is hypotensive. Patient does have history of hypertension and does take lisinopril at home. She is also on gabapentin. Patient is mildly hyponatremic at 134 probably from SIADH from pain patient does have leukocytosis without any evidence of infection clinically. REVIEW OF SYSTEMS: CONSTITUTIONAL: No fever, no malaise, no fatigue. HEENT: No recent visual problems or hearing problems. Denied any sore throat. CARDIOVASCULAR: No chest pain, orthopnea, PND, no palpitations, no syncope. PULMONARY: No shortness of breath, no cough, no hemoptysis. GASTROINTESTINAL: No diarrhea, no nausea, no vomiting, no abdominal pain. NEUROLOGICAL: No headaches, no weakness, no numbness. HEMATOLOGICAL: Denies any bleeding or petechiae. GENITOURINARY: Denies any burning micturition, frequency, or urgency. MUSCULOSKELETAL/RHEUMATOLOGICAL: Denies any joint pain, swelling, or any muscle pain. ENDOCRINE: Denies any polyuria or polydipsia. The rest of the 14-point review of systems is negative. PHYSICAL EXAMINATION: GENERAL: The patient is alert and oriented x3, not in any acute distress. Well developed, well nourished. HEENT: Pupils are round and equally reacting to light. EOMI. No scleral icterus. No conjunctival pallor. Normocephalic, atraumatic. No pharyngeal erythema. No thyromegaly. CARDIOVASCULAR: S1 and S2 present. No murmurs, rubs, or gallops. PULMONARY: Chest is clear to auscultation, no wheezing or crackles. ABDOMEN: Soft, nontender, nondistended, normoactive bowel sounds. No palpable organomegaly. MUSCULOSKELETAL: No joint swelling or deformity. EXTREMITIES: No cyanosis, clubbing, or pedal edema. NEUROLOGICAL: Gross neurological examination did not reveal any focal deficits. SKIN: No rashes. Assessment and plan -Hypotension: Expected in perioperative period I recommended that patient hold off on antidepressant medication at least for next couple days and check the blood pressure starts going up location patient can resume his lisinopril if patient cannot get the blood pressure medication I recommended him to hold of his antidepressive medication until seen by primary care physician within a week -Hyponatremia euvolemic hyponatremia secondary to pain -Leukocytosis reactive secondary to surgery -Lumbar radiculopathy for which patient is on gabapentin -Hyperlipidemia -Hypertension management as mentioned above -Coronary artery disease with cardiac catheterization and stent in the past. Patient can be discharged from medical perspective DVT prophylaxis: Past Medical History Past Medical History: Hyperlipidemia, Hypertension, Myocardial Infarction ([place]) Additional Past Medical History / Comment(s): 'silent heart attack', Last Myocardial Infarction Date:: 10/11/2017 History of Any Multi-Drug Resistant Organisms: None Reported Past Surgical History: Appendectomy, Back Surgery, Heart Catheterization With Stent, Hernia Repair, Tonsillectomy Additional Past Surgical History / Comment(s): one cardiac stent, cyst removed from back of left leg, laminectomy Past Anesthesia/Blood Transfusion Reactions: No Reported Reaction Date of Last Stent Placement:: 10/11/17 Past Psychological History: No Psychological Hx Reported Smoking Status: Former smoker Past Alcohol Use History: Occasional Additional Past Alcohol Use History / Comment(s): quit smoking 3 weeks ago, started smoking age 19 Past Drug Use History: Marijuana - Past Family History Father Family Medical History: Myocardial Infarction ([place]) Additional Family Medical History / Comment(s): CABG Mother Family Medical History: No Reported History Additional Family Medical History / Comment(s): Mother is healthy Medications and Allergies Home Medications Medication Instructions Recorded Confirmed Type lisinopriL [Zestril] 10 mg PO DAILY 06/15/18 03/19/21 History Atorvastatin [Lipitor] 80 mg PO DAILY 03/08/19 03/19/21 History Aspirin 81 mg PO DAILY 06/08/19 03/19/21 History Diclofenac Sodium [Voltaren] 75 mg PO DAILY 03/14/21 03/19/21 History Gabapentin [Neurontin] 100 mg PO TID 03/14/21 03/19/21 History oxyCODONE HCL/ACETAMINOPHEN 1 tab PO Q6HR PRN 7 Days #28 tab 03/20/21 Rx [Percocet 5-325 mg] traMADol HCL 50 mg PO Q6HR PRN #24 tablet 03/20/21 Rx Allergies Allergy/AdvReac Type Severity Reaction Status Date / Time amoxicillin Allergy Rash/Hives Verified 03/14/21 13:04 Physical Exam Vitals: Vital Signs Temp Pulse Resp BP Pulse Ox 03/20/21 14:20 99.1 F 80 18 107/65 97 03/20/21 08:00 17 03/20/21 07:34 99.2 F 77 17 112/65 95 03/20/21 02:19 99.7 F H 73 18 96/54 96 03/19/21 20:01 98.4 F 63 20 99/60 95 Intake and Output 03/20/21 03/20/21 03/20/21 06:59 14:59 22:59 Output Total 1700 Balance -1700 Output: Urine 1700 Other: Voiding Method Indwelling Catheter # Voids 1 Results CBC & Chem 7: 03/20/21 07:58 03/20/21 07:58 Labs: Abnormal Lab Results - Last 24 Hours (Table) 03/20/21 03/20/21 Range/Units 07:58 07:58 WBC 16.63 H (4.50-10.00) X 10*3/uL RBC 3.73 L (4.40-5.60) X 10*6/uL Hgb 12.2 L (13.0-17.0) g/dL Hct 35.3 L (39.6-50.0) % MCH 32.7 H (27.0-32.0) pg Immature Gran # 0.10 H (0.00-0.04) X 10*3/uL Neutrophils # 13.46 H (1.80-7.70) X 10*3/uL Monocytes # 1.44 H (0.20-1.00) X 10*3/uL Eosinophils # 0.03 L (0.04-0.35) X 10*3/uL Sodium 134 L (137-145) mmol/L BUN 7 L (9-20) mg/dL Glucose 106 H (74-99) mg/dL
== END 2021-03-20 15:25 | disposition home or self-care (01) ==
LOC: OR 07:14 → 4SSUR 12:44 → OR 03-20 00:57 → 4SSUR 03-20 00:57
PROVIDERS: ADMIT Orthopaedic Surgery Orthopaedic Surgery of the Spine; ATTEND Orthopaedic Surgery Orthopaedic Surgery of the Spine
DX: M51.27 Other intervertebral disc displacement, lumbosacral region (principal); M48.07 Spinal stenosis, lumbosacral region; M51.17 Intervertebral disc disorders with radiculopathy, lumbosacral region; M47.26 Other spondylosis with radiculopathy, lumbar region; E78.5 Hyperlipidemia, unspecified; E03.9 Hypothyroidism, unspecified; I25.10 Atherosclerotic heart disease of native coronary artery without angina pectoris; I25.2 Old myocardial infarction; I95.9 Hypotension, unspecified; E87.1 Hypo-osmolality and hyponatremia; D72.829 Elevated white blood cell count, unspecified; Z79.82 Long term (current) use of aspirin; Z79.1 Long term (current) use of non-steroidal anti-inflammatories (NSAID); Z79.899 Other long term (current) drug therapy; Z88.0 Allergy status to penicillin; Z95.5 Presence of coronary angioplasty implant and graft; Z90.49 Acquired absence of other specified parts of digestive tract; Z87.891 Personal history of nicotine dependence; Z98.890 Other specified postprocedural states; Z82.49 Family history of ischemic heart disease and other diseases of the circulatory system
CPT/HCPCS: 97161; 86900; 86901; 80048; 85025; 86850; 72100; 22630; 22632; 22853; 20936; 22840; G0378; C1713; C1762; J2250; J2710; J0690 ×3; J2405; J2001; J3010; J1170 ×4; J2370; J0330; J2704

== ENCOUNTER 2023-02-09 05:46 | Emergency (ER) | payer BC ==
[2023-02-09] MEDS ORDERED: IPRATROPIUM-ALBUTEROL 3 ML NEB INHALATION STA (06:13)
--- NOTE | 2023-02-09 06:30 | ED ---
URI HPI - General Chief Complaint: Upper Respiratory Infection Stated Complaint: Cough,Vomitting,Chest Tightness Time Seen by Provider: 02/09/23 05:56 Source: patient, RN notes reviewed Mode of arrival: wheelchair Limitations: no limitations - History of Present Illness Initial Comments: This is a 52-year-old male who presents to the emergency department for coughing, congestion, vomiting, and chest pain for the last 4 days. He does have a history of heart attacks, however he states that this chest pain feels more like it is related to an upper respiratory infection from all of the coughing. He last threw up yesterday, and is not currently feeling nauseous. Does report some difficulty breathing. Denies any fevers, chills, or sick contacts. Denies any fevers, chills, sore throat, palpitations, abdominal pain, diarrhea, back pain, or headaches. MD Complaint: cough, nasal congestion Onset/Timin -: days(s) - Related Data Home Medications Medication Instructions Recorded Confirmed lisinopriL [Zestril] 10 mg PO DAILY 06/15/18 03/19/21 Atorvastatin [Lipitor] 80 mg PO DAILY 03/08/19 03/19/21 Aspirin 81 mg PO DAILY 06/08/19 03/19/21 Diclofenac Sodium [Voltaren] 75 mg PO DAILY 03/14/21 03/19/21 Gabapentin [Neurontin] 100 mg PO TID 03/14/21 03/19/21 Previous Rx's Medication Instructions Recorded oxyCODONE HCL/ACETAMINOPHEN 1 tab PO Q6HR PRN 7 Days #28 tab 03/20/21 [Percocet 5-325 mg] traMADol HCL 50 mg PO Q6HR PRN #24 tablet 03/20/21 Ketorolac [Toradol] 10 mg PO Q6HR PRN #12 tab 02/09/23 Promethazine/Dextromethorphan 5 ml PO Q4-6H PRN #473 ml 02/09/23 [Promethazine-Dm Syrup] predniSONE 50 mg PO DAILY 5 Days #5 tab 02/09/23 Allergies Allergy/AdvReac Type Severity Reaction Status Date / Time amoxicillin Allergy Rash/Hives Verified 02/09/23 05:50 Review of Systems ROS Statement: Those systems with pertinent positive or pertinent negative responses have been documented in the HPI. ROS Other: All systems not noted in ROS Statement are negative. Past Medical History Past Medical History: Chest Pain / Angina, Hyperlipidemia, Hypertension, Myocardial Infarction ([place]) Additional Past Medical History / Comment(s): 'silent heart attack', bruises easily, constipation, Last Myocardial Infarction Date:: 10/11/2017 History of Any Multi-Drug Resistant Organisms: None Reported Past Surgical History: Appendectomy, Heart Catheterization With Stent, Hernia Repair, Tonsillectomy Additional Past Surgical History / Comment(s): one cardiac stent, cyst removed from back of left leg, Past Anesthesia/Blood Transfusion Reactions: No Reported Reaction Date of Last Stent Placement:: 10/11/17 Past Psychological History: No Psychological Hx Reported Smoking Status: Current every day smoker Past Alcohol Use History: Occasional Past Drug Use History: Marijuana - Past Family History Father Family Medical History: Myocardial Infarction ([place]) Additional Family Medical History / Comment(s): CABG Mother Family Medical History: No Reported History Additional Family Medical History / Comment(s): Mother is healthy General Exam Limitations: no limitations General appearance: alert, in no apparent distress Head exam: Present: atraumatic, normocephalic, normal inspection Respiratory exam: Present: normal lung sounds bilaterally. Absent: respiratory distress, wheezes, rales, rhonchi, stridor Cardiovascular Exam: Present: regular rate, normal rhythm, normal heart sounds. Absent: systolic murmur, diastolic murmur, rubs, gallop, clicks Neurological exam: Present: alert, oriented X3, CN II-XII intact Psychiatric exam: Present: normal affect, normal mood Skin exam: Present: warm, dry, intact, normal color. Absent: rash Course Vital Signs 02/09/23 02/09/23 02/09/23 05:51 06:03 06:28 Temperature 97.9 F Pulse Rate 60 60 Respiratory 14 14 Rate Blood Pressure 123/83 O2 Sat by Pulse 98 Oximetry 02/09/23 02/09/23 06:33 08:46 Temperature 98.0 F Pulse Rate 62 54 L Respiratory 16 Rate Blood Pressure 123/75 O2 Sat by Pulse 98 Oximetry Medical Decision Making - Medical Decision Making This is a 52-year-old male who presents to the emergency department for coughing, congestion, and chest pain. Was pt. sent in by a medical professional or institution? @ -No Did you speak to anyone other than the patient for history? @ -No Did you review nursing and triage notes? @ -Yes, and I agree, it is accurate with regards to the patient's symptoms. Were old charts reviewed? @ -No Differential Diagnosis? @ -Differential Chest Pain: Stable Angina, Unstable Angina, STEMI, NSTEMI Aortic Dissection, Pneumothorax, Musculoskeletal, Esophageal Spasm GERD, Cholecystitis, Pancreatitis, Zoster, this is not meant to be an all-inclusive list. -Differential Cough: Influenza, Covid, RSV, croup, allergic rhinitis, GERD, pneumonia, bronchitis, COPD, viral pharyngitis, streptococcal pharyngitis, this is not meant to be an all-inclusive list. EKG interpreted by me (3pts min.)? @ -EKG interpreted by me demonstrating the following: Sinus bradycardia. Ventricular rate 44 beats per minute, TX interval 119 ms, QRS duration 89 ms, QTC 386 ms. Pt has a long standing hx of bradycardia. X-rays interpreted by me (1pt min.)? @ -Chest x-ray obtained, my interpretation identifies no localized consolidations or infiltrates. CT interpreted by me (1pt min.)? @ -Not obtained U/S interpreted by me (1pt. min.)? @ -Not obtained What testing was considered but not performed? (CT, X-rays, U/S, labs)? Why? @ -None What meds were considered but not given? Why? @ -None Did you discuss the management of the patient with other professionals? @ -No Did you reconcile home meds? @ -No Was smoking cessation discussed for >3mins.? @ -No Was critical care preformed (if so, how long)? @ -No Were there social determinants of health that impacted care today? How? (Homelessness, low income, unemployed, alcoholism, drug addiction, transportation, low edu. Level, literacy, decrease access to med. care, [facility], rehab)? @ -No Was there de-escalation of care discussed even if they declined? (Discuss DNR or withdrawal of care, Hospice)? @ -No What co-morbidities impacted this encounter? (DM, HTN, Smoking, COPD, CAD, Cancer, CVA, Hep., AIDS, mental health diagnosis, sleep apnea, morbid obesity)? @ -HLD, HTN, Hx of [place] Was patient admitted / discharged? @ -Discharged. While symptoms are most likely related to an upper respiratory infection, discussed with the patient that given his cardiac history with reported chest pain, we cannot rule out other etiologies. Patient requests we proceed with blood work to check cardiac markers. I'm agreeable to this. Lab work obtained revealing minor leukocytosis. Troponin negative. COVID, influenza, and RSV testing negative. Chest x-ray reveals no acute findings. Discussed that this is most likely related to an acute upper respiratory infection. Toradol was administered for his headache. He was given a Duoneb breathing treatment, which he found mildly beneficial. Prescription for prednisone, promethazine DM cough syrup, and Toradol provided with dosing instructions reviewed. Patient is instructed to take the Toradol with Tylenol if needed and avoid any other [id number] anti-inflammatories such as ibuprofen with the Toradol. Otherwise advised continuing with supportive care. Undiagnosed new problem with uncertain prognosis? @ -None Drug Therapy requiring intensive monitoring for toxicity (Heparin, Nitro, Insulin, Cardizem)? @ -None Were any procedures done? @ -None Diagnosis/symptom? @ -Acute URI Acute, or Chronic, or Acute on Chronic? @ -Acute Uncomplicated (without systemic symptoms) or Complicated (systemic symptoms)? @ -Uncomplicated Side effects of treatment? @ -None Exacerbation, Progression, or Severe Exacerbation] @ -Not applicable Poses a threat to life or bodily function? @ -No Return precautions reviewed in depth, the patient is instructed to return to the emergency department with any new, worsening, or concerning symptoms. Patient verbalized understanding. This case was discussed in detail with the attending ED physician, Dr. Moreno. Presentation, findings, and treatment plan discussed in detail as well. - Lab Data Result diagrams: 02/09/23 06:20 02/09/23 06:20 Lab Results 02/09/23 02/09/23 02/09/23 Range/Units 06:20 06:20 06:20 WBC 10.9 H (3.8-10.6) k/uL RBC 4.55 (4.30-5.90) m/uL Hgb 14.5 (13.0-17.5) gm/dL Hct 42.5 (39.0-53.0) % MCV 93.4 (80.0-100.0) fL MCH 31.9 (25.0-35.0) pg MCHC 34.1 (31.0-37.0) g/dL RDW 12.7 (11.5-15.5) % Plt Count 257 (150-450) k/uL MPV 8.0 Neutrophils % 74 % Lymphocytes % 15 % Monocytes % 5 % Eosinophils % 3 % Basophils % 0 % Neutrophils # 8.0 H (1.3-7.7) k/uL Lymphocytes # 1.7 (1.0-4.8) k/uL Monocytes # 0.6 (0-1.0) k/uL Eosinophils # 0.3 (0-0.7) k/uL Basophils # 0.0 (0-0.2) k/uL Sodium 137 (137-145) mmol/L Potassium 3.8 (3.5-5.1) mmol/L Chloride 108 H (98-107) mmol/L Carbon Dioxide 22 (22-30) mmol/L Anion Gap 7 mmol/L BUN 15 (9-20) mg/dL Creatinine 0.95 (0.66-1.25) mg/dL Est GFR (CKD-EPI)AfAm >90 (>60 ml/min/1.73 sqM) Est GFR (CKD-EPI)NonAf >90 (>60 ml/min/1.73 sqM) Glucose 126 H (74-99) mg/dL Calcium 8.5 (8.4-10.2) mg/dL Total Bilirubin 0.3 (0.2-1.3) mg/dL AST 30 (17-59) U/L ALT 27 (4-49) U/L Alkaline Phosphatase 84 (38-126) U/L Troponin I <0.012 (0.000-0.034) ng/mL Total Protein 6.2 L (6.3-8.2) g/dL Albumin 3.6 (3.5-5.0) g/dL Influenza Type A (PCR) (Not Detectd) Influenza Type B (PCR) (Not Detectd) RSV (PCR) (Not Detectd) SARS-CoV-2 (PCR) (Not Detectd) 02/09/23 Range/Units 06:20 WBC (3.8-10.6) k/uL RBC (4.30-5.90) m/uL Hgb (13.0-17.5) gm/dL Hct (39.0-53.0) % MCV (80.0-100.0) fL MCH (25.0-35.0) pg MCHC (31.0-37.0) g/dL RDW (11.5-15.5) % Plt Count (150-450) k/uL MPV Neutrophils % % Lymphocytes % % Monocytes % % Eosinophils % % Basophils % % Neutrophils # (1.3-7.7) k/uL Lymphocytes # (1.0-4.8) k/uL Monocytes # (0-1.0) k/uL Eosinophils # (0-0.7) k/uL Basophils # (0-0.2) k/uL Sodium (137-145) mmol/L Potassium (3.5-5.1) mmol/L Chloride (98-107) mmol/L Carbon Dioxide (22-30) mmol/L Anion Gap mmol/L BUN (9-20) mg/dL Creatinine (0.66-1.25) mg/dL Est GFR (CKD-EPI)AfAm (>60 ml/min/1.73 sqM) Est GFR (CKD-EPI)NonAf (>60 ml/min/1.73 sqM) Glucose (74-99) mg/dL Calcium (8.4-10.2) mg/dL Total Bilirubin (0.2-1.3) mg/dL AST (17-59) U/L ALT (4-49) U/L Alkaline Phosphatase (38-126) U/L Troponin I (0.000-0.034) ng/mL Total Protein (6.3-8.2) g/dL Albumin (3.5-5.0) g/dL Influenza Type A (PCR) Not Detected (Not Detectd) Influenza Type B (PCR) Not Detected (Not Detectd) RSV (PCR) Not Detected (Not Detectd) SARS-CoV-2 (PCR) Not Detected (Not Detectd) - Radiology Data Radiology results: report reviewed, image reviewed Disposition Clinical Impression: Acute upper respiratory infection Disposition: HOME SELF-CARE Instructions (If sedation given, give patient instructions): Upper Respiratory Infection (ED) Additional Instructions: Return to the emergency department with any new, worsening, or concerning symptoms. Take the prednisone daily for 5 days. You may take the Toradol up to every 6 hours as needed for headaches. If you choose to take this, do not take other [id number] anti-inflammatories such as ibuprofen. You may take it with Tylenol. You can take the cough medication every 4-6 hours as needed. Follow up with your primary care provider in 1-2 days. Prescriptions: predniSONE 50 mg PO DAILY 5 Days #5 tab Promethazine/Dextromethorphan [Promethazine-Dm Syrup] 5 ml PO Q4-6H PRN #473 ml PRN Reason: Cough Ketorolac [Toradol] 10 mg PO Q6HR PRN #12 tab PRN Reason: Pain Is patient prescribed a controlled substance at d/c from ED?: No Referrals: Katlyn Díaz MD [Primary Care Provider] - 1-2 days
[2023-02-09 06:48] LABS: Basophils % (A) 0 %; Eosinophils # (A) 0.3 k/uL (0-0.7); Eosinophils % (A) 3 %; HCT 42.5 % (39.0-53.0); HGB 14.5 gm/dL (13.0-17.5); Lymphocytes # (A) 1.7 k/uL (1.0-4.8); Lymphocytes % (A) 15 %; MCH 31.9 pg (25.0-35.0); MCHC 34.1 g/dL (31.0-37.0); MCV 93.4 fL (80.0-100.0); Monocytes # (A) 0.6 k/uL (0-1.0); Monocytes % (A) 5 %; Neutrophils % (A) 74 %; Platelet Count 257 k/uL (150-450); RBC 4.55 m/uL (4.30-5.90); RDW 12.7 % (11.5-15.5); WBC 10.9 k/uL (3.8-10.6)
[2023-02-09 07:00] LABS: ALT 27 U/L (4-49); AST 30 U/L (17-59); African American GFR (CKD) >90 (>60 ml/min/1.73 sqM); Albumin 3.6 g/dL (3.5-5.0); Alkaline Phosphatase 84 U/L (38-126); Anion Gap 7 mmol/L; Blood Urea Nitrogen 15 mg/dL (9-20); Calcium 8.5 mg/dL (8.4-10.2); Carbon Dioxide 22 mmol/L (22-30); Chloride 108 mmol/L (98-107); Glucose 126 mg/dL (74-99); Non-African American GFR(CKD) >90 (>60 ml/min/1.73 sqM); Potassium 3.8 mmol/L (3.5-5.1); Sodium 137 mmol/L (137-145); Total Bilirubin 0.3 mg/dL (0.2-1.3); Total Protein 6.2 g/dL (6.3-8.2)
--- NOTE | 2023-02-09 07:26 | XR ---
EXAMINATION TYPE: XR chest 2V DATE OF EXAM: 02/09/2023 COMPARISON: 02/11/2021 HISTORY: 52-year-old male cough and difficulty in breathing TECHNIQUE: PA and lateral views FINDINGS: The cardiomediastinal silhouette, aorta, and pulmonary vasculature are within normal limits. Mild alvin pical pleural-parenchymal scarring. Otherwise, lungs and pleural spaces are clear. IMPRESSION: No acute cardiopulmonary process.
[2023-02-09] MEDS ORDERED: KETOROLAC 15 MG/ML 1 ML VIAL IM STA (08:04)
[2023-02-09 08:48] VITALS: BP 123/75; PULSE 54; RESP 16; TEMP 98
== END 2023-02-09 08:48 | disposition home or self-care (01) ==
LOC: EC 05:46
DX: J06.9 Acute upper respiratory infection, unspecified (principal); I10 Essential (primary) hypertension; E78.5 Hyperlipidemia, unspecified; I25.2 Old myocardial infarction; F12.90 Cannabis use, unspecified, uncomplicated; F17.200 Nicotine dependence, unspecified, uncomplicated; Z79.899 Other long term (current) drug therapy; Z88.0 Allergy status to penicillin; Z20.822 Contact with and (suspected) exposure to COVID-19
CPT/HCPCS: 36415; 94640; 80053; 84484; 85025; 87636; 71046; 99284; 96372; J1885

== ENCOUNTER 2023-02-27 12:10 | Emergency (ER) | payer BC ==
[2023-02-27 12:14] VITALS: TEMP 98.3
[2023-02-27] MEDS ORDERED: KETOROLAC 15 MG/ML 1 ML VIAL IM STA (12:43)
[2023-02-27] MEDS ORDERED: HYDROcodone/APAP 5-325MG 1 EACH TAB PO STA (12:43)
--- NOTE | 2023-02-27 12:49 | ED ---
Extremity Problem HPI - General Chief complaint: Extremity Problem,Nontraumatic Stated complaint: Lt hip pain Time Seen by Provider: 02/27/23 12:38 Source: patient, RN notes reviewed Mode of arrival: ambulatory Limitations: no limitations - History of Present Illness Initial comments: This is a 52-year-old male who presents to the emergency department for left hip pain. States that this started a couple of days ago. Denies any known injuries. States that a little over a year ago he had back surgery due to persistent sciatica with Dr. Enciso. Symptoms had improved significantly. States that the pain he is having now feels like sciatica. He has not had back pain, but states that the pain goes from the left hip all the way down the leg. He is taking aspirin with no relief in symptoms. He is able to walk, but states that it is painful. He has an appointment with Dr. Enciso in a couple of weeks, but does not believe that he can make it that long pain [place]. Denies any fevers, chills, sore throat, cough, dyspnea, chest pain, palpitations, abdominal pain, nausea, vomiting, diarrhea, back pain, or headaches. MD Complaint: extremity pain Onset/Timin -: days(s) Location: left, lower extremity - Related Data Home Medications Medication Instructions Recorded Confirmed lisinopriL [Zestril] 10 mg PO DAILY 06/15/18 03/19/21 Atorvastatin [Lipitor] 80 mg PO DAILY 03/08/19 03/19/21 Aspirin 81 mg PO DAILY 06/08/19 03/19/21 Diclofenac Sodium [Voltaren] 75 mg PO DAILY 03/14/21 03/19/21 Gabapentin [Neurontin] 100 mg PO TID 03/14/21 03/19/21 Previous Rx's Medication Instructions Recorded oxyCODONE HCL/ACETAMINOPHEN 1 tab PO Q6HR PRN 7 Days #28 tab 03/20/21 [Percocet 5-325 mg] traMADol HCL 50 mg PO Q6HR PRN #24 tablet 03/20/21 Ketorolac [Toradol] 10 mg PO Q6HR PRN #12 tab 02/09/23 Promethazine/Dextromethorphan 5 ml PO Q4-6H PRN #473 ml 02/09/23 [Promethazine-Dm Syrup] predniSONE 50 mg PO DAILY 5 Days #5 tab 02/09/23 predniSONE 50 mg PO DAILY 5 Days #5 tab 02/27/23 traMADol HCL 50 mg PO Q6H PRN 3 Days #12 tab 02/27/23 Allergies Allergy/AdvReac Type Severity Reaction Status Date / Time amoxicillin Allergy Rash/Hives Verified 02/27/23 12:14 Review of Systems ROS Statement: Those systems with pertinent positive or pertinent negative responses have been documented in the HPI. ROS Other: All systems not noted in ROS Statement are negative. Past Medical History Past Medical History: Chest Pain / Angina, Hyperlipidemia, Hypertension, Myocardial Infarction ([place]) Additional Past Medical History / Comment(s): 'silent heart attack', bruises easily, constipation, Last Myocardial Infarction Date:: 10/11/2017 History of Any Multi-Drug Resistant Organisms: None Reported Past Surgical History: Appendectomy, Heart Catheterization With Stent, Hernia Repair, Joint Replacement, Orthopedic Surgery, Tonsillectomy Additional Past Surgical History / Comment(s): one cardiac stent, cyst removed from back of left leg, Past Anesthesia/Blood Transfusion Reactions: No Reported Reaction Date of Last Stent Placement:: 10/11/17 Past Psychological History: No Psychological Hx Reported Smoking Status: Current every day smoker Past Alcohol Use History: Occasional Past Drug Use History: Marijuana - Past Family History Father Family Medical History: Myocardial Infarction ([place]) Additional Family Medical History / Comment(s): CABG Mother Family Medical History: No Reported History Additional Family Medical History / Comment(s): Mother is healthy General Exam Limitations: no limitations General appearance: alert, in distress Head exam: Present: atraumatic, normocephalic, normal inspection Respiratory exam: Present: normal lung sounds bilaterally. Absent: respiratory distress, wheezes, rales, rhonchi, stridor Cardiovascular Exam: Present: regular rate, normal rhythm, normal heart sounds. Absent: systolic murmur, diastolic murmur, rubs, gallop, clicks Extremities exam: Present: other (Tenderness to palpation over the left greater trochanter. Full active and passive range of motion of the left lower extremity. 2+ DP and PT pulses.) Neurological exam: Present: alert, oriented X3, CN II-XII intact Psychiatric exam: Present: normal affect, normal mood Skin exam: Present: warm, dry, intact, normal color. Absent: rash Course Vital Signs 02/27/23 02/27/23 12:11 14:11 Temperature 98.3 F Pulse Rate 99 49 L Respiratory 22 16 Rate Blood Pressure 129/55 117/64 O2 Sat by Pulse 98 98 Oximetry Medical Decision Making - Medical Decision Making This is a 52-year-old male who presents to the emergency department for left hip pain. Was pt. sent in by a medical professional or institution? @ -No Did you speak to anyone other than the patient for history? @ -No Did you review nursing and triage notes? @ -Yes, and I agree, it is accurate with regards to the patient's symptoms. Were old charts reviewed? @ -No Differential Diagnosis? @ -Differential Hip Pain: Fracture, dislocation, osteoarthritis, rheumatoid arthritis, septic arthritis, gout, synovitis, piriformis syndrome, bursitis, arterial occlusion, DVT, femoroacetabular inpingement, labral tear, avascular necrosis, SI joint dysfunction, this is not meant to be an all-inclusive list. EKG interpreted by me (3pts min.)? @ -Not obtained X-rays interpreted by me (1pt min.)? @ -X-ray of the lumbar spine and left hip obtained. My interpretation identifies no acute fractures or dislocations. CT interpreted by me (1pt min.)? @ -Not obtained U/S interpreted by me (1pt. min.)? @ -Not obtained What testing was considered but not performed? (CT, X-rays, U/S, labs)? Why? @ -None What meds were considered but not given? Why? @ -None Did you discuss the management of the patient with other professionals? @ -No Did you reconcile home meds? @ -No Was smoking cessation discussed for >3mins.? @ -No Was critical care preformed (if so, how long)? @ -No Were there social determinants of health that impacted care today? How? (Homelessness, low income, unemployed, alcoholism, drug addiction, transportation, low edu. Level, literacy, decrease access to med. care, [place] [facility], rehab)? @ -No Was there de-escalation of care discussed even if they declined? (Discuss DNR or withdrawal of care, Hospice)? @ -No What co-morbidities impacted this encounter? (DM, HTN, Smoking, COPD, CAD, Cancer, CVA, Hep., AIDS, mental health diagnosis, sleep apnea, morbid obesity)? @ -None Was patient admitted / discharged? @ -Discharged. X-ray of the left hip and lumbar spine obtained revealing no acute process. He was given a dose of Toradol and Anderson in the emergency department with some improvement in symptoms. Will treat the patient with a 5 day course of prednisone, which was subsequently prescribed with dosing instructions reviewed. He was also given a prescription for tramadol, which he is instructed to take sparingly when his pain is the most severe, and he is advised to avoid driving or operating machinery when taking this. Advised to take Tylenol as well for further symptomatic management. He will otherwise follow up with Dr. Enciso as scheduled. Undiagnosed new problem with uncertain prognosis? @ -None Drug Therapy requiring intensive monitoring for toxicity (Heparin, Nitro, Insulin, Cardizem)? @ -None Were any procedures done? @ -None Diagnosis/symptom? @ -Left hip pain Acute, or Chronic, or Acute on Chronic? @ -Acute Uncomplicated (without systemic symptoms) or Complicated (systemic symptoms)? @ -Uncomplicated Side effects of treatment? @ -None Exacerbation, Progression, or Severe Exacerbation] @ -Not applicable Poses a threat to life or bodily function? @ -No Return precautions reviewed in depth, the patient is instructed to return to the emergency department with any new, worsening, or concerning symptoms. Patient verbalized understanding. This case was discussed in detail with the attending ED physician, Dr. Mendez. Presentation, findings, and treatment plan discussed in detail as well. - Radiology Data Radiology results: report reviewed, image reviewed Disposition Clinical Impression: Left hip pain Disposition: HOME SELF-CARE Instructions (If sedation given, give patient instructions): Hip Pain (ED) Additional Instructions: Return to the emergency department with any new, worsening, or concerning symptoms. Take the prednisone daily for 5 days. Do not take any other anti- inflammatories such as ibuprofen or Aspirin with this. You may take it with Tylenol. Take the Anderson sparingly when your pain is the most severe and be aware that it may be sedating and you should avoid driving or operating machinery when taking this. Follow up with Dr. Enciso as scheduled. Prescriptions: predniSONE 50 mg PO DAILY 5 Days #5 tab traMADol HCL 50 mg PO Q6H PRN 3 Days #12 tab PRN Reason: Pain Is patient prescribed a controlled substance at d/c from ED?: Yes When asked, does pt state using other controlled substances?: No If prescribed controlled substance>3 days was MAPS reviewed?: Prescribed <3 Days Referrals: Katlyn Díaz MD [Primary Care Provider] - 1-2 days
--- NOTE | 2023-02-27 13:32 | XR ---
EXAMINATION TYPE: XR Hip Complete LT DATE OF EXAM: 02/27/2023 COMPARISON: None HISTORY: Pain TECHNIQUE: 2 view left hip FINDINGS: Femoral head articulates with the acetabulum. No acute fracture or dislocation is evident. Joint space is preserved. IMPRESSION: 1. No acute osseous abnormality left hip.
--- NOTE | 2023-02-27 13:33 | XR ---
EXAMINATION TYPE: XR lumbar spine 2 or 3V DATE OF EXAM: 02/27/2023 COMPARISON: None HISTORY: Pain TECHNIQUE: Three-view lumbar spine FINDINGS: There are 5 lumbar-type vertebral bodies. L1-L4 pedicles are present. L5 and S1 pedicles daily ve pedicle screws. Disc spacers present at L5-S1. Vertebral body heights are preserved. Mild posterio r disc space narrowing is present L4-5. Spondylosis is present to through L4. Note is made of vascula r calcification within the aorta. IMPRESSION: 1. Post fixation changes with a disc spacer and pedicle screws L5-S1. 2. Mild degenerative disc change L4-5.
[2023-02-27 14:13] VITALS: BP 117/64; PULSE 49; RESP 16
== END 2023-02-27 14:13 | disposition home or self-care (01) ==
LOC: EC 12:10
DX: M25.552 Pain in left hip (principal); E78.5 Hyperlipidemia, unspecified; I10 Essential (primary) hypertension; I25.2 Old myocardial infarction; F17.200 Nicotine dependence, unspecified, uncomplicated; F12.90 Cannabis use, unspecified, uncomplicated; Z88.0 Allergy status to penicillin; Z79.82 Long term (current) use of aspirin; Z79.899 Other long term (current) drug therapy
CPT/HCPCS: 72100; 73502; 99283; 96372; J1885

== ENCOUNTER → 2023-04-23 | Outpatient (CLI) | payer BC ==
--- NOTE | 2023-04-23 14:10 | MR ---
EXAMINATION TYPE: MR lumbar spine wo/w con DATE OF EXAM: 04/23/2023 1:19 PM COMPARISON: 03/09/2019 CT. CLINICAL INDICATION: Male, 53 years old with history of M51.37 OTHER INTERVERTEBRAL DISC DEGENERATION ; Lower back pain, LLE radiculopathy. TECHNIQUE: Multi planar, multi sequence imaging was performed utilizing: T1-weighted, T2-weighted, a nd turbo inversion recovery imaging of the lumbar spine. IV Contrast: 7 cc Gadavist. None. FINDINGS: Alignment: The lumbar vertebral bodies have preserved heights and alignment. Cord: The conus medullaris and the distal spinal cord appear unremarkable with regards to their signa l intensity and morphology. No abnormal postcontrast enhancement. Bones/Discs: Postsurgical changes at L5-S1 with susceptibility artifact present. There is multilevel degeneration changes with osteophyte formation and disc space narrowing. Facet joint arthropathy seen throughout the spine. T12-L1: No evidence of significant spinal canal stenosis or neural foraminal stenosis. L1-L2: No evidence of significant spinal canal stenosis or neural foraminal stenosis. L2-L3: Disc bulge and facet joint arthropathy result in moderate spinal canal and mild to moderate bi lateral neural foraminal stenosis. L3-L4: Disc bulge and facet joint arthropathy result in moderate spinal canal and mild to moderate bi lateral neural foraminal stenosis. L4-L5: Disc bulge and facet joint arthropathy result in moderate to severe spinal canal and moderate to severe right neural foraminal stenosis. There is disc material present within the left neural fora men suggestive with suture and neural femoral stenosis. L5-S1: The susceptibility artifact at this level limits evaluation. The disc is rounded posterior mor phology without significant spinal canal stenosis. Facet joint arthropathy with mild to moderate neur al foraminal stenosis. No significant spinal canal or neural foraminal stenosis in the remainder of the visualized levels. Other findings: None. IMPRESSION: 1. L4-L5 moderate to severe spinal canal and moderate to severe right neural foraminal stenosis. The re is a left foraminal disc extrusion resulting in severe neural foraminal stenosis at this level. 2. Multilevel spinal canal and neural femoral stenosis as described above. 3. No abnormal postcontrast enhancement.
== END | disposition home or self-care (01) ==
LOC: RADMRIMAIN 12:26
PROVIDERS: ATTEND Orthopaedic Surgery Orthopaedic Surgery of the Spine
DX: Z48.89 Encounter for other specified surgical aftercare (principal); M51.17 Intervertebral disc disorders with radiculopathy, lumbosacral region; M47.27 Other spondylosis with radiculopathy, lumbosacral region; M48.07 Spinal stenosis, lumbosacral region; M25.78 Osteophyte, vertebrae; M70.62 Trochanteric bursitis, left hip; F17.218 Nicotine dependence, cigarettes, with other nicotine-induced disorders; Z98.890 Other specified postprocedural states; M99.73 Connective tissue and disc stenosis of intervertebral foramina of lumbar region; M99.74 Connective tissue and disc stenosis of intervertebral foramina of sacral region
CPT/HCPCS: 72158; A9585

== ENCOUNTER → 2023-05-14 | Outpatient (CLI) | payer BC ==
[2023-05-14 13:49] LABS: INR 0.9 (<1.2); Prothrombin Time 9.8 sec (9.0-12.0)
[2023-05-14 20:42] LABS: Carbon Dioxide 23.4 mmol/L (21.6-31.8); Chloride 105 mmol/L (96-109); Glucose 123 mg/dL (70-110); Potassium 4.5 mmol/L (3.5-5.5); Sodium 139 mmol/L (135-145)
[2023-05-14 21:12] LABS: Basophils # (A) 0.11 X 10*3/uL (0.00-0.10); Basophils % (A) 0.7 %; Eosinophils # (A) 0.35 X 10*3/uL (0.04-0.35); Eosinophils % (A) 2.1 %; HCT 42.5 % (39.6-50.0); HGB 14.2 d/dL (13.0-17.0); Lymphocytes # (A) 2.85 X 10*3/uL (0.90-5.00); MCH 32.5 pg (27.0-32.0); MCHC 33.4 d/dL (32.0-37.0); MCV 97.3 FL (80.0-97.0); Mean Platelet Volume 10.7 FL (9.5-12.2); Monocytes # (A) 0.99 X 10*3/uL (0.20-1.00); Monocytes % (A) 5.9 %; NRBC Per 100 WBC 0 X 10*3/uL (0.00-0.01); Neutrophils # (A) 12.37 X 10*3/uL (1.80-7.70); Neutrophils % (A) 73.8 %; Platelet Count 371 X 10*3/uL (140-440); RBC 4.37 X 10*6/uL (4.40-5.60); RDW 13.7 % (11.5-14.5); WBC 16.75 X 10*3/uL (4.50-10.00)
[2023-05-14 22:01] LABS: Appearance,Urine Clear (Clear); Bilirubin,Urine Negative (Negative); Blood,Urine Negative (Negative); Color,Urine Yellow (Yellow); Ketones,Urine Trace (Negative); Nitrite,Urine Negative (Negative); PH, Urine 5.5; Specific Gravity,Urine >1.035 (1.001-1.030)
--- NOTE | 2023-05-16 08:32 | XR ---
EXAMINATION TYPE: XR chest 2V DATE OF EXAM: 05/14/2023 COMPARISON: 02/09/2023 HISTORY: Shortness of breath TECHNIQUE: Frontal and lateral views of the chest are obtained. FINDINGS: Scattered senescent parenchymal changes noted. Hyperinflation compatible with COPD. No evidence for infiltrate. No evidence for atelectasis. Heart size is stable. Mediastinal structures are stable and grossly unremarkable. No evidence for hilar prominence. Degenerative changes dorsal spine. IMPRESSION: 1. No evidence for acute pulmonary disease.
== END | disposition home or self-care (01) ==
LOC: LABPAT 11:27
PROVIDERS: ATTEND Orthopaedic Surgery Orthopaedic Surgery of the Spine
DX: Z01.818 Encounter for other preprocedural examination (principal); M48.00 Spinal stenosis, site unspecified; M54.10 Radiculopathy, site unspecified
CPT/HCPCS: 71046; 80048; 81003; 85025; 85610; 85730; 87070; 93005

== ENCOUNTER 2023-10-25 11:46 | Emergency (ER) | payer BC ==
[2023-10-25 12:10] VITALS: PULSE 66; RESP 18; TEMP 98.6
--- NOTE | 2023-10-25 12:24 | ED ---
URI HPI - General Chief Complaint: Upper Respiratory Infection Stated Complaint: Chest Congestion Time Seen by Provider: 10/25/23 12:09 Source: patient, RN notes reviewed Mode of arrival: ambulatory Limitations: no limitations - History of Present Illness Initial Comments: This is a 53-year-old male who presents to the emergency department for URI symptoms. States that yesterday he started developing coughing, congestion, and fatigue. He has not measured any fevers, but states that he does have the chills and has noticed some some sweating. The cough is nonproductive. Denies any shortness of breath or chest pain. He does report headaches. MD Complaint: cough, nasal congestion - Related Data Home Medications Medication Instructions Recorded Confirmed lisinopriL [Zestril] 10 mg PO QAM 06/15/18 05/26/23 Atorvastatin [Lipitor] 80 mg PO QAM 03/08/19 05/26/23 Aspirin 81 mg PO DAILY 06/08/19 05/26/23 Diclofenac Sodium [Voltaren] 75 mg PO QAM 03/14/21 05/26/23 Cyclobenzaprine [Flexeril] 10 mg PO TID 05/24/23 05/26/23 Omeprazole 20 mg PO QAM 05/24/23 05/26/23 Previous Rx's Medication Instructions Recorded HYDROcodone/APAP 5-325MG [[place] 1 tab PO Q6HR PRN 7 Days #28 tab 05/28/23 5-325] guaiFENesin-Coden 100-10MG/5ML 5 - 10 ml PO Q4-6H PRN #473 ml 10/25/23 [Robitussin AC] Allergies Allergy/AdvReac Type Severity Reaction Status Date / Time amoxicillin Allergy Rash/Hives Verified 02/27/23 12:14 Review of Systems ROS Statement: Those systems with pertinent positive or pertinent negative responses have been documented in the HPI. ROS Other: All systems not noted in ROS Statement are negative. Past Medical History Past Medical History: Chest Pain / Angina, GERD/Reflux, Hyperlipidemia, Hypertension, Myocardial Infarction ([place]) Additional Past Medical History / Comment(s): 'silent heart attack', bruises easily, constipation, Last Myocardial Infarction Date:: 10/11/2017 History of Any Multi-Drug Resistant Organisms: None Reported Past Surgical History: Appendectomy, Heart Catheterization With Stent, Hernia Repair, Orthopedic Surgery, Tonsillectomy Additional Past Surgical History / Comment(s): one cardiac stent, cyst removed from back of left leg, Past Anesthesia/Blood Transfusion Reactions: No Reported Reaction Date of Last Stent Placement:: 10/11/17 Past Psychological History: No Psychological Hx Reported Smoking Status: Current every day smoker Past Alcohol Use History: Occasional Past Drug Use History: Marijuana - Past Family History Father Family Medical History: Deep Vein Thrombosis (DVT), Myocardial Infarction ([place]) Additional Family Medical History / Comment(s): CABG Mother Family Medical History: No Reported History Additional Family Medical History / Comment(s): Mother is healthy General Exam Limitations: no limitations General appearance: alert, in no apparent distress Head exam: Present: atraumatic, normocephalic, normal inspection Respiratory exam: Present: normal lung sounds bilaterally. Absent: respiratory distress, wheezes, rales, rhonchi, stridor Cardiovascular Exam: Present: regular rate, normal rhythm, normal heart sounds. Absent: systolic murmur, diastolic murmur, rubs, gallop, clicks Neurological exam: Present: alert, oriented X3, CN II-XII intact Psychiatric exam: Present: normal affect, normal mood Skin exam: Present: warm, dry, intact, normal color. Absent: rash Course Vital Signs 10/25/23 10/25/23 10/25/23 12:03 12:05 12:16 Temperature 98.6 F 98.6 F Pulse Rate 66 66 Respiratory 18 18 18 Rate Blood Pressure 124/71 124/71 O2 Sat by Pulse 97 98 Oximetry 10/25/23 14:31 Temperature Pulse Rate 66 Respiratory 18 Rate Blood Pressure 119/78 O2 Sat by Pulse 97 Oximetry Medical Decision Making - Medical Decision Making This is a 53 year old male who presents to the emergency department for coughing and congestion. Was pt. sent in by a medical professional or institution? @ -No Did you speak to anyone other than the patient for history? @ -No Did you review nursing and triage notes? @ -Yes, and I agree, it is accurate with regards to the patient's symptoms. Were old charts reviewed? @ -No Differential Diagnosis? @ -Differential Cough: Influenza, Covid, RSV, croup, allergic rhinitis, GERD, pneumonia, bronchitis, COPD, viral pharyngitis, streptococcal pharyngitis, this is not meant to be an all-inclusive list. EKG interpreted by me (3pts min.)? @ -Not obtained X-rays interpreted by me (1pt min.)? @ -Chest x-ray obtained, my interpretation identifies no localized consolidations or infiltrates. CT interpreted by me (1pt min.)? @ -Not obtained U/S interpreted by me (1pt. min.)? @ -Not obtained What testing was considered but not performed? (CT, X-rays, U/S, labs)? Why? @ -None What meds were considered but not given? Why? @ -None Did you discuss the management of the patient with other professionals? @ -No Did you reconcile home meds? @ -No Was smoking cessation discussed for >3mins.? @ -I discussed smoking cessation for greater than 3 minutes. The risk of smok ing were discussed with the patient including but not limited to risks of cancer, stroke, coronary artery disease and COPD. Also discussed with patient were multiple methods of quitting smoking. Lastly we discussed the financial cost of smoking. Was critical care preformed (if so, how long)? @ -No Were there social determinants of health that impacted care today? How? (Homelessness, low income, unemployed, alcoholism, drug addiction, transportation, low edu. Level, literacy, decrease access to med. care, shelter, rehab)? @ -No Was there de-escalation of care discussed even if they declined? (Discuss DNR or withdrawal of care, Hospice)? @ -No What co-morbidities impacted this encounter? (DM, HTN, Smoking, COPD, CAD, Cancer, CVA, Hep., AIDS, mental health diagnosis, sleep apnea, morbid obesity)? @ -Smoking Was patient admitted / discharged? @ -Discharged. COVID, influenza, and RSV testing were negative. Chest x-ray reveals no acute process. Advised that symptoms are likely related to a viral URI and antibiotics are not indicated at this point. Patient declined the need for a breathing treatment in the emergency department. Prescription for Robitussin AC cough medication provided with dosing instructions reviewed. Otherwise advised getting plenty of rest and remaining well-hydrated. Patient discharged home in stable condition and will follow-up with his primary care provider. Undiagnosed new problem with uncertain prognosis? @ -None Drug Therapy requiring intensive monitoring for toxicity (Heparin, Nitro, Insulin, Cardizem)? @ -None Were any procedures done? @ -None Diagnosis/symptom? @ -Viral URI Acute, or Chronic, or Acute on Chronic? @ -Acute Uncomplicated (without systemic symptoms) or Complicated (systemic symptoms)? @ -Uncomplicated Side effects of treatment? @ -None Exacerbation, Progression, or Severe Exacerbation] @ -Not applicable Poses a threat to life or bodily function? @ -No Return precautions reviewed in depth, the patient is instructed to return to the emergency department with any new, worsening, or concerning symptoms. Patient verbalized understanding. This case was discussed in detail with the attending ED physician, Dr. Pyle. Presentation, findings, and treatment plan discussed in detail as well. - Lab Data Lab Results 10/25/23 Range/Units 12:41 Influenza Type A (PCR) Not Detected (Not Detectd) Influenza Type B (PCR) Not Detected (Not Detectd) RSV (PCR) Not Detected (Not Detectd) SARS-CoV-2 (PCR) Not Detected (Not Detectd) - Radiology Data Radiology results: report reviewed, image reviewed Disposition Clinical Impression: Nicotine dependence, URI (upper respiratory infection) Disposition: HOME SELF-CARE Instructions (If sedation given, give patient instructions): Upper Respiratory Infection (ED) Additional Instructions: Return to the emergency department with any new, worsening, or concerning symptoms. You can take the cough medication every 4-6 hours as needed. Be aware that it may make you drowsy. Follow up with your primary care provider in 1-2 days. Prescriptions: guaiFENesin-Coden 100-10MG/5ML [Robitussin AC] 5 - 10 ml PO Q4-6H PRN #473 ml PRN Reason: Cough Is patient prescribed a controlled substance at d/c from ED?: Yes When asked, does pt state using other controlled substances?: No If prescribed controlled substance>3 days was MAPS reviewed?: Prescribed <3 Days Referrals: Ezra Turner MD [Primary Care Provider] - 1-2 days Time of Disposition: 13:58
[2023-10-25] MEDS: BENZONATATE 100 MG CAP PO STA (12:43)
--- NOTE | 2023-10-25 13:28 | XR ---
EXAMINATION TYPE: XR chest 2V DATE OF EXAM: 10/25/2023 COMPARISON: 05/14/2023 INDICATION: Cough difficulty breathing congestion TECHNIQUE: Frontal and lateral views of the chest are obtained. FINDINGS: The heart size is normal. The pulmonary vasculature is normal. The lungs are clear. IMPRESSION: 1. No acute pulmonary process.
[2023-10-25] MEDS: DEXAMETHASONE SOD PHOSPHATE 10 MG/ML 1 ML VIAL IM STA (14:30)
[2023-10-25 14:40] VITALS: BP 119/78
== END 2023-10-25 14:32 | disposition home or self-care (01) ==
LOC: EC 11:46
DX: J06.9 Acute upper respiratory infection, unspecified (principal); F17.200 Nicotine dependence, unspecified, uncomplicated; I10 Essential (primary) hypertension; I25.2 Old myocardial infarction; E78.5 Hyperlipidemia, unspecified; K21.9 Gastro-esophageal reflux disease without esophagitis; F12.90 Cannabis use, unspecified, uncomplicated; Z20.822 Contact with and (suspected) exposure to COVID-19; Z79.82 Long term (current) use of aspirin; Z79.899 Other long term (current) drug therapy; Z88.0 Allergy status to penicillin; Z95.5 Presence of coronary angioplasty implant and graft; Z90.49 Acquired absence of other specified parts of digestive tract
CPT/HCPCS: 87636; 71046; 99406; 99283; 96372; J1100

== ENCOUNTER 2025-03-22 08:40 | Observation (INO) | payer BC ==
[2025-03-22 09:06] LABS: Basophils # (A) 0.11 10*3/uL (0.00-0.10); Basophils % (A) 0.9 %; Eosinophils # (A) 0.24 10*3/uL (0.04-0.35); Eosinophils % (A) 2.0 %; HCT 39.1 % (39.6-50.0); HGB 13.8 g/dL (13.0-17.0); Lymphocytes # (A) 2.57 10*3/uL (0.90-5.00); Lymphocytes % (A) 21.4 %; MCH 33.4 pg (27.0-32.0); MCHC 35.3 g/dL (32.0-37.0); MCV 94.7 fL (80.0-97.0); Monocytes # (A) 0.97 10*3/uL (0.20-1.00); Monocytes % (A) 8.1 %; Neutrophils # (A) 8.07 10*3/uL (1.80-7.70); Neutrophils % (A) 67.2 %; Platelet Count 283 10*3/uL (140-440); RBC 4.13 10*6/uL (4.40-5.60); RDW 13.2 % (11.5-14.5); WBC 12.01 10*3/uL (4.50-10.00)
[2025-03-22 09:16] LABS: INR 1.0 (<1.2); Partial Thromboplastin Time 22.4 sec (22.0-30.0); Prothrombin Time 11.1 sec (10.0-12.5)
[2025-03-22 09:17] LABS: ALT 30 U/L (4-49); AST 31 U/L (17-59); African American GFR (CKD) >90 (>60 ml/min/1.73 sqM); Albumin 4.0 g/dL (3.5-5.0); Alkaline Phosphatase 77 U/L (38-126); Anion Gap 10 mmol/L; Blood Urea Nitrogen 24 mg/dL (9-20); Calcium 10.2 mg/dL (8.4-10.2); Carbon Dioxide 22 mmol/L (22-30); Chloride 104 mmol/L (98-107); Glucose 112 mg/dL (74-99); Magnesium 1.7 mg/dL (1.6-2.3); Non-African American GFR(CKD) 90 (>60 ml/min/1.73 sqM); Potassium 4.7 mmol/L (3.5-5.1); Sodium 136 mmol/L (137-145); Total Protein 6.3 g/dL (6.3-8.2)
--- NOTE | 2025-03-22 09:24 | XR ---
EXAMINATION TYPE: XR chest 2V DATE OF EXAM: 03/22/2025 9:20 AM COMPARISON: 10/25/2023 CLINICAL INDICATION: Male, 54 years old with history of Chest Pain, TECHNIQUE: XR chest 2V view(s) obtained. FINDINGS: The heart size is normal. The pulmonary vasculature is normal. The lungs are clear. IMPRESSION: 1. No acute pulmonary process. [facility], , 03/22/2025 9:22 AM
--- NOTE | 2025-03-22 10:03 | ED ---
Chest Pain HPI - General Chief Complaint: Chest Pain Stated Complaint: Chest Pain Time Seen by Provider: 03/22/25 09:00 Source: patient Mode of arrival: EMS Limitations: no limitations - History of Present Illness Initial Comments: 54-year-old male with past medical history of coronary artery disease status post stent placement in 2018 who presents emergency department reporting chest pain. States that the pain was located on the left side and radiates to the left arm. EMS provided the patient with 324 mg of chewable aspirin and 1 nitro. Brought the pain from a 5 to a 2. He denies shortness of breath. No fevers, chills or cough. Mild nausea without vomiting. Denies a ripping or tearing station to his back. No numbness in his arms or legs. No other alleviating, precipitating or modifying factors - Related Data Home Medications Medication Instructions Recorded Confirmed lisinopriL [Zestril] 10 mg PO DAILY 06/15/18 03/22/25 Atorvastatin [Lipitor] 80 mg PO DAILY 03/08/19 03/22/25 Aspirin 81 mg PO DAILY 06/08/19 03/22/25 Omeprazole 20 mg PO DAILY 05/24/23 03/22/25 Allergies Allergy/AdvReac Type Severity Reaction Status Date / Time amoxicillin Allergy Rash/Hives Verified 03/22/25 10:44 Review of Systems ROS Statement: Those systems with pertinent positive or pertinent negative responses have been documented in the HPI. ROS Other: All systems not noted in ROS Statement are negative. Past Medical History Past Medical History: Chest Pain / Angina, GERD/Reflux, Hyperlipidemia, Hypertension, Myocardial Infarction ([place]) Additional Past Medical History / Comment(s): 'silent heart attack', bruises easily, constipation, Last Myocardial Infarction Date:: 10/11/2017 History of Any Multi-Drug Resistant Organisms: None Reported Past Surgical History: Appendectomy, Heart Catheterization With Stent, Hernia Repair, Orthopedic Surgery, Tonsillectomy Additional Past Surgical History / Comment(s): one cardiac stent, cyst removed from back of left leg, Past Anesthesia/Blood Transfusion Reactions: No Reported Reaction Date of Last Stent Placement:: 10/11/17 Past Psychological History: No Psychological Hx Reported Smoking Status: Current every day smoker Past Alcohol Use History: Occasional Past Drug Use History: Marijuana - Past Family History Father Family Medical History: Deep Vein Thrombosis (DVT), Myocardial Infarction ([place]) Additional Family Medical History / Comment(s): CABG Mother Family Medical History: No Reported History Additional Family Medical History / Comment(s): Mother is healthy General Exam Limitations: no limitations General appearance: alert, in no apparent distress Head exam: Present: atraumatic, normocephalic, normal inspection Eye exam: Present: normal appearance, PERRL, EOMI. Absent: scleral icterus, conjunctival injection, periorbital swelling ENT exam: Present: normal exam, mucous membranes moist Neck exam: Present: normal inspection. Absent: tenderness, meningismus, lymphadenopathy Respiratory exam: Present: normal lung sounds bilaterally. Absent: respiratory distress, wheezes, rales, rhonchi, stridor Cardiovascular Exam: Present: regular rate, normal rhythm, normal heart sounds. Absent: systolic murmur, diastolic murmur, rubs, gallop, clicks GI/Abdominal exam: Present: soft, normal bowel sounds. Absent: distended, tenderness, guarding, rebound, rigid Extremities exam: Present: normal inspection, full ROM, normal capillary refill. Absent: tenderness, pedal edema, joint swelling, calf tenderness Back exam: Present: normal inspection Neurological exam: Present: alert, oriented X3, CN II-XII intact Psychiatric exam: Present: normal affect, normal mood Skin exam: Present: warm, dry, intact, normal color. Absent: rash Course Vital Signs 03/22/25 08:58 Temperature 97.6 F Pulse Rate 60 Respiratory 18 Rate Blood Pressure 126/70 O2 Sat by Pulse 98 Oximetry Chest Pain MDM - MDM Was pt. sent in by a medical professional or institution (, PA, COVER STITCH MACHINE OPERATOR, urgent care, hospital, or senior care...) When possible be specific @ -[No] Did you speak to anyone other than the patient for history (EMS, parent, family, police, friend...)? What history was obtained from this source @ -[No] Did you review nursing and triage notes (agree or disagree)? Why? @ -[I reviewed and agree with nursing and triage notes] Were old charts reviewed (outside hosp., previous admission, EMS record, old EKG, old radiological studies, urgent care reports/EKG's, senior care records)? Report findings @ -[No old charts were reviewed] Differential Diagnosis (chest pain, altered mental status, abdominal pain women, abdominal pain men, vaginal bleeding, weakness, fever, dyspnea, syncope, headac he, dizziness, GI bleed, back pain, seizure, CVA, palpatations, mental health, musculoskeletal)? @ -[not applicable] EKG interpreted by me (3pts min.). @ -Yes and demonstrates sinus bradycardia with a rate of 47. OK interval 121. QRS 94. QTc of 380. No acute ST segment elevations or depressions X-rays interpreted by me (1pt min.). @ -[None done] CT interpreted by me (1pt min.). @ -[None done] U/S interpreted by me (1pt. min.). @ -[None done] What testing was considered but not performed or refused? (CT, X-rays, U/S, labs)? Why? @ -[None] What meds were considered but not given or refused? Why? @ -[None] Did you discuss the management of the patient with other professionals (professionals i.e. , PA, COVER STITCH MACHINE OPERATOR, lab, RT, psych nurse, social science manager, tank builder helper, teacher, promotions officer, case advocate)? Give summary @ -[No] Was smoking cessation discussed for >3mins.? @ -[No] Was critical care preformed (if so, how long)? @ -[No] Were there social determinants of health that impacted care today? How? (Homelessness, low income, unemployed, alcoholism, drug addiction, transportation, low edu. Level, literacy, decrease access to med. care, [facility], rehab)? @ -[No] Was there de-escalation of care discussed even if they declined (Discuss DNR or withdrawal of care, Hospice)? DNR status @ -[No] What co-morbidities impacted this encounter? (DM, HTN, Smoking, COPD, CAD, Cancer, CVA, ARF, Chemo, Hep., AIDS, mental health diagnosis, sleep apnea, morbid obesity)? @ -[None] Was patient admitted / discharged? Hospital course, mention meds given and route, prescriptions, significant lab abnormalities, going to OR and other pertinent info. @ -[hospital course] Undiagnosed new problem with uncertain prognosis? @ -[No] Drug Therapy requiring intensive monitoring for toxicity (Heparin, Nitro, Insulin, Cardizem)? @ -[No] Were any procedures done? @ -[No] Diagnosis/symptom? @ -[default] Acute, or Chronic, or Acute on Chronic? @ -[default] Uncomplicated (without systemic symptoms) or Complicated (systemic symptoms)? @ -[default] Side effects of treatment? @ -[No] Exacerbation, Progression, or Severe Exacerbation? @ -[No] Poses a threat to life or bodily function? How? (Chest pain, [place], [place], pneumonia, PE, COPD, DKA, ARF, appy, cholecystitis, CVA, Diverticulitis, Homicidal, Suicidal, threat to staff... and all critical care pts) @ -[No] Disposition Clinical Impression: Chest pain Disposition: ADMITTED IP TO THIS [facility] Condition: Stable Is patient prescribed a controlled substance at d/c from ED?: No Referrals: Ezra Turner MD [Primary Care Provider] - 1-2 days Time of Disposition: 11:30 Decision to Admit Reason: Admit from EC Decision Date: 03/22/25 Decision Time: 11:30
[2025-03-22] MEDS ORDERED: NALOXONE 0.4 MG/ML 1 ML VIAL IV PRN (11:30)
[2025-03-22] MEDS: PANTOPRAZOLE 40 MG TABLET PO SCH (13:21)
[2025-03-22] MEDS: ATORVASTATIN 80 MG TAB PO SCH (13:21)
[2025-03-22] MEDS: ASPIRIN 81 MG PO SCH (13:21)
--- NOTE | 2025-03-22 20:44 | HP ---
HISTORY AND PHYSICAL CHIEF COMPLAINT: Chest pain. HISTORY OF PRESENT ILLNESS: This is a 54-year-old gentleman, who came to the emergency room after he developed acute anterior chest pain associated with some diaphoresis and shortness of breath. He has a history of ASCVD. He is admitted for observation and frequent monitoring of his vital signs and troponins. REVIEW OF SYSTEMS: Otherwise unremarkable. Past medical history, family history, personal and social histories are similarly unremarkable. PHYSICAL EXAMINATION: VITAL SIGNS: Normal. HEAD, EARS, EYES, NOSE, MOUTH, AND THROAT: Normal. CHEST: Clear. HEART: Normal. ABDOMEN: Soft and nontender. EXTREMITIES: Normal. NEUROLOGICAL: Intact. DIAGNOSES: He was admitted to the hospital with diagnoses; 1. Chest pain. 2. Atherosclerotic cardiovascular disease. 3. Chronic obstructive pulmonary disease. PLAN: 1. Bedrest. 2. IV fluids. 3. Serial EKGs and enzymes. 4. Cardiology consult. MMODL / ROSALINDN: [id number] /
[2025-03-23 05:35] LABS: Basophils # (A) 0.09 10*3/uL (0.00-0.10); Basophils % (A) 0.9 %; Eosinophils # (A) 0.51 10*3/uL (0.04-0.35); Eosinophils % (A) 5.3 %; HCT 41.2 % (39.6-50.0); HGB 14.0 g/dL (13.0-17.0); Lymphocytes # (A) 2.83 10*3/uL (0.90-5.00); Lymphocytes % (A) 29.2 %; MCH 32.5 pg (27.0-32.0); MCHC 34.0 g/dL (32.0-37.0); MCV 95.6 fL (80.0-97.0); Monocytes # (A) 1.01 10*3/uL (0.20-1.00); Monocytes % (A) 10.4 %; Neutrophils # (A) 5.20 10*3/uL (1.80-7.70); Neutrophils % (A) 53.8 %; Platelet Count 272 10*3/uL (140-440); RBC 4.31 10*6/uL (4.40-5.60); RDW 13.3 % (11.5-14.5); WBC 9.68 10*3/uL (4.50-10.00)
[2025-03-23 05:54] LABS: African American GFR (CKD) >90 (>60 ml/min/1.73 sqM); Anion Gap 6 mmol/L; Blood Urea Nitrogen 13 mg/dL (9-20); Calcium 9.4 mg/dL (8.4-10.2); Carbon Dioxide 23 mmol/L (22-30); Chloride 108 mmol/L (98-107); Glucose 97 mg/dL (74-99); Non-African American GFR(CKD) >90 (>60 ml/min/1.73 sqM); Potassium 4.5 mmol/L (3.5-5.1); Sodium 137 mmol/L (137-145)
--- NOTE | 2025-03-23 10:26 | P.CRDCN ---
History of Present Illness Consult date: 03/23/25 Consult reason: chest pain History of present illness: This is a 54-year-old male patient of Dr. Leny Briscoe with past medical history of coronary artery disease with stent to the RCA and known mild to moderate disease in the proximal and midportion of the ramus intermedius, hyperlipidemia, mitral valve insufficiency, hypertension. We have been asked to evaluate the patient for chest pain. Patient states that he has been under a lot more stress lately. He states he was at work yesterday and he could not catch his breath. He was feeling dizzy and actually kneeled down on the floor and felt that his heart was fluttering. He had chest discomfort which was a pushing sensation on his chest. He had this previously on and off for the past few days but worse yesterday. Yesterday and lasted for about 20 minutes. Patient was picked up by EMS and was given nitroglycerin which helped a little bit. He states he does have nitroglycerin at home but has not taken it for more than a year. He denies any symptoms at this time. Patient is an active smoker 1 pack/day. He uses marijuana occasionally. He uses alcohol use occasionally on the weekends. Blood pressure 119/61, heart rate 45, pulse ox 98% on room air. -EKG: Sinus rhythm with no acute ST-T wave changes. -Chest x-ray: No acute process. -Laboratory studies: WBC 12 and repeat 9.6, hemoglobin 14, sodium 137, potassium 4.5, BUN 13 creatinine 0.83. Troponin negative x 3. -Home cardiac medications: Aspirin 81 mg daily, atorvastatin 80 mg daily, lisinopril 10 mg daily. -Lexiscan Cardiolite stress test performed in the office on 05/07/2023 was a negative stress test by EKG criteria. Normal myocardial perfusion and function. -Stress echocardiogram performed in the office on 07/06/2018 revealed good exercise tolerance, negative stress test but he is criteria, negative stress echocardiogram. -Cardiac catheterization performed 2017 revealed patent stent within the right coronary artery, mild to moderate disease involving the proximal and midportion of the ramus intermedius which has remained unchanged compared to previous cardiac catheterization done in September. No intervention performed. Plan for medical management. Review Of Systems: At the time of my exam: CONSTITUTIONAL: Denies fever or chills. HEENT: Denies blurred vision, vision changes, or eye pain. Denies hemoptysis CARDIOVASCULAR: Denies chest pain. Denies orthopnea. Denies PND. Denies palpitations RESPIRATORY: Denies shortness of breath. GASTROINTESTINAL: Denies abdominal pain. Denies nausea or vomiting. HEMATOLOGIC: Denies bleeding disorders. GENITOURINARY: Denies any blood in urine. SKIN: Denies puritis. Denies rash. Physical examination: Gen: This is a 54-year-old male in no acute distress. VS: reviewed HEENT: Head is atraumatic, normocephalic. Pupils equal, round. Sclerae is anicteric. NECK: Supple. No JVD. LUNGS: Clear to auscultation. No wheezes or rhonchi. No intercostal retrac tions. HEART: Regular rate and rhythm. No murmur. ABDOMEN: Soft No tenderness. EXTREMITIES: No pedal edema. No calf tenderness. NEUROLOGICAL: Patient is awake, alert and oriented x3. Assessment: Atypical chest pain, acute coronary syndrome ruled out Dizziness History of coronary artery disease with previous stent to the RCA and known mild to moderate disease involving the proximal and midportion of the ramus intermedius Hyperlipidemia Mitral valve insufficiency Hypertension Tobacco use and dependence Occasional marijuana use Weekend alcohol use Plan: Resume patient's home cardiac medications Stress echocardiogram was ordered but patient developed significant difficulty in breathing and was 40 beats off target, test was aborted. Stress test changed to Lexiscan. Obtain 2-D echocardiogram and Doppler study to assess cardiac structure and function If testing is unremarkable, patient is cleared for discharge from cardiology and will follow-up in the office with Dr. Leny Briscoe in 2 weeks. Thank you kindly for this consultation. Nurse practitioner note has been reviewed, I agree with documented findings and plan of care. Patient was seen and examined. Past Medical History Past Medical History: Chest Pain / Angina, GERD/Reflux, Hyperlipidemia, Hypertension, Myocardial Infarction ([place]) Additional Past Medical History / Comment(s): 'silent heart attack', bruises easily, constipation, Last Myocardial Infarction Date:: 10/11/2017 History of Any Multi-Drug Resistant Organisms: None Reported Past Surgical History: Appendectomy, Heart Catheterization With Stent, Hernia Repair, Orthopedic Surgery, Tonsillectomy Additional Past Surgical History / Comment(s): one cardiac stent, cyst removed from back of left leg, Past Anesthesia/Blood Transfusion Reactions: No Reported Reaction Date of Last Stent Placement:: 10/11/17 Past Psychological History: No Psychological Hx Reported Additional Psychological History / Comment(s): Pt resides with his spouse. He is independent Smoking Status: Current every day smoker Past Alcohol Use History: Occasional Additional Past Alcohol Use History / Comment(s): Pt started smoking in 1988 and is a ppd smoker. Past Drug Use History: Marijuana Additional Drug Use History / Comment(s): 1 joint daily - Past Family History Father Family Medical History: Deep Vein Thrombosis (DVT), Myocardial Infarction ([place]) Additional Family Medical History / Comment(s): CABG Mother Family Medical History: No Reported History Additional Family Medical History / Comment(s): Mother is healthy Medications and Allergies Home Medications Medication Instructions Recorded Confirmed Type lisinopriL [Zestril] 10 mg PO DAILY 06/15/18 03/22/25 History Atorvastatin [Lipitor] 80 mg PO DAILY 03/08/19 03/22/25 History Aspirin 81 mg PO DAILY 06/08/19 03/22/25 History Omeprazole 20 mg PO DAILY 05/24/23 03/22/25 History Allergies Allergy/AdvReac Type Severity Reaction Status Date / Time amoxicillin Allergy Rash/Hives Verified 03/22/25 10:44 Physical Exam Vitals: Vital Signs Temp Pulse Pulse Resp BP BP Pulse Ox 03/23/25 07:00 97.9 F 45 L 16 119/61 98 03/23/25 01:25 97.6 F 42 L 15 105/61 98 03/22/25 18:58 97.8 F 43 L 17 116/68 98 03/22/25 14:16 98.4 F 81 16 98/51 97 03/22/25 12:00 42 L 18 125/76 97 03/22/25 11:57 97.8 F 41 L 16 118/61 99 03/22/25 08:58 97.6 F 60 18 126/70 98 Intake and Output 03/22/25 03/23/25 03/23/25 22:59 06:59 14:59 Intake Total 237 Balance 237 Intake: Oral 237 Other: # Voids 1 1 Results 03/23/25 04:44 03/23/25 04:44 Cardiac Enzymes 03/22/25 03/22/25 03/22/25 Range/Units 08:56 08:56 15:16 AST 31 (17-59) U/L Troponin I <0.012 <0.012 (0.000-0.034) ng/mL 03/22/25 Range/Units 18:03 AST (17-59) U/L Troponin I <0.012 (0.000-0.034) ng/mL Coagulation 03/22/25 Range/Units 08:56 PT 11.1 (10.0-12.5) sec APTT 22.4 (22.0-30.0) sec CBC 03/22/25 03/23/25 Range/Units 08:56 04:44 WBC 12.01 H 9.68 (4.50-10.00) 10*3/uL RBC 4.13 L 4.31 L (4.40-5.60) 10*6/uL Hgb 13.8 14.0 (13.0-17.0) g/dL Hct 39.1 L 41.2 (39.6-50.0) % Plt Count 283 272 (140-440) 10*3/uL Comprehensive Metabolic Panel 03/22/25 03/23/25 Range/Units 08:56 04:44 Sodium 136 L 137 (137-145) mmol/L Potassium 4.7 4.5 (3.5-5.1) mmol/L Chloride 104 108 H (98-107) mmol/L Carbon Dioxide 22 23 (22-30) mmol/L BUN 24 H 13 (9-20) mg/dL Creatinine 0.97 0.83 (0.66-1.25) mg/dL Glucose 112 H 97 (74-99) mg/dL Calcium 10.2 9.4 (8.4-10.2) mg/dL AST 31 (17-59) U/L ALT 30 (4-49) U/L Alkaline Phosphatase 77 (38-126) U/L Total Protein 6.3 (6.3-8.2) g/dL Albumin 4.0 (3.5-5.0) g/dL Current Medications Generic Name Dose Route Start Last Admin Trade Name Freq PRN Reason Stop Dose Admin Aspirin 81 mg 03/22/25 12:45 03/23/25 08:10 Aspirin 81 Mg PO 81 mg DAILY AMINAAT Administration Atorvastatin Calcium 80 mg 03/22/25 12:45 03/23/25 08:10 Atorvastatin 80 Mg Tab PO 80 mg DAILY AMINATA Administration Lisinopril 10 mg 03/22/25 12:45 03/23/25 08:10 Lisinopril 10 Mg Tab PO 10 mg DAILY AMINATA Administration Naloxone HCl 0.2 mg 03/22/25 11:30 Naloxone 0.4 Mg/Ml 1 Ml Vial IV Q2M PRN Opioid Reversal Pantoprazole Sodium 40 mg 03/22/25 12:45 03/23/25 08:11 Pantoprazole 40 Mg Tablet PO 40 mg DAILY AMINATA Administration Intake and Output 03/22/25 03/23/25 03/23/25 22:59 06:59 14:59 Intake Total 237 Balance 237 Intake: Oral 237 Other: # Voids 1 1 03/23/25 04:44 03/23/25 04:44
[2025-03-23] MEDS ORDERED: CAFFEINE CITRATE 60 MG/3 ML VIAL IV PRN (10:34)
[2025-03-23] MEDS ORDERED: REGADENOSON 0.4 MG/5 ML SYRINGE IV PRN (10:34)
[2025-03-23] MEDS ORDERED: AMINOPHYLLINE 500 MG/20 ML VIAL IV PRN (10:34)
--- NOTE | 2025-03-23 20:25 | CA ---
Transthoracic Echo Report Name: Lior Lao Age: 54 Gender: M : 1970 Exam Date: 03/23/2025 10:12 Exam Location: [facility] Ht (in): 69 Wt (lb): 165 Ordering Physician: Sarah Amezcua Attending/Referring Phys: [id number], [employer] Specialist Ciara Vasquez, JOSELO Procedure CPT: Indications: LVF, chest pain Cardiac Hx: Technical Quality: Good Contrast 1: Definity Total Dose (mL): 2 Contrast 2: Total Dose (mL): MEASUREMENTS (Male / Female) Normal Values 2D ECHO LV Diastolic Diameter PLAX 5.1 cm 4.2 - 5.9 / 3.9 - 5.3 cm LV Systolic Diameter PLAX 3.7 cm IVS Diastolic Thickness 0.9 cm 0.6 - 1.0 / 0.6 - 0.9 cm LVPW Diastolic Thickness 0.9 cm 0.6 - 1.0 / 0.6 - 0.9 cm LV Relative Wall Thickness 0.4 RV Internal Dim ED PLAX 3.1 cm LVOT Diameter 2.0 cm Aortic Root Diameter 3.2 cm LA Systolic Diameter LX 3.3 cm 3.0 - 4.0 / 2.7 - 3.8 cm LV Diastolic Volume MOD BP 138.8 cm??? 67 - 155 / 56 - 104 cm??? LV Systolic Volume MOD BP 53.4 cm??? 22 - 58 / 19 - 49 cm??? LV Ejection Fraction MOD BP 61.5 % >= 55 % LV Cardiac Index MOD BP 2141.1 cm???/min???m??? LV Diastolic Volume MOD 4C 133.3 cm??? LV Systolic Volume MOD 4C 53.2 cm??? LV Ejection Fraction MOD 4C 60.1 % LV Cardiac Index MOD 4C 2006.9 cm???/min???m??? LV Diastolic Length 4C 8.1 cm LV Systolic Length 4C 7.0 cm LV Diastolic Volume MOD 2C 137.2 cm??? LV Systolic Volume MOD 2C 53.7 cm??? LV Ejection Fraction MOD 2C 60.8 % LV Cardiac Index MOD 2C 2091.4 cm???/min???m??? LV Diastolic Length 2C 8.6 cm LV Systolic Length 2C 7.1 cm DOPPLER Mitral E Point Velocity 65.9 cm/s Mitral A Point Velocity 68.6 cm/s Mitral E to A Ratio 1.0 MV Deceleration Time 305.4 ms MV E' Velocity 8.1 cm/s Mitral E to MV E' Ratio 8.1 TR Peak Velocity 181.9 cm/s TR Peak Gradient 13.2 mmHg FINDINGS Left Ventricle Left ventricular ejection fraction is estimated at 55-60 %. Normal left ventricular systolic function with no obvious regional wall motion abnormalities. Left ventricular cavity size normal. Left ventricular wall thickness normal. Right Ventricle . Right ventricular systolic pressure within normal limits. Right Atrium Normal right atrial size. Left Atrium Normal left atrial size. Mitral Valve Mild mitral annular calcification. No mitral stenosis. No mitral regurgitation. Aortic Valve Trileaflet aortic valve. Thickened aortic valve without stenosis. No aortic regurgitation. Tricuspid Valve Structurally normal tricuspid valve. No tricuspid stenosis. Trace tricuspid regurgitation. Pulmonic Valve Structurally normal pulmonic valve. No pulmonic stenosis. Trace pulmonic regurgitation. Pericardium No pericardial effusion. Aorta Normal size aortic root and proximal ascending aorta. CONCLUSIONS LVEF 55% No obvious regional wall motion abnormality Normal RV size and systolic function No obvious valvular dysfunction Previewed by: Dr Titi Kimble (Electronically Signed) Final Date: 23 March 2025 20:25
--- NOTE | 2025-03-23 20:40 | PN ---
PROGRESS NOTE CHIEF COMPLAINT: Chest pain. HISTORY OF PRESENT ILLNESS: This gentleman is doing well. He has had no further pain. He has been seen by Cardiology and awaits their decisions about possible intervention. He is already agitated and states that he is leaving the hospital the day either way. PHYSICAL EXAMINATION: CHEST: Clear. CARDIAC: Normal. ABDOMEN: Soft, nontender. IMPRESSION: 1. Chest pain. 2. History of coronary artery disease status post 1 stents. 3. Chronic obstructive pulmonary disease. PLAN: Await Cardiology's recommendations. He may sign out. MMODL / IJN: [id number] /
[2025-03-24 07:32] VITALS: RESP 18; TEMP 98.2
[2025-03-24 08:48] VITALS: BP 122/72; PULSE 47
--- NOTE | 2025-03-25 04:07 | DS ---
DISCHARGE SUMMARY CHIEF COMPLAINT: Chest pain. HISTORY OF PRESENT ILLNESS AND PHYSICAL EXAMINATION: Details of this man's history and physical can be found in the initial workup. COURSE IN THE HOSPITAL: After admission, he was placed at bedrest and started on intravenous fluids. He had serial EKGs and enzymes. He was seen by Cardiology. He was taken for an attempted treadmill exercise test, but could not complete it due to shortness of breath. Cardiology investigated whether or not other studies would be performed. The patient was stable, doing well, and signed out against medical advice on 03/24/2025. FINAL DIAGNOSES: 1. Chest pain. 2. History of coronary artery disease with previous stenting. 3. Chronic obstructive pulmonary disease. 4. Atherosclerotic cardiovascular disease. OPERATIONS: None. CONSULTATIONS: Cardiology. MMPAULO / DIXIE: [id number] /
== END 2025-03-24 10:44 | disposition left against medical advice (07) ==
LOC: EC 08:40 → 1SOBS 11:31 → 6NMEDSUR 03-23 14:07
PROVIDERS: ADMIT Family Medicine; ATTEND Family Medicine
DX: R07.89 Other chest pain (principal); R42 Dizziness and giddiness; K21.9 Gastro-esophageal reflux disease without esophagitis; I25.10 Atherosclerotic heart disease of native coronary artery without angina pectoris; I25.2 Old myocardial infarction; I10 Essential (primary) hypertension; I34.0 Nonrheumatic mitral (valve) insufficiency; E78.5 Hyperlipidemia, unspecified; J44.9 Chronic obstructive pulmonary disease, unspecified; F17.210 Nicotine dependence, cigarettes, uncomplicated; Z53.29 Procedure and treatment not carried out because of patient's decision for other reasons; Z79.82 Long term (current) use of aspirin; Z79.899 Other long term (current) drug therapy; Z95.5 Presence of coronary angioplasty implant and graft; Z88.0 Allergy status to penicillin
CPT/HCPCS: 99285; 36415; 93005; 93306; 80053; 80048; 83735; 84484; 85025 ×2; 85610; 85730; 71046; G0378 ×3